=== PATIENT | male | born 1990 | race Caucasian/White ===

== ENCOUNTER 2016-09-08 13:22 | Inpatient (IN) | payer BC, OTHER ==
[2016-09-08] VITALS (16 sets, daily range): BP systolic 95–118; BP diastolic 62–85; PULSE 80–121; RESP 13–25; Ht 152.4 cm; Wt 40.1 kg
[~2016-09-08] VITALS: Ht 152.4 cm; Wt 40.1 kg
[2016-09-08] MEDS ORDERED: morphine 2 MG INJ IV PRN (15:30)
--- NOTE | 2016-09-08 16:21 | CONS ---
Date/Time of Note Date/Time of Note DATE: 09/08/16 TIME: 16:20 Assessment/Plan Assessment/Plan Additional Assessment/Plan 1. probable pna vs mucus plug 2. resp failure 3. g tube 4. fever 5. Musuclar dystrophy 6. stenotrophomonas colonization R: umaña cx procalc serial cxr possible bronch Vanco/zosyb/bactrim will follow closely with you. thank you for consulting Dr. Villa Consultation Date/Type/Reason Admit Date/Time Sep 08, 2016 at 15:10 Date of Consultation: Sep 08, 2016 Reason for Consultation abx; fever Referring Provider: SY VILLA Hx of Present Illness Mr Coreas is an unfortunate 26 yo male with hx of Muscular Dystrophy, resp failure , trach, gtube, recently admitted at [facility] for apparnet viral uri. He was treated for pna. Official records pending. He required trach/peg. He was recently at [facility], noted to be febrile and hypoxic with increased secretions. Plan for bronch. c/o fatigue/fever cough Constitutional: improved, no complaints Eyes: no complaints ENT: no complaints Respiratory: no complaints Past Medical History as per hpi Exam/Review of Systems Vital Signs Vitals Vital Signs Date Time Temp Pulse Resp B/P Pulse Ox O2 Delivery O2 Flow Rate FiO2 09/08/16 15:42 115 22 98 35 Exam Constitutional: alert, oriented, well developed Psych: nl mood/affect, no complaints Head: atraumatic, normocephalic Eyes: EOMI, PERRL, nl conjunctiva, nl lids, nl sclera ENMT: nl external ears & nose, nl lips & teeth, nl nasal mucosa & septum Neck: non-tender, supple Respiratory: normal air movement, other (rhonchi) Gastrointestinal: nl liver, spleen, non-tender, soft Musculoskeletal: nl extremities to inspection, nl gait and stance 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
[2016-09-08] MEDS ORDERED: VANCOMYCIN IV PER PHARMACY XX SCH (16:30)
[2016-09-08] MEDS: HYDROmorphONE 1 MG/ML SYG IV PRN ×2 (17:11→21:05)
[2016-09-08] MEDS: PIPER-TAZO 3.375 GM IV (PMX) 100 ML IVPB SCH (17:35)
[2016-09-08] MEDS ORDERED: DEXTROSE IVPB SCH (18:00)
[2016-09-08] MEDS ORDERED: VANCOMYCIN 750 MG in SOD CHLORIDE 0.9% 150 ML IVPB SCH (18:00)
[2016-09-08] MEDS ORDERED: SULFAMETHOXAZOLE IVPB SCH (18:00)
[2016-09-08] MEDS ORDERED: TRIMETHOPRIM IVPB SCH (18:00)
[2016-09-08 19:39] LABS: ADD UMIC NO; URINE BILIRUBIN (Dip) NEGATIVE (NEGATIVE); URINE BLOOD (Dip) NEGATIVE (NEGATIVE); URINE COLOR YELLOW (YELLOW); URINE GLUCOSE (Dip) NEGATIVE (NEGATIVE); URINE KETONES (Dip) NEGATIVE (NEGATIVE); URINE LEUKOCYTE ESTERASE (Dip) NEGATIVE (NEGATIVE); URINE NITRITE (Dip) NEGATIVE (NEGATIVE); URINE TOTAL PROTEIN (Dip) NEGATIVE (NEGATIVE); URINE UROBILINOGEN (Dip) 0.2 E.U./dL (0.1-1.0)
[2016-09-08] MEDS: DEXTROSE IVPB SCH (21:01)
[2016-09-08] MEDS: SULFAMETHOXAZOLE IVPB SCH (21:01)
[2016-09-08] MEDS: TRIMETHOPRIM IVPB SCH (21:01)
[2016-09-09] VITALS (36 sets, daily range): BP systolic 93–120; BP diastolic 59–76; PULSE 71–108; RESP 12–26
[2016-09-09] MEDS: HYDROmorphONE 1 MG/ML SYG IV PRN ×6 (00:24→22:16)
[2016-09-09] MEDS: PIPER-TAZO 3.375 GM IV (PMX) 100 ML IVPB SCH ×4 (00:55→18:31)
[2016-09-09] MEDS: VANCOMYCIN 500MG/NS (PMX) 100 ML IVPB SCH ×3 (03:08→19:43)
[2016-09-09] MEDS: TRIMETHOPRIM IVPB SCH ×3 (05:09→20:15)
[2016-09-09] MEDS: DEXTROSE IVPB SCH ×3 (05:09→20:15)
[2016-09-09] MEDS: SULFAMETHOXAZOLE IVPB SCH ×3 (05:09→20:15)
[2016-09-09 06:22] LABS: POTASSIUM 3.8 mmol/L (3.5-5.1)
[2016-09-09 06:25] LABS: BASOPHIL # 0.1 10^3/ul (0.0-0.1); CREATININE 0.17 mg/dl (0.61-1.24); EOSINOPHILS # 0.3 10^3/ul (0.0-0.5); HEMATOCRIT 28.7 % (42.0-52.0); HEMOGLOBIN 9.8 g/dl (14.0-18.0); LYMPHOCYTES % 29.7 % (15.0-51.0); MEAN CORPUSCULAR HEMOGLOBIN 30.1 pg (29.0-33.0); MEAN CORPUSCULAR HGB CONC 34.2 g/dl (32.0-37.0); MEAN PLATELET VOLUME 7.8 fl (7.4-10.4); MONOCYTE # 0.5 10^3/ul (0.3-0.9); MONOCYTES % 7.3 % (0.0-11.0); NEUTROPHIL # 3.8 10^3/ul (1.6-7.5); PLATELET COUNT 308 10^3/UL (140-440); RED BLOOD COUNT 3.26 10^6/ul (4.70-6.10); RED CELL DISTRIBUTION WIDTH 15.1 % (11.5-14.5); UNCORRECTED WBC 6.6 10^3/ul (4.8-10.8); WHITE BLOOD COUNT 6.6 10^3/ul (4.8-10.8)
[2016-09-09 06:26] LABS: CALCIUM 9.1 mg/dl (8.4-10.2); PHOSPHORUS 5.9 mg/dl (2.5-4.9)
[2016-09-09 06:29] LABS: CONDITION 1; LH ANALYZER COMMENTS 1
--- NOTE | 2016-09-09 07:45 | CONS ---
Date/Time of Note Date/Time of Note DATE: 09/09/16 TIME: 07:41 Assessment/Plan Assessment/Plan Additional Assessment/Plan Assessment and recommendations; next 1. Patient transferred from [facility] for bronchoscopy because of persistent left lower lobe atelectasis which has been refractory to Mucomyst and chest PT. 2. Improving leukocytosis as well as resolution of fever. 3. Possibly left lower lobe pneumonia. Patient currently on appropriate antibiotic regimen. 4. [place] muscular dystrophy causing chronic respiratory failure. 5. Prior history of mucus plugging requiring bronchoscopy at the previous hospital before transfer to [facility]. Continue current treatment. Patient is scheduled for a bronchoscopy which will be performed shortly. Consent has been obtained. Consultation Date/Type/Reason Admit Date/Time Sep 08, 2016 at 15:10 Initial Consult Date 09/08/16 Type of Consultation: Pulmonary/critical care Referring Provider: SY VENTURA 24 HR Interval Summary Free Text/Dictation Patient was transferred over from [facility] for bronchoscopy because of persistent left lower lobe atelectasis. Patient also developed low- grade fever with leukocytosis. Patient denies any shortness of breath however he has been switched over to CPAP mode from T piece. General examination; young male, on ventilator via tracheostomy currently in no distress awake and alert. Exam/Review of Systems Vital Signs Vitals Vital Signs Date Time Temp Pulse Resp B/P Pulse Ox O2 Delivery O2 Flow Rate FiO2 09/09/16 07:00 78 14 110/76 99 Mechanical Ventilator 09/09/16 05:12 35 09/09/16 04:00 97.9 Intake and Output 09/08/16 09/08/16 09/09/16 15:00 23:00 07:00 Intake Total 386 ml 651 ml Output Total 150 ml 100 ml Balance 236 ml 551 ml Exam H EENT examination; supple neck, no JVD. No lymphadenopathy. Tracheostomy in place with clean insertion site. Pupils are midsize reactive to light. Pharynx is clear. Good dentition. Chest examination; diminished breath sounds left lower lobe otherwise clear. S1 -S2 audible, no murmurs. Regular rhythm. Abdomen examination; soft, G-tube in place, no organomegaly. Bowel sounds audible. Extremity examination; no peripheral edema. Pulses 1+ bilaterally. 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 Results Result Diagram: 09/09/16 0515 09/09/16 0515 Results 24 hrs Laboratory Tests Test 09/08/16 17:20 09/08/16 18:45 09/09/16 05:15 Lactic Acid Level 0.6 Urine Bilirubin NEGATIVE Urine Clarity CLEAR Urine Color YELLOW Urine Glucose NEGATIVE Urine Hemoglobin NEGATIVE Urine Ketones NEGATIVE Urine Leukocyte Esterase NEGATIVE Urine Nitrite NEGATIVE Urine Specific [place] 1.015 Urine Total Protein NEGATIVE Urine Urobilinogen 0.2 E.U./dL Urine pH 7.5 Anion Gap 15 Basophils # 0.1 Basophils % 1.0 Blood Morphology Comment Blood Urea Nitrogen 18 Calcium Level 9.1 Carbon Dioxide Level 28 Chloride Level 98 Creatinine 0.17 L Eosinophils # 0.3 Eosinophils % 5.0 Glucose Level 96 Hematocrit 28.7 L Hemoglobin 9.8 L Lymphocytes # 2.0 Lymphocytes % 29.7 Magnesium Level 2.0 Mean Corpuscular Hemoglobin 30.1 Mean Corpuscular Hemoglobin Concent 34.2 Mean Corpuscular Volume 88.0 Mean Platelet Volume 7.8 Monocytes # 0.5 Monocytes % 7.3 Neutrophils # 3.8 Neutrophils % 57.0 Nucleated Red Blood Cells # 0.0 Nucleated Red Blood Cells % 0.0 Phosphorus Level 5.9 H Platelet Count 308 Potassium Level 3.8 Red Blood Count 3.26 L Red Cell Distribution Width 15.1 H Sodium Level 137 White Blood Count 6.6 # Medications Medications Current Medications Ondansetron HCl 4 mg 4 mg Q6H PRN IV NAUSEA AND/OR VOMITING; Start 09/08/16 at 15:30 Piperacillin Sod/ Tazobactam Sod (Zosyn 3.375gm/ 100 ml (Pmx)) 100 ml @ 200 mls /hr Q6 IVPB Last administered on 09/09/16 06:07; Admin Dose 200 MLS/HR; Start 09/08/16 at 18:00 Hydromorphone HCl 0.5 mg 0.5 mg Q1H PRN IV PAIN Last administered on 09/09/16 03:08; Admin Dose 0.5 MG; Start 09/08/16 at 17:00 Vancomycin HCl 100 ml @ 100 mls/hr Q8H IVPB Last administered on 09/09/16 03: 08; Admin Dose 100 MLS/HR; Start 09/09/16 at 03:00 Trimethoprim/ Sulfamethoxazole/ Dextrose (Bactrim/D5W) 250 ml @ 166 mls/hr Q8H IVPB Last administered on 09/09/16t 05:09; Admin Dose 166 MLS/HR; Start at 20:00 Miscellaneous Information (*Rx Drug Level Order Reminder*) GERSON BOWLING PRIOR TO 1... ONCE ONCE XX ; Start 09/09/16 at 18:00; Stop 09/09/16 at 18:01 SY VENTURA Sep 09, 2016 07:44
[2016-09-09] MEDS ORDERED: MIDAZOLAM 1 MG/ML 2 ML INJ IV ONE ×2 (08:00→09:20)
[2016-09-09] MEDS: ACETYLCYSTEINE 20% 4 ML VIAL NEB ONE (08:00)
[2016-09-09] MEDS ORDERED: FENTAnyl 50 MCG/ML VIAL IV ONE (08:00)
[2016-09-09] MEDS ORDERED: LIDOCAINE 1% (MDV) 20 ML INJ ONE (09:14)
--- NOTE | 2016-09-09 09:37 | EN ---
Date/Time of Note Date/Time of Note DATE: 09/09/16 TIME: 09:31 Event Note Surgery Surgery Event Note This is a bronchoscopy note. Start time was 9:05 AM finish time was 9:25 AM Indication; patient admitted with persistent left lower lobe atelectasis, bronchoscopies to rule out endobronchial mucous plugging involving the left lower lobe area. Sedation given; patient was given 50 g of fentanyl IV push preoperatively , 40 mg of Versed as well in 2 mg increments. Topical anesthesia was achieved by instilling 5 cc of 1% lidocaine through the tracheostomy tube. Informed consent was obtained from the patient's parents earlier. Patient already was on mechanical ventilation. He was switched over to SIMV with a rate of 10, tidal volume 400, PEEP of 4 and 100% FiO2. Scope was introduced by the colostomy tube. Distal trachea was normal, azam was sharp and well-defined. The scope was introduced into the right mainstem bronchus with evaluation of the right upper lobe, bronchus intermedius, superior segment of the lower lobe, middle lobe and lower lobes that were completely normal except for very minimal strands of mucus which were suctioned out, the scope was introduced into the left mainstem bronchus with evaluation of the left upper lobe, lingula which were normal, the scope was then introduced into left lower lobe with revelation of partial obstruction of left lower lobe lateral segment with mucus which was suctioned out readily after instilling normal saline. There was no endobronchial inflammation present. Superior segment of the lower lobe also was evaluated which was normal. The scope was then withdrawn .The procedure was well tolerated with stable cardiac rhythm, vital signs and O2 saturation. SY VENTURA Sep 09, 2016 09:37
[2016-09-09] MEDS ORDERED: LIDOCAINE 1% (MDV) 20 ML INJ MT ONE (10:00)
--- NOTE | 2016-09-09 10:58 | HP ---
DATE OF ADMISSION: 09/08/2016 TIME SEEN: 2300. CHIEF COMPLAINT: Hypoxia. HISTORY OF PRESENT ILLNESS: The patient is a 26-year-old male with a history of muscular dystrophy, respiratory failure status post tracheostomy, G tube placement and was transferred from [facility] after he was hypoxic. The patient also has been treated recently for pneumonia. There was a co ncern for a possible mucus plug, so he was transferred to the hospital and on the ICU for possible b ronchoscopy. REVIEW OF SYSTEMS: Negative except as mentioned in HPI. PAST MEDICAL HISTORY: As per HPI. PAST SURGICAL HISTORY: As per HPI. SOCIAL HISTORY: No history of tobacco, alcohol or illicit drug use. ALLERGIES AND HOME MEDICATIONS: See reconciled meds. PHYSICAL EXAMINATION: VITAL SIGNS: Blood pressure 145/85, heart rate 98, respiratory rate 20, temperature 98.8, oxygen sa turation 97% on 40% FIO2. GENERAL: The patient lying in bed, no acute distress. HEENT: No obvious head deformity. Pupils are reactive to light. NECK: Has a trach tube in place. CHEST: He had diminished breath sounds anteriorly. No wheezes or rhonchi were heard. ABDOMEN: Soft with G-tube in place with no grimaces noted on palpation. No rigidity. EXTREMITIES: No edema. IMPRESSION: 1. Hypoxia, possible mucus plug versus pneumonia. 2. History of muscular dystrophy. 3. Acute respiratory failure, status post tracheostomy, next G-tube in place. PLAN: Continue ICU monitoring. Continue his antibiotics. We will continue to trach support, oxyge n and as needed bronchodilators. The patient will be seen by pulmonary for possible bronchoscopy. He will continue his home medication with adjustment as needed. Continue DVT prophylaxis. Total time spent in this critical time spent is about 40 minutes. Further workup and management per clinical course. Dictated By: JANUSZ BONILLA/KAITLIN Conf#: [id number] DID#: [id number]
--- NOTE | 2016-09-09 11:21 | CONS ---
Date/Time of Note Date/Time of Note DATE: 09/09/16 TIME: 11:17 Assessment/Plan Assessment/Plan Chief Complaint/Hosp Course - SIRS vs early sepsis d/t probable PNA. Fever, tachycardia and mild leukocytosis at [facility] has resolved - mucus plug +/- probable PNA; s/p bronch 09/09/2016 - chronic respiratory failure s/p trach 07/2016 - Recent Hx severe PNA and bronch at [facility] in July 2016. - Dysphagia s/p g tube 07/2016 - [place] musuclar dystrophy - stenotrophomonas colonization Recommendations: - F/u umaña cx: Blood cx (pending); urine cx (negative to date); sputum cx ( normal resp polly); MRSA screen (pending); rapid influenza screen (negative). - F/u procalc 09/08 (pending) - serial CXR - Continue empiric Vanco/zosyn/bactrim (09/08/16-) - Above d/w Dr. Guevara - Critical care time spent: 35 minutes Problems: Consultation Date/Type/Reason Admit Date/Time Sep 08, 2016 at 15:10 Initial Consult Date 09/08/16 Type of Consultation: Infectious Disease Referring Provider: SY VENTURA 24 HR Interval Summary Free Text/Dictation S/p bronch today and remains on contact isolation because MRSA screen in progress per DREW Rodas. Nods no CP or SOB. Exam/Review of Systems Vital Signs Vitals Vital Signs Date Time Temp Pulse Resp B/P Pulse Ox O2 Delivery O2 Flow Rate FiO2 09/09/16 09:30 86 21 100 100 09/09/16 07:00 110/76 Mechanical Ventilator 09/09/16 04:00 97.9 Intake and Output 09/08/16 09/08/16 09/09/16 15:00 23:00 07:00 Intake Total 386 ml 651 ml Output Total 150 ml 100 ml Balance 236 ml 551 ml Exam Constitutional: alert, frail, oriented Head: atraumatic, normocephalic ENMT: other (trach midline and intact with ventilator support) Neck: supple Respiratory: other (coarse breath sounds) Cardiovascular: regular rate and rhythm Gastrointestinal: bowel sounds, non-tender, other (G tube clamped and intact), soft Extremities: normal pulses, other (atrophy noted), No clubbing, No cyanosis, No edema Neurological: nl mental status, other (quadriplegic) Skin: nl turgor, No rash or lesions Results Result Diagram: 09/09/1615 09/09/16 0515 Results 24 hrs Laboratory Tests Test 09/08/16 17:20 09/08/16 18:45 09/09/16 05:15 Lactic Acid Level 0.6 Urine Bilirubin NEGATIVE Urine Clarity CLEAR Urine Color YELLOW Urine Glucose NEGATIVE Urine Hemoglobin NEGATIVE Urine Ketones NEGATIVE Urine Leukocyte Esterase NEGATIVE Urine Nitrite NEGATIVE Urine Specific [place] 1.015 Urine Total Protein NEGATIVE Urine Urobilinogen 0.2 E.U./dL Urine pH 7.5 Anion Gap 15 Basophils # 0.1 Basophils % 1.0 Blood Morphology Comment Blood Urea Nitrogen 18 Calcium Level 9.1 Carbon Dioxide Level 28 Chloride Level 98 Creatinine 0.17 L Eosinophils # 0.3 Eosinophils % 5.0 Glucose Level 96 Hematocrit 28.7 L Hemoglobin 9.8 L Lymphocytes # 2.0 Lymphocytes % 29.7 Magnesium Level 2.0 Mean Corpuscular Hemoglobin 30.1 Mean Corpuscular Hemoglobin Concent 34.2 Mean Corpuscular Volume 88.0 Mean Platelet Volume 7.8 Monocytes # 0.5 Monocytes % 7.3 Neutrophils # 3.8 Neutrophils % 57.0 Nucleated Red Blood Cells # 0.0 Nucleated Red Blood Cells % 0.0 Phosphorus Level 5.9 H Platelet Count 308 Potassium Level 3.8 Red Blood Count 3.26 L Red Cell Distribution Width 15.1 H Sodium Level 137 White Blood Count 6.6 # Medications Medications Current Medications Ondansetron HCl 4 mg 4 mg Q6H PRN IV NAUSEA AND/OR VOMITING; Start 09/08/16 at 15:30 Piperacillin Sod/ Tazobactam Sod (Zosyn 3.375gm/ 100 ml (Pmx)) 100 ml @ 200 mls /hr Q6 IVPB Last administered on 09/09/16 06:07; Admin Dose 200 MLS/HR; Start 09/08/16 at 18:00 Hydromorphone HCl 0.5 mg 0.5 mg Q1H PRN IV PAIN Last administered on 09/09/16 03:08; Admin Dose 0.5 MG; Start 09/08/16 at 17:00 Vancomycin HCl 100 ml @ 100 mls/hr Q8H IVPB Last administered on 09/09/16 03: 08; Admin Dose 100 MLS/HR; Start 09/09/16 at 03:00 Trimethoprim/ Sulfamethoxazole/ Dextrose (Bactrim/D5W) 250 ml @ 166 mls/hr Q8H IVPB Last administered on 09/09/16 05:09; Admin Dose 166 MLS/HR; Start at 20:00 Miscellaneous Information (*Rx Drug Level Order Reminder*) HERNANDEZO NAMRATA AGARWALE PRIOR TO 1... ONCE ONCE XX ; Start 09/09/16 at 18:00; Stop 09/09/16 at 18:01 Procedures Procedures CXR 09/08/16: Stable diffuse mild interstitial prominence in both lungs. Retrocardiac opacity that may reflect left lower lobe atelectasis or infiltrate combined with small pleural effusion. CHERYL SOTOMAYOR NP Sep 09, 2016 11:21 CHERYL SOTOMAYOR NP Sep 09, 2016 11:21
--- NOTE | 2016-09-09 13:53 | PN ---
Date/Time of Note Date/Time of Note DATE: 09/09/16 TIME: 13:49 Assessment/Plan VTE Prophylaxis VTE Prophylaxis Intervention: SCD's Lines/Catheters IV C[facility]ter Type [facility]from [facility] Peripheral IV Urinary Cath still in place: No Assessment/Plan Chief Complaint/Hosp Course 1. Hypoxia 2/2 mucus plug s/p Bronch- Improved 2. History of muscular dystrophy -cont vent support, family would like to ultimately bring the pt back home 3. SIRS 2/2 PNA-Improved -ID on case, cont Abx PPx- SCD's Problems: Subjective 24 Hr Interval Summary Constitutional: no complaints Exam/Review of Systems Vital Signs Vitals Vital Signs Date Time Temp Pulse Resp B/P Pulse Ox O2 Delivery O2 Flow Rate FiO2 09/09/16 12:00 98.6 80 20 120/60 100 Mechanical Ventilator 09/09/16 11:40 30 Intake and Output 09/08/16 09/08/16 09/09/16 15:00 23:00 07:00 Intake Total 386 ml 651 ml Output Total 150 ml 100 ml Balance 236 ml 551 ml Exam Constitutional: alert Respiratory: clear to auscultation Cardiovascular: regular rate and rhythm Gastrointestinal: soft, No distended Musculoskeletal: nl extremities to inspection Results Result Diagram: 09/09/16 0515 09/09/16 0515 Results 24 hrs Laboratory Tests Test 09/08/16 17:20 09/08/16 18:45 09/09/16 05:15 Lactic Acid Level 0.6 Urine Bilirubin NEGATIVE Urine Clarity CLEAR Urine Color YELLOW Urine Glucose NEGATIVE Urine Hemoglobin NEGATIVE Urine Ketones NEGATIVE Urine Leukocyte Esterase NEGATIVE Urine Nitrite NEGATIVE Urine Specific [place] 1.015 Urine Total Protein NEGATIVE Urine Urobilinogen 0.2 E.U./dL Urine pH 7.5 Anion Gap 15 Basophils # 0.1 Basophils % 1.0 Blood Morphology Comment Blood Urea Nitrogen 18 Calcium Level 9.1 Carbon Dioxide Level 28 Chloride Level 98 Creatinine 0.17 L Eosinophils # 0.3 Eosinophils % 5.0 Glucose Level 96 Hematocrit 28.7 L Hemoglobin 9.8 L Lymphocytes # 2.0 Lymphocytes % 29.7 Magnesium Level 2.0 Mean Corpuscular Hemoglobin 30.1 Mean Corpuscular Hemoglobin Concent 34.2 Mean Corpuscular Volume 88.0 Mean Platelet Volume 7.8 Monocytes # 0.5 Monocytes % 7.3 Neutrophils # 3.8 Neutrophils % 57.0 Nucleated Red Blood Cells # 0.0 Nucleated Red Blood Cells % 0.0 Phosphorus Level 5.9 H Platelet Count 308 Potassium Level 3.8 Red Blood Count 3.26 L Red Cell Distribution Width 15.1 H Sodium Level 137 White Blood Count 6.6 # Medications Medications Current Medications Ondansetron HCl 4 mg 4 mg Q6H PRN IV NAUSEA AND/OR VOMITING; Start 09/08/16 at 15:30 Piperacillin Sod/ Tazobactam Sod (Zosyn 3.375gm/ 100 ml (Pmx)) 100 ml @ 200 mls /hr Q6 IVPB Last administered on 09/09/16 13:35; Admin Dose 200 MLS/HR; Start 09/08/16 at 18:00 Hydromorphone HCl 0.5 mg 0.5 mg Q1H PRN IV PAIN Last administered on 09/09/16 03:08; Admin Dose 0.5 MG; Start 09/08/16 at 17:00 Vancomycin HCl 100 ml @ 100 mls/hr Q8H IVPB Last administered on 09/09/16 12: 20; Admin Dose 100 MLS/HR; Start 09/09/16 at 03:00 Trimethoprim/ Sulfamethoxazole/ Dextrose (Bactrim/D5W) 250 ml @ 166 mls/hr Q8H IVPB Last administered on 09/09/16 05:09; Admin Dose 166 MLS/HR; Start at 20:00 Miscellaneous Information (*Rx Drug Level Order Reminder*) GERSON BOWLING PRIOR TO 1... ONCE ONCE XX ; Start 09/09/16 at 18:00; Stop 09/09/16 at 18:01 JAD GONZALEZ Sep 09, 2016 13:52
[2016-09-09] MEDS ORDERED: ALBUTEROL/IPRATROPIUM (NEB) 3 ML AMP HHN PRN (22:30)
[2016-09-10] VITALS (35 sets, daily range): BP systolic 89–156; BP diastolic 51–100; PULSE 66–99; RESP 12–26
[2016-09-10] MEDS: PIPER-TAZO 3.375 GM IV (PMX) 100 ML IVPB SCH ×4 (00:05→17:31)
[2016-09-10] MEDS: HYDROmorphONE 1 MG/ML SYG IV PRN ×9 (00:50→22:49)
[2016-09-10] MEDS: ALBUTEROL HFA 8 GM INHALER INH PRN ×2 (03:35→11:07)
[2016-09-10] MEDS: IPRATROPIUM (HFA) 12.9 GM INHALER INH PRN ×2 (03:35→11:07)
[2016-09-10] MEDS: VANCOMYCIN 750 MG in SOD CHLORIDE 0.9% 150 ML IVPB SCH ×3 (03:52→18:47)
[2016-09-10] MEDS: TRIMETHOPRIM IVPB SCH ×3 (04:54→20:30)
[2016-09-10] MEDS: DEXTROSE IVPB SCH ×3 (04:54→20:30)
[2016-09-10] MEDS: SULFAMETHOXAZOLE IVPB SCH ×3 (04:54→20:30)
[2016-09-10 06:37] LABS: BASOPHIL # 0.1 10^3/ul (0.0-0.1); BASOPHILS % 1.1 % (0.0-2.0); EOSINOPHILS # 0.2 10^3/ul (0.0-0.5); EOSINOPHILS % 3.9 % (0.0-7.0); HEMATOCRIT 27.4 % (42.0-52.0); HEMOGLOBIN 9.3 g/dl (14.0-18.0); LYMPHOCYTES # 1.5 10^3/ul (0.8-2.9); LYMPHOCYTES % 30.2 % (15.0-51.0); MEAN CORPUSCULAR HEMOGLOBIN 29.8 pg (29.0-33.0); MEAN CORPUSCULAR HGB CONC 33.9 g/dl (32.0-37.0); MEAN CORPUSCULAR VOLUME 87.8 fl (82.0-101.0); MEAN PLATELET VOLUME 7.9 fl (7.4-10.4); MONOCYTE # 0.3 10^3/ul (0.3-0.9); NEUTROPHILS % 58.8 % (39.0-77.0); PLATELET COUNT 266 10^3/UL (140-440); RED BLOOD COUNT 3.11 10^6/ul (4.70-6.10); RED CELL DISTRIBUTION WIDTH 14.9 % (11.5-14.5); UNCORRECTED WBC 5.1 10^3/ul (4.8-10.8); WHITE BLOOD COUNT 5.1 10^3/ul (4.8-10.8)
[2016-09-10 06:51] LABS: POTASSIUM 3.6 mmol/L (3.5-5.1)
[2016-09-10 06:53] LABS: CONDITION 1; LH ANALYZER COMMENTS 1
[2016-09-10 06:54] LABS: CREATININE 0.19 mg/dl (0.61-1.24)
--- NOTE | 2016-09-10 07:36 | RADRPT ---
PROCEDURE: XR Chest. CLINICAL INDICATION: pneumonia TECHNIQUE: Portable single view of the chest COMPARISON: 09/08 FINDINGS: Tracheostomy tube and left lower lobe atelectasis or infiltrate again seen. Spinal fixation hardwar e again seen. The right lung remains clear. IMPRESSION: No significant interval change. RPTAT: [facility]BE Terri Holloway, Physician Date Time Electronically viewed and signed by Terri Holloway, Physician on 09/10/2016 07:35 REYNALDO/
[2016-09-10] MEDS: ONDANSETRON 4 MG INJ IV PRN ×4 (08:52→22:55)
--- NOTE | 2016-09-10 13:57 | PN ---
Date/Time of Note Date/Time of Note DATE: 09/10/16 TIME: 13:56 Assessment/Plan VTE Prophylaxis VTE Prophylaxis Intervention: SCD's Lines/Catheters IV Catheter Type (from Nrs): Peripheral IV Urinary Cath still in place: No Assessment/Plan Chief Complaint/Hosp Course 1. Hypoxia 2/2 mucus plug s/p Bronch- Improved 2. History of muscular dystrophy -cont vent support, family would like to ultimately bring the pt back home 3. SIRS 2/2 PNA-Improved -ID on case, cont Abx 4. Nausea -Zofran/Reglan PRN PPx- SCD's Problems: Subjective 24 Hr Interval Summary Gastrointestinal: nausea Musculoskeletal: bone/joint pain Exam/Review of Systems Vital Signs Vitals Vital Signs Date Time Temp Pulse Resp B/P Pulse Ox O2 Delivery O2 Flow Rate FiO2 09/10/16 12:00 98.1 94 17 117/78 98 Mechanical Ventilator 09/10/16 05:36 30 Intake and Output 09/09/16 09/09/16 09/10/16 15:00 23:00 07:00 Intake Total 290 ml 1041 ml 940 ml Output Total 250 ml 250 ml 180 ml Balance 40 ml 791 ml 760 ml Exam Constitutional: alert, oriented Respiratory: clear to auscultation Cardiovascular: regular rate and rhythm Gastrointestinal: soft, No distended Musculoskeletal: nl extremities to inspection Results Result Diagram: 09/10/16 0530 09/10/16 0530 Results 24 hrs Laboratory Tests Test 09/09/16 18:24 09/10/16 05:30 Vancomycin Level Trough 9.7 L Anion Gap 17 H Basophils # 0.1 Basophils % 1.1 Blood Morphology Comment Blood Urea Nitrogen 10 Calcium Level 9.0 Carbon Dioxide Level 24 Chloride Level 100 Creatinine 0.19 L Eosinophils # 0.2 Eosinophils % 3.9 Glucose Level 134 Hematocrit 27.4 L Hemoglobin 9.3 L Lymphocytes # 1.5 Lymphocytes % 30.2 Mean Corpuscular Hemoglobin 29.8 Mean Corpuscular Hemoglobin Concent 33.9 Mean Corpuscular Volume 87.8 Mean Platelet Volume 7.9 Monocytes # 0.3 Monocytes % 6.0 Neutrophils # 3.0 Neutrophils % 58.8 Nucleated Red Blood Cells # 0.0 Nucleated Red Blood Cells % 0.0 Platelet Count 266 Potassium Level 3.6 Red Blood Count 3.11 L Red Cell Distribution Width 14.9 H Sodium Level 137 White Blood Count 5.1 # Medications Medications Current Medications Ondansetron HCl 4 mg 4 mg Q6H PRN IV NAUSEA AND/OR VOMITING Last administered on 09/10/16 13:06; Admin Dose 4 MG; Start 09/08/16 at 15:30 Piperacillin Sod/ Tazobactam Sod (Zosyn 3.375gm/ 100 ml (Pmx)) 100 ml @ 200 mls /hr Q6 IVPB Last administered on 09/10/16 11:49; Admin Dose 200 MLS/HR; Start 09/08/16 at 18:00 Hydromorphone HCl 0.5 mg 0.5 mg Q1H PRN IV PAIN Last administered on 09/10/16 11:27; Admin Dose 0.5 MG; Start 09/08/16 at 17:00 Trimethoprim/ Sulfamethoxazole 10 ml/Dextrose 250 ml @ 166 mls/hr Q8H IVPB Last administered on 09/10/16 12:26; Admin Dose 166 MLS/HR; Start 09/08/16 at 20:00 Vancomycin HCl/ Sodium Chloride (Vancocin/NS) 150 ml @ 75 mls/hr Q8H IVPB Last administered on 09/10/16 11:49; Admin Dose 75 MLS/HR; Start 09/10/16 at 03 :00 Multivitamins (Thera-Plus) 5 ml DAILY GTB ; Start 09/11/16 at 09:00 Metoclopramide HCl (Reglan) 5 mg Q6H PRN IV NAUSEA; Start 09/10/16 at 13:30 JAD GONZALEZ Sep 10, 2016 13:57
[2016-09-10] MEDS: METOCLOPRAMIDE 10 MG INJ IV PRN ×2 (14:33→20:34)
--- NOTE | 2016-09-10 14:39 | CONS ---
Date/Time of Note Date/Time of Note DATE: 09/10/16 TIME: 14:38 Assessment/Plan Assessment/Plan Chief Complaint/Hosp Course - SIRS vs early sepsis d/t probable PNA. Fever, tachycardia and mild leukocytosis at [facility] has resolved - mucus plug s/p bronch 09/09/2016 - Probable PNA; Respiratory cx growing GNR - chronic respiratory failure s/p trach 07/2016 - Recent Hx severe PNA and bronch at [facility] in July 2016. - Dysphagia s/p g tube 07/2016 - Duchenne musuclar dystrophy - stenotrophomonas colonization Recommendations: - F/u umaña cx: Blood cx (negative to date); urine cx (negative to date); sputum cx (GNR +normal resp polly); MRSA screen (negative); rapid influenza screen ( negative). - F/u procalc 09/08 (pending) - serial CXR - Continue empiric Vanco/zosyn/bactrim (09/08/16-). Plan to de-escalate soon. Consider dc Vanco and Bactrim if blood cx remain negative - Add probiotic - Management d/w Pt and pt's mother and Dr. Harrington - Above d/w Dr. Guevara - Critical care time spent: 37 minutes Problems: Consultation Date/Type/Reason Admit Date/Time Sep 08, 2016 at 15:10 Initial Consult Date 09/08/16 Type of Consultation: Infectious Disease Referring Provider: SY VENTURA 24 HR Interval Summary Free Text/Dictation Remains afebrile with stable VS and normal WBC per DREW Gutierrez. Nods no to pain or SOB. Recently medicated for pain and medicated earlier for nausea; no vomiting per pt's mother. Denies abd pain, constipation, diarrhea, dysuria. Mother requesting probiotic. Exam/Review of Systems Vital Signs Vitals Vital Signs Date Time Temp Pulse Resp B/P Pulse Ox O2 Delivery O2 Flow Rate FiO2 09/10/16 12:00 98.1 94 17 117/78 98 Mechanical Ventilator 09/10/16 05:36 30 Intake and Output 09/09/16 09/09/16 09/10/16 15:00 23:00 07:00 Intake Total 290 ml 1041 ml 940 ml Output Total 250 ml 250 ml 180 ml Balance 40 ml 791 ml 760 ml Exam Constitutional: alert, frail, oriented Head: atraumatic, normocephalic ENMT: other (trach midline and intact with ventilator support) Neck: supple Respiratory: essentially clear to auscultation; no wheezing or use of accessory muscles Cardiovascular: regular rate and rhythm, normal S1, S2 Gastrointestinal: bowel sounds, non-tender, other (G tube clamped and intact), soft Extremities: normal pulses, other (atrophy noted and trace swelling on Right foot), No clubbing, No cyanosis Neurological: nl mental status, other (quadriplegic) Skin: nl turgor, No rash or lesions Results MICROBIOLOGY: Respiratory Culture 09/08/16: GRAM STAIN Final POLYMORPH. LEUKOCYTE 2+ GRAM POS COCCI IN PAIRS 1+ GRAM POSITIVE RODS 1+ RESPIRATORY CULTURE Preliminary Organism 1 GRAM NEGATIVE JOHNSON QUANTITY 1+ Organism 2 NORMAL RESPIRATORY POLLY QUANTITY 1+ Result Diagram: 09/10/1630 09/10/16 0530 Results 24 hrs Laboratory Tests Test 09/09/16 18:24 09/10/16 05:30 Vancomycin Level Trough 9.7 L Anion Gap 17 H Basophils # 0.1 Basophils % 1.1 Blood Morphology Comment Blood Urea Nitrogen 10 Calcium Level 9.0 Carbon Dioxide Level 24 Chloride Level 100 Creatinine 0.19 L Eosinophils # 0.2 Eosinophils % 3.9 Glucose Level 134 Hematocrit 27.4 L Hemoglobin 9.3 L Lymphocytes # 1.5 Lymphocytes % 30.2 Mean Corpuscular Hemoglobin 29.8 Mean Corpuscular Hemoglobin Concent 33.9 Mean Corpuscular Volume 87.8 Mean Platelet Volume 7.9 Monocytes # 0.3 Monocytes % 6.0 Neutrophils # 3.0 Neutrophils % 58.8 Nucleated Red Blood Cells # 0.0 Nucleated Red Blood Cells % 0.0 Platelet Count 266 Potassium Level 3.6 Red Blood Count 3.11 L Red Cell Distribution Width 14.9 H Sodium Level 137 White Blood Count 5.1 # Medications Medications Current Medications Ondansetron HCl 4 mg 4 mg Q6H PRN IV NAUSEA AND/OR VOMITING Last administered on 09/10/16 13:06; Admin Dose 4 MG; Start 09/08/16 at 15:30 Piperacillin Sod/ Tazobactam Sod (Zosyn 3.375gm/ 100 ml (Pmx)) 100 ml @ 200 mls /hr Q6 IVPB Last administered on 2/17/17at 11:49; Admin Dose 200 MLS/HR; Start 09/08/16 at 18:00 Hydromorphone HCl 0.5 mg 0.5 mg Q1H PRN IV PAIN Last administered on 09/10/16 14:35; Admin Dose 0.5 MG; Start 09/08/16 at 17:00 Trimethoprim/ Sulfamethoxazole 10 ml/Dextrose 250 ml @ 166 mls/hr Q8H IVPB Last administered on 09/10/16 12:26; Admin Dose 166 MLS/HR; Start 09/08/16 at 20:00 Vancomycin HCl/ Sodium Chloride (Vancocin/NS) 150 ml @ 75 mls/hr Q8H IVPB Last administered on 09/10/16 11:49; Admin Dose 75 MLS/HR; Start 09/10/16 at 03 :00 Multivitamins (Thera-Plus) 5 ml DAILY GTB ; Start 09/11/16 at 09:00 Metoclopramide HCl (Reglan) 5 mg Q6H PRN IV NAUSEA Last administered on 14:33; Admin Dose 5 MG; Start 09/10/16 at 13:30 Procedures Procedures CXR 09/10/16: FINDINGS: Tracheostomy tube and left lower lobe atelectasis or infiltrate again seen. Spinal fixation hardware again seen. The right lung remains clear. IMPRESSION: No significant interval change. CHERYL SOTOMAYOR NP Sep 10, 2016 14:39
[2016-09-10] MEDS: LACTOBACILLUS RHAMNOSUS CAP GTB SCH (20:30)
[2016-09-11] VITALS (27 sets, daily range): BP systolic 97–118; BP diastolic 50–87; PULSE 70–89; RESP 13–22
[2016-09-11] MEDS: HYDROmorphONE 1 MG/ML SYG IV PRN ×7 (00:55→20:35)
[2016-09-11] MEDS: PIPER-TAZO 3.375 GM IV (PMX) 100 ML IVPB SCH ×2 (00:55→06:11)
[2016-09-11] MEDS: METOCLOPRAMIDE 10 MG INJ IV PRN ×2 (02:37→08:41)
[2016-09-11] MEDS: SULFAMETHOXAZOLE IVPB SCH ×3 (03:59→21:00)
[2016-09-11] MEDS: DEXTROSE IVPB SCH ×3 (03:59→21:00)
[2016-09-11] MEDS: TRIMETHOPRIM IVPB SCH ×3 (03:59→21:00)
[2016-09-11] MEDS: IPRATROPIUM (HFA) 12.9 GM INHALER INH PRN (04:58)
[2016-09-11] MEDS: ALBUTEROL HFA 8 GM INHALER INH PRN (04:59)
[2016-09-11 05:45] LABS: BASOPHIL # 0.1 10^3/ul (0.0-0.1); BASOPHILS % 1.3 % (0.0-2.0); EOSINOPHILS # 0.1 10^3/ul (0.0-0.5); EOSINOPHILS % 1.6 % (0.0-7.0); HEMOGLOBIN 9.5 g/dl (14.0-18.0); LYMPHOCYTES % 13.3 % (15.0-51.0); MEAN CORPUSCULAR HEMOGLOBIN 29.9 pg (29.0-33.0); MEAN CORPUSCULAR HGB CONC 33.9 g/dl (32.0-37.0); MEAN CORPUSCULAR VOLUME 88.2 fl (82.0-101.0); MEAN PLATELET VOLUME 8.4 fl (7.4-10.4); MONOCYTE # 0.6 10^3/ul (0.3-0.9); MONOCYTES % 7.8 % (0.0-11.0); NEUTROPHIL # 5.9 10^3/ul (1.6-7.5); PLATELET COUNT 154 10^3/UL (140-440); RED BLOOD COUNT 3.17 10^6/ul (4.70-6.10); RED CELL DISTRIBUTION WIDTH 14.6 % (11.5-14.5); UNCORRECTED WBC 7.7 10^3/ul (4.8-10.8); WHITE BLOOD COUNT 7.7 10^3/ul (4.8-10.8)
[2016-09-11 05:58] LABS: CONDITION 1; LH ANALYZER COMMENTS 1
[2016-09-11 06:00] LABS: POTASSIUM 3.7 mmol/L (3.5-5.1)
[2016-09-11 06:02] LABS: CREATININE 0.27 mg/dl (0.61-1.24)
[2016-09-11 06:03] LABS: CALCIUM 8.5 mg/dl (8.4-10.2)
[2016-09-11] MEDS: ONDANSETRON 4 MG INJ IV PRN ×2 (06:11→13:39)
[2016-09-11] MEDS: LACTOBACILLUS RHAMNOSUS CAP GTB SCH ×2 (08:41→21:13)
[2016-09-11] MEDS: MULTIVITAMINS 5 ML CUP GTB SCH (08:41)
--- NOTE | 2016-09-11 10:55 | CONS ---
Date/Time of Note Date/Time of Note DATE: 09/11/16 TIME: 10:52 Assessment/Plan Assessment/Plan Chief Complaint/Hosp Course assessment/impressiom - h/o SIRS vs early sepsis - mucus plug s/p bronch 09/09/2016 - stenotrophomonas in the airway, possible colonization - chronic respiratory failure s/p trach 07/2016 - h/o severe PNA and bronch at [facility] in July 2016. - G tube dependence 07/2016 - Duchenne muscular dystrophy recommendations: - d/c empiric vanc and pip/tazo (09/08/16-). - complete 7 day course of Bactrim (09/08/2016-). This may be converted to PO management d/w Pt, his parents and [employer] the critical care time I took to care for this Pt today was from 1015 to 1045 Problems: Consultation Date/Type/Reason Admit Date/Time Sep 08, 2016 at 15:10 Initial Consult Date 09/08/16 Type of Consultation: Infectious Disease Referring Provider: SY VENTURA 24 HR Interval Summary Constitutional: no complaints Detailed Summary Eyes: no complaints ENT: no complaints Respiratory: other (trach) Cardiovascular: no complaints Gastrointestinal: No nausea Musculoskeletal: other (muscular dystrophy) Exam/Review of Systems Vital Signs Vitals Vital Signs Date Time Temp Pulse Resp B/P Pulse Ox O2 Delivery O2 Flow Rate FiO2 09/11/16 09:50 86 22 97 30 09/11/16 07:00 104/74 09/11/16 04:00 Mechanical Ventilator Trach Collar 09/11/16 04:00 98.6 Intake and Output 09/10/16 09/10/16 09/11/16 15:00 23:00 07:00 Intake Total 410 ml 1030 ml 100 ml Output Total 350 ml 250 ml 550 ml Balance 60 ml 780 ml -450 ml Exam Constitutional: frail Psych: no complaints Head: atraumatic, normocephalic Eyes: nl conjunctiva, nl lids ENMT: mucosa pink and moist, nl external ears & nose, nl nasal mucosa & septum Neck: other (trach) Respiratory: crackles/rales Cardiovascular: nl pulses, regular rate and rhythm Gastrointestinal: non-tender, other (GT), soft Extremities: No edema Skin: nl turgor Results Result Diagram: 09/11/16 0505 09/11/16 0505 Results 24 hrs Laboratory Tests Test 09/11/16 02:10 09/11/16 05:05 Vancomycin Level Trough 37.6 *H Anion Gap 16 Basophils # 0.1 Basophils % 1.3 Blood Morphology Comment Blood Urea Nitrogen 16 Calcium Level 8.5 Carbon Dioxide Level 22 Chloride Level 103 Creatinine 0.27 L Eosinophils # 0.1 Eosinophils % 1.6 Glucose Level 122 Hematocrit 28.0 L Hemoglobin 9.5 L Lymphocytes # 1.0 Lymphocytes % 13.3 L Mean Corpuscular Hemoglobin 29.9 Mean Corpuscular Hemoglobin Concent 33.9 Mean Corpuscular Volume 88.2 Mean Platelet Volume 8.4 Monocytes # 0.6 Monocytes % 7.8 Neutrophils # 5.9 Neutrophils % 76.0 Nucleated Red Blood Cells # 0.0 Nucleated Red Blood Cells % 0.0 Platelet Count 154 # Potassium Level 3.7 Red Blood Count 3.17 L Red Cell Distribution Width 14.6 H Sodium Level 137 White Blood Count 7.7 # Medications Medications Current Medications Piperacillin Sod/ Tazobactam Sod (Zosyn 3.375gm/ 100 ml (Pmx)) 100 ml @ 200 mls /hr Q6 IVPB Last administered on 09/11/16 06:11; Admin Dose 200 MLS/HR; Start 09/08/16 at 18:00 Hydromorphone HCl 0.5 mg 0.5 mg Q1H PRN IV PAIN Last administered on 09/11/16 10:50; Admin Dose 0.5 MG; Start 09/08/16 at 17:00 Trimethoprim/ Sulfamethoxazole/ Dextrose (Bactrim/D5W) 250 ml @ 166 mls/hr Q8H IVPB Last administered on 09/11/16 03:59; Admin Dose 166 MLS/HR; Start at 20:00 Multivitamins (Thera-Plus) 5 ml DAILY GTB Last administered on 09/11/16 08:41 ; Admin Dose 5 ML; Start 09/11/16 at 09:00 Metoclopramide HCl (Reglan) 5 mg Q6H PRN IV NAUSEA Last administered on 08:41; Admin Dose 5 MG; Start 09/10/16 at 13:30 Lactobacillus Acidophilus/ Rhamnosus (Culturelle) 1 cap BID GTB Last administered on 09/11/16 08:41; Admin Dose 1 CAP; Start 09/10/16 at 21:00 Ondansetron HCl 4 mg 4 mg Q4 PRN IV NAUSEA AND/OR VOMITING Last administered on 09/11/16 06:11; Admin Dose 4 MG; Start 09/10/16 at 21:00 Vancomycin HCl/ Sodium Chloride (Vancocin/NS) 150 ml @ 75 mls/hr Q12H IVPB ; Start 09/12/16 at 05:00 ROGELIO HINES M.D. Sep 11, 2016 10:55
--- NOTE | 2016-09-11 16:10 | PN ---
Date/Time of Note Date/Time of Note DATE: 09/11/16 TIME: 16:09 Assessment/Plan VTE Prophylaxis VTE Prophylaxis Intervention: SCD's Lines/Catheters IV Catheter Type (from [facility]): Peripheral IV Urinary Cath still in place: No Assessment/Plan Chief Complaint/Hosp Course 1. Hypoxia 2/2 mucus plug s/p Bronch- Improved 2. History of muscular dystrophy -cont vent support, family would like to ultimately bring the pt back home 3. SIRS 2/2 PNA-Improved -ID on case, cont Abx 4. Nausea -Zofran/Reglan PRN PPx- SCD's Problems: Subjective 24 Hr Interval Summary Constitutional: no complaints Exam/Review of Systems Vital Signs Vitals Vital Signs Date Time Temp Pulse Resp B/P Pulse Ox O2 Delivery O2 Flow Rate FiO2 09/11/16 13:30 82 14 98 30 09/11/16 07:00 104/74 09/11/16 04:00 Mechanical Ventilator Trach Collar 09/11/16 04:00 98.6 Intake and Output 09/10/16 09/10/16 09/11/16 15:00 23:00 07:00 Intake Total 410 ml 1030 ml 100 ml Output Total 350 ml 250 ml 550 ml Balance 60 ml 780 ml -450 ml Exam Constitutional: alert, oriented Respiratory: clear to auscultation Cardiovascular: regular rate and rhythm Gastrointestinal: soft, No distended Musculoskeletal: nl extremities to inspection Results Result Diagram: 09/11/16 0505 09/11/16 0505 Results 24 hrs Laboratory Tests Test 09/11/16 02:10 09/11/16 05:05 Vancomycin Level Trough 37.6 *H Anion Gap 16 Basophils # 0.1 Basophils % 1.3 Blood Morphology Comment Blood Urea Nitrogen 16 Calcium Level 8.5 Carbon Dioxide Level 22 Chloride Level 103 Creatinine 0.27 L Eosinophils # 0.1 Eosinophils % 1.6 Glucose Level 122 Hematocrit 28.0 L Hemoglobin 9.5 L Lymphocytes # 1.0 Lymphocytes % 13.3 L Mean Corpuscular Hemoglobin 29.9 Mean Corpuscular Hemoglobin Concent 33.9 Mean Corpuscular Volume 88.2 Mean Platelet Volume 8.4 Monocytes # 0.6 Monocytes % 7.8 Neutrophils # 5.9 Neutrophils % 76.0 Nucleated Red Blood Cells # 0.0 Nucleated Red Blood Cells % 0.0 Platelet Count 154 # Potassium Level 3.7 Red Blood Count 3.17 L Red Cell Distribution Width 14.6 H Sodium Level 137 White Blood Count 7.7 # Medications Medications Current Medications Hydromorphone HCl 0.5 mg 0.5 mg Q1H PRN IV PAIN Last administered on 09/11/16 13:38; Admin Dose 0.5 MG; Start 09/08/16 at 17:00 Trimethoprim/ Sulfamethoxazole/ Dextrose (Bactrim/D5W) 250 ml @ 166 mls/hr Q8H IVPB Last administered on 09/11/16 12:27; Admin Dose 166 MLS/HR; Start at 20:00; Stop 09/14/16 at 23:59 Multivitamins (Thera-Plus) 5 ml DAILY GTB Last administered on 09/11/16 08:41 ; Admin Dose 5 ML; Start 09/11/16 at 09:00 Metoclopramide HCl (Reglan) 5 mg Q6H PRN IV NAUSEA Last administered on 08:41; Admin Dose 5 MG; Start 09/10/16 at 13:30 Lactobacillus Acidophilus/ Rhamnosus (Culturelle) 1 cap BID GTB Last administered on 09/11/16 08:41; Admin Dose 1 CAP; Start 09/10/16 at 21:00 Ondansetron HCl (Zofran Inj) 4 mg Q4 PRN IV NAUSEA AND/OR VOMITING Last administered on 09/11/16 13:39; Admin Dose 4 MG; Start 09/10/16 at 21:00 JAD GONZALEZ Sep 11, 2016 16:10
--- NOTE | 2016-09-11 18:24 | CONS ---
Date/Time of Note Date/Time of Note DATE: 09/11/16 TIME: 18:21 Consult Date/Type/Reason Admit Date/Time Sep 08, 2016 at 15:10 Initial Consult Date 09/08/16 Type of Consultation: Pulm Ordering Provider: SY VENTURA Subjective Doing well on CPAP 5 PS 10. Objective Vital Signs Date Time Temp Pulse Resp B/P Pulse Ox O2 Delivery O2 Flow Rate FiO2 09/11/16 17:35 82 17 99 30 09/11/16 07:00 104/74 09/11/16 04:00 Mechanical Ventilator Trach Collar 09/11/16 04:00 98.6 Intake and Output 09/10/16 09/10/16 09/11/16 15:00 23:00 07:00 Intake Total 410 ml 1030 ml 100 ml Output Total 350 ml 250 ml 550 ml Balance 60 ml 780 ml -450 ml HEENT: Neck supple; no JVD; no LAD CVS: RRR, S1 and S2 CHEST: Clear ABD: Soft, NT, + BS EXT: No c/c/e Results/Medications Result Diagram: 09/11/16 0505 09/11/16 0505 Results 24 hrs Laboratory Tests Test 09/11/16 02:10 09/11/16 05:05 Vancomycin Level Trough 37.6 *H Anion Gap 16 Basophils # 0.1 Basophils % 1.3 Blood Morphology Comment Blood Urea Nitrogen 16 Calcium Level 8.5 Carbon Dioxide Level 22 Chloride Level 103 Creatinine 0.27 L Eosinophils # 0.1 Eosinophils % 1.6 Glucose Level 122 Hematocrit 28.0 L Hemoglobin 9.5 L Lymphocytes # 1.0 Lymphocytes % 13.3 L Mean Corpuscular Hemoglobin 29.9 Mean Corpuscular Hemoglobin Concent 33.9 Mean Corpuscular Volume 88.2 Mean Platelet Volume 8.4 Monocytes # 0.6 Monocytes % 7.8 Neutrophils # 5.9 Neutrophils % 76.0 Nucleated Red Blood Cells # 0.0 Nucleated Red Blood Cells % 0.0 Platelet Count 154 # Potassium Level 3.7 Red Blood Count 3.17 L Red Cell Distribution Width 14.6 H Sodium Level 137 White Blood Count 7.7 # Medications Current Medications Hydromorphone HCl 0.5 mg 0.5 mg Q1H PRN IV PAIN Last administered on 09/11/16t 17:56; Admin Dose 0.5 MG; Start 09/08/16 at 17:00 Trimethoprim/ Sulfamethoxazole/ Dextrose (Bactrim/D5W) 250 ml @ 166 mls/hr Q8H IVPB Last administered on 09/11/16 12:27; Admin Dose 166 MLS/HR; Start at 20:00; Stop 09/14/16 at 23:59 Multivitamins (Thera-Plus) 5 ml DAILY GTB Last administered on 09/11/16 08:41 ; Admin Dose 5 ML; Start 09/11/16 at 09:00 Metoclopramide HCl (Reglan) 5 mg Q6H PRN IV NAUSEA Last administered on 08:41; Admin Dose 5 MG; Start 09/10/16 at 13:30 Lactobacillus Acidophilus/ Rhamnosus (Culturelle) 1 cap BID GTB Last administered on 09/11/16 08:41; Admin Dose 1 CAP; Start 09/10/16 at 21:00 Ondansetron HCl (Zofran Inj) 4 mg Q4 PRN IV NAUSEA AND/OR VOMITING Last administered on 09/11/16 13:39; Admin Dose 4 MG; Start 09/10/16 at 21:00 Assessment/Plan Additional Assessment/Plan IMP: 1. s/p mucus plugging event 2. chronic partial LLL atelectasis 3. chronic resp failure -- s/p trach 4. muscular dystrophy RECS: 1. Transition to TC tomorrow 2. Also will try PM valve to allow phonation 3. Will initiate nocturnal vent support 35 min cc time KAVIN DOMINGUEZ MD Sep 11, 2016 18:24
[2016-09-12] VITALS (31 sets, daily range): BP systolic 119–139; BP diastolic 80–99; PULSE 61–122; RESP 11–25
[2016-09-12] MEDS: HYDROmorphONE 1 MG/ML SYG IV PRN ×8 (00:03→23:14)
[2016-09-12] MEDS: METOCLOPRAMIDE 10 MG INJ IV PRN ×4 (02:12→23:13)
[2016-09-12] MEDS: TRIMETHOPRIM IVPB SCH ×3 (03:56→20:27)
[2016-09-12] MEDS: DEXTROSE IVPB SCH ×3 (03:56→20:27)
[2016-09-12] MEDS: SULFAMETHOXAZOLE IVPB SCH ×3 (03:56→20:27)
[2016-09-12] MEDS ORDERED: VANCOMYCIN 750 MG in SOD CHLORIDE 0.9% 150 ML IVPB SCH (05:00)
--- NOTE | 2016-09-12 06:29 | RADRPT ---
PROCEDURE: XR, Chest. CLINICAL INDICATION: Follow up for respiratory distress. TECHNIQUE: AP chest. COMPARISON: Chest, 09/10/2016. FINDINGS: There is question of infiltrate in the left lower lobe. There is no acute infiltrate in the lungs. No pleural lesion. The heart is not enlarged. The tracheostomy tube remains in good position. Ag ain noted are Lou rods along the thoracolumbar spine. IMPRESSION: 1. Question of infiltrate in the left lower lobe. RPTAT: GG .Ifeanyi Foster MD, MD Date Time Electronically viewed and signed by .Ifeanyi Foster MD, MD on 09/12/2016 06:29 .Y/
[2016-09-12 06:47] LABS: POTASSIUM 3.6 mmol/L (3.5-5.1)
[2016-09-12 06:49] LABS: CREATININE 0.25 mg/dl (0.61-1.24)
[2016-09-12] MEDS: ONDANSETRON 4 MG INJ IV PRN ×3 (06:58→16:38)
[2016-09-12 07:00] LABS: BASOPHILS % 0.2 % (0.0-2.0); EOSINOPHILS # 0.1 10^3/ul (0.0-0.5); EOSINOPHILS % 0.9 % (0.0-7.0); HEMATOCRIT 30.4 % (42.0-52.0); HEMOGLOBIN 10.3 g/dl (14.0-18.0); LYMPHOCYTES % 13.3 % (15.0-51.0); MEAN CORPUSCULAR HEMOGLOBIN 29.8 pg (29.0-33.0); MEAN CORPUSCULAR HGB CONC 34.1 g/dl (32.0-37.0); MEAN CORPUSCULAR VOLUME 87.6 fl (82.0-101.0); MEAN PLATELET VOLUME 8.2 fl (7.4-10.4); MONOCYTE # 0.4 10^3/ul (0.3-0.9); MONOCYTES % 4.6 % (0.0-11.0); NEUTROPHIL # 6.2 10^3/ul (1.6-7.5); PLATELET COUNT 265 10^3/UL (140-440); RED BLOOD COUNT 3.46 10^6/ul (4.70-6.10); UNCORRECTED WBC 7.7 10^3/ul (4.8-10.8); WHITE BLOOD COUNT 7.7 10^3/ul (4.8-10.8)
[2016-09-12 07:21] LABS: CONDITION 1; LH ANALYZER COMMENTS 1
[2016-09-12] MEDS: MULTIVITAMINS 5 ML CUP GTB SCH (08:51)
[2016-09-12] MEDS: LACTOBACILLUS RHAMNOSUS CAP GTB SCH ×2 (08:51→21:23)
[2016-09-12] MEDS: IPRATROPIUM (HFA) 12.9 GM INHALER INH PRN ×2 (10:28→22:11)
[2016-09-12] MEDS: ALBUTEROL HFA 8 GM INHALER INH PRN ×2 (10:28→22:11)
--- NOTE | 2016-09-12 12:59 | PN ---
Date/Time of Note Date/Time of Note DATE: 09/12/16 TIME: 12:55 Assessment/Plan VTE Prophylaxis VTE Prophylaxis Intervention: SCD's Lines/Catheters IV [facility]from [facility] Peripheral IV Urinary Cath still in place: No Assessment/Plan Chief Complaint/Hosp Course 1. Hypoxia 2/2 mucus plug s/p Bronch- Improved 2. History of muscular dystrophy -cont vent support, family would like to ultimately bring the pt back home and do not want to send him back to [place], Pulmonary should arrange with and insurance as to what equipment will be needed 3. SIRS 2/2 PNA-Improved -ID on case, cont Abx 4. Nausea -Zofran/Reglan PRN -Tube feed rate decreased PPx- SCD's Problems: Subjective 24 Hr Interval Summary Constitutional: no complaints Exam/Review of Systems Vital Signs Vitals Vital Signs Date Time Temp Pulse Resp B/P Pulse Ox O2 Delivery O2 Flow Rate FiO2 09/12/16 12:00 98.4 93 11 129/84 97 CPAP 09/12/16 11:25 30 09/12/16 08:25 8.0 Intake and Output 09/11/16 09/11/16 09/12/16 15:00 23:00 07:00 Intake Total 260 ml 990 ml Output Total 920 ml 500 ml Balance -660 ml 490 ml Exam Constitutional: alert Respiratory: clear to auscultation Cardiovascular: regular rate and rhythm Gastrointestinal: soft, No distended Musculoskeletal: nl extremities to inspection Results Result Diagram: 09/12/16 0601 09/12/16 0601 Results 24 hrs Laboratory Tests Test 09/12/16 06:01 Anion Gap 16 Basophils # 0.0 Basophils % 0.2 Blood Morphology Comment Blood Urea Nitrogen 12 Calcium Level 9.0 Carbon Dioxide Level 23 Chloride Level 101 Creatinine 0.25 L Eosinophils # 0.1 Eosinophils % 0.9 Glucose Level 143 Hematocrit 30.4 L Hemoglobin 10.3 L Lymphocytes # 1.0 Lymphocytes % 13.3 L Mean Corpuscular Hemoglobin 29.8 Mean Corpuscular Hemoglobin Concent 34.1 Mean Corpuscular Volume 87.6 Mean Platelet Volume 8.2 Monocytes # 0.4 Monocytes % 4.6 Neutrophils # 6.2 Neutrophils % 81.0 H Nucleated Red Blood Cells # 0.0 Nucleated Red Blood Cells % 0.0 Platelet Count 265 # Potassium Level 3.6 Red Blood Count 3.46 L Red Cell Distribution Width 15.0 H Sodium Level 136 White Blood Count 7.7 Medications Medications Current Medications Hydromorphone HCl 0.5 mg 0.5 mg Q1H PRN IV PAIN Last administered on 09/12/16 10:30; Admin Dose 0.5 MG; Start 09/08/16 at 17:00 Trimethoprim/ Sulfamethoxazole/ Dextrose (Bactrim/D5W) 250 ml @ 166 mls/hr Q8H IVPB Last administered on 09/12/16 11:56; Admin Dose 166 MLS/HR; Start at 20:00; Stop 09/14/16 at 23:59 Multivitamins (Thera-Plus) 5 ml DAILY GTB Last administered on 09/12/16 08:51 ; Admin Dose 5 ML; Start 09/11/16 at 09:00 Metoclopramide HCl (Reglan) 5 mg Q6H PRN IV NAUSEA Last administered on 08:51; Admin Dose 5 MG; Start 09/10/16 at 13:30 Lactobacillus Acidophilus/ Rhamnosus (Culturelle) 1 cap BID GTB Last administered on 09/12/16 08:51; Admin Dose 1 CAP; Start 09/10/16 at 21:00 Ondansetron HCl (Zofran Inj) 4 mg Q4 PRN IV NAUSEA AND/OR VOMITING Last administered on 09/12/16 12:04; Admin Dose 4 MG; Start 09/10/16 at 21:00 JAD GONZALEZ Sep 12, 2016 12:59
--- NOTE | 2016-09-12 13:23 | CONS ---
MATT CUELLAR 09/12/16 1323: Date/Time of Note Date/Time of Note DATE: 09/12/16 TIME: 13:22 Assessment/Plan Assessment/Plan Additional Assessment/Plan - h/o SIRS vs early sepsis - mucus plug s/p bronch 09/09/2016 - stenotrophomonas in the airway, possible colonization - chronic respiratory failure s/p trach 07/2016 - h/o severe PNA and bronch at [facility] in July 2016. - G tube dependence 07/2016 - Duchenne muscular dystrophy recommendations: - complete 7 day course of Bactrim (09/08/2016-). This may be converted to PO when Tolerating PO better management d/w Pt, his mother and [employer]. And Dr Petersen the critical care time I took to care for this Pt today was from 13:00-13:30 Consultation Date/Type/Reason Admit Date/Time Sep 08, 2016 at 15:10 Initial Consult Date 09/08/16 Type of Consultation: ID Referring Provider: SY VENTURA 24 HR Interval Summary Subjective hx not possible: pt non-verbal, other (Trached) Constitutional: improved, other (TF on hold d/t high residuals), poor po Exam/Review of Systems Vital Signs Vitals Vital Signs Date Time Temp Pulse Resp B/P Pulse Ox O2 Delivery O2 Flow Rate FiO2 09/12/16 12:00 98.4 93 11 129/84 97 CPAP 09/12/16 11:25 30 09/12/16 08:25 8.0 Intake and Output 09/11/16 09/11/16 09/12/16 15:00 23:00 07:00 Intake Total 260 ml 990 ml Output Total 920 ml 500 ml Balance -660 ml 490 ml Exam Constitutional: alert, frail, oriented Psych: no complaints Head: atraumatic, normocephalic Eyes: EOMI, nl conjunctiva, nl sclera Neck: non-tender, other (trach--CDI), supple Respiratory: clear to auscultation Cardiovascular: regular rate and rhythm Gastrointestinal: bowel sounds, non-tender, soft Musculoskeletal: other (B/L atrophy) Neurological: nl mental status Results Result Diagram: 09/12/16 0601 09/12/16 0601 Results 24 hrs Laboratory Tests Test 09/12/16 06:01 Anion Gap 16 Basophils # 0.0 Basophils % 0.2 Blood Morphology Comment Blood Urea Nitrogen 12 Calcium Level 9.0 Carbon Dioxide Level 23 Chloride Level 101 Creatinine 0.25 L Eosinophils # 0.1 Eosinophils % 0.9 Glucose Level 143 Hematocrit 30.4 L Hemoglobin 10.3 L Lymphocytes # 1.0 Lymphocytes % 13.3 L Mean Corpuscular Hemoglobin 29.8 Mean Corpuscular Hemoglobin Concent 34.1 Mean Corpuscular Volume 87.6 Mean Platelet Volume 8.2 Monocytes # 0.4 Monocytes % 4.6 Neutrophils # 6.2 Neutrophils % 81.0 H Nucleated Red Blood Cells # 0.0 Nucleated Red Blood Cells % 0.0 Platelet Count 265 # Potassium Level 3.6 Red Blood Count 3.46 L Red Cell Distribution Width 15.0 H Sodium Level 136 White Blood Count 7.7 Medications Medications Current Medications Hydromorphone HCl 0.5 mg 0.5 mg Q1H PRN IV PAIN Last administered on 09/12/16 10:30; Admin Dose 0.5 MG; Start 09/08/16 at 17:00 Trimethoprim/ Sulfamethoxazole/ Dextrose (Bactrim/D5W) 250 ml @ 166 mls/hr Q8H IVPB Last administered on 09/12/16 11:56; Admin Dose 166 MLS/HR; Start at 20:00; Stop 09/14/16 at 23:59 Multivitamins (Thera-Plus) 5 ml DAILY GTB Last administered on 09/12/16 08:51 ; Admin Dose 5 ML; Start 09/11/16 at 09:00 Metoclopramide HCl (Reglan) 5 mg Q6H PRN IV NAUSEA Last administered on 08:51; Admin Dose 5 MG; Start 09/10/16 at 13:30 Lactobacillus Acidophilus/ Rhamnosus (Culturelle) 1 cap BID GTB Last administered on 09/12/16 08:51; Admin Dose 1 CAP; Start 09/10/16 at 21:00 Ondansetron HCl (Zofran Inj) 4 mg Q4 PRN IV NAUSEA AND/OR VOMITING Last administered on 09/12/16 12:04; Admin Dose 4 MG; Start 09/10/16 at 21:00 ROGELIO PETERSEN M.D. 09/13/16 0222: Assessment/Plan Assessment/Plan Additional Assessment/Plan [facility] attestation: I discussed the management with ANANT Cuellar and agree with above. Exam/Review of Systems Results Result Diagram: 09/12/16 0601 09/12/16 0601 MATT CUELLAR Sep 12, 2016 13:23 ROGELIO PETERSEN M.D. Sep 13, 2016 02:22
--- NOTE | 2016-09-12 17:20 | CONS ---
Date/Time of Note Date/Time of Note DATE: 09/12/16 TIME: 17:18 Consult Date/Type/Reason Admit Date/Time Sep 08, 2016 at 15:10 Initial Consult Date 09/08/16 Type of Consultation: Pulm Ordering Provider: SY VENTURA Subjective Did not tolerate trach collar trial today. Increased residuals noted; tube feeds held. Objective Vital Signs Date Time Temp Pulse Resp B/P Pulse Ox O2 Delivery O2 Flow Rate FiO2 09/12/16 17:00 81 18 133/92 97 CPAP 09/12/16 16:00 98.5 09/12/16 11:25 30 09/12/16 08:25 8.0 Intake and Output 09/11/16 09/11/16 09/12/16 15:00 23:00 07:00 Intake Total 260 ml 990 ml Output Total 920 ml 500 ml Balance -660 ml 490 ml HEENT: Neck supple; no JVD; no LAD; trach site clean CVS: RRR, S1 and S2 CHEST: Clear ABD: Soft, NT, + BS EXT: No c/c/e Results/Medications Result Diagram: 09/12/16 0601 09/12/16 0601 Results 24 hrs Laboratory Tests Test 09/12/16 06:01 Anion Gap 16 Basophils # 0.0 Basophils % 0.2 Blood Morphology Comment Blood Urea Nitrogen 12 Calcium Level 9.0 Carbon Dioxide Level 23 Chloride Level 101 Creatinine 0.25 L Eosinophils # 0.1 Eosinophils % 0.9 Glucose Level 143 Hematocrit 30.4 L Hemoglobin 10.3 L Lymphocytes # 1.0 Lymphocytes % 13.3 L Mean Corpuscular Hemoglobin 29.8 Mean Corpuscular Hemoglobin Concent 34.1 Mean Corpuscular Volume 87.6 Mean Platelet Volume 8.2 Monocytes # 0.4 Monocytes % 4.6 Neutrophils # 6.2 Neutrophils % 81.0 H Nucleated Red Blood Cells # 0.0 Nucleated Red Blood Cells % 0.0 Platelet Count 265 # Potassium Level 3.6 Red Blood Count 3.46 L Red Cell Distribution Width 15.0 H Sodium Level 136 White Blood Count 7.7 Medications Current Medications Hydromorphone HCl 0.5 mg 0.5 mg Q1H PRN IV PAIN Last administered on 09/12/16t 15:57; Admin Dose 0.5 MG; Start 09/08/16 at 17:00 Trimethoprim/ Sulfamethoxazole/ Dextrose (Bactrim/D5W) 250 ml @ 166 mls/hr Q8H IVPB Last administered on 09/12/16 11:56; Admin Dose 166 MLS/HR; Start at 20:00; Stop 09/14/16 at 23:59 Multivitamins (Thera-Plus) 5 ml DAILY GTB Last administered on 09/12/16 08:51 ; Admin Dose 5 ML; Start 09/11/16 at 09:00 Metoclopramide HCl (Reglan) 5 mg Q6H PRN IV NAUSEA Last administered on 16:51; Admin Dose 5 MG; Start 09/10/16 at 13:30 Lactobacillus Acidophilus/ Rhamnosus (Culturelle) 1 cap BID GTB Last administered on 09/12/16 08:51; Admin Dose 1 CAP; Start 09/10/16 at 21:00 Ondansetron HCl (Zofran Inj) 4 mg Q4 PRN IV NAUSEA AND/OR VOMITING Last administered on 09/12/16 16:38; Admin Dose 4 MG; Start 09/10/16 at 21:00 Assessment/Plan Additional Assessment/Plan IMP: 1. s/p mucus plugging event 2. chronic partial LLL atelectasis 3. chronic resp failure -- s/p trach 4. muscular dystrophy RECS: 1. Will retry trach collar in am 2. Also will try PM valve to allow phonation 3. Would benefit from mobilization to cardiac chair and sitting up at > 40 angle KAVIN DOMINGUEZ MD Sep 12, 2016 17:20
[2016-09-13] VITALS (32 sets, daily range): BP systolic 115–147; BP diastolic 75–112; PULSE 71–134; RESP 11–22
[2016-09-13] MEDS: ONDANSETRON 4 MG INJ IV PRN (00:31)
[2016-09-13] MEDS: HYDROmorphONE 1 MG/ML SYG IV PRN ×8 (01:49→23:54)
[2016-09-13] MEDS: SULFAMETHOXAZOLE IVPB SCH ×3 (03:54→20:47)
[2016-09-13] MEDS: TRIMETHOPRIM IVPB SCH ×3 (03:54→20:47)
[2016-09-13] MEDS: DEXTROSE IVPB SCH ×3 (03:54→20:47)
[2016-09-13] MEDS: IPRATROPIUM (HFA) 12.9 GM INHALER INH PRN ×2 (06:05→17:13)
[2016-09-13] MEDS: ALBUTEROL HFA 8 GM INHALER INH PRN ×2 (06:05→17:14)
[2016-09-13 07:05] LABS: BASOPHILS % 0.7 % (0.0-2.0); EOSINOPHILS # 0.1 10^3/ul (0.0-0.5); LYMPHOCYTES # 1.5 10^3/ul (0.8-2.9); LYMPHOCYTES % 25.6 % (15.0-51.0); MEAN CORPUSCULAR HEMOGLOBIN 30.2 pg (29.0-33.0); MEAN CORPUSCULAR HGB CONC 34.4 g/dl (32.0-37.0); MEAN CORPUSCULAR VOLUME 87.7 fl (82.0-101.0); MEAN PLATELET VOLUME 7.9 fl (7.4-10.4); MONOCYTE # 0.4 10^3/ul (0.3-0.9); MONOCYTES % 6.5 % (0.0-11.0); NEUTROPHIL # 3.9 10^3/ul (1.6-7.5); NEUTROPHILS % 65.2 % (39.0-77.0); PLATELET COUNT 270 10^3/UL (140-440); RED BLOOD COUNT 3.31 10^6/ul (4.70-6.10); UNCORRECTED WBC 5.9 10^3/ul (4.8-10.8); WHITE BLOOD COUNT 5.9 10^3/ul (4.8-10.8)
[2016-09-13 07:08] LABS: CONDITION 1; LH ANALYZER COMMENTS 1
[2016-09-13 07:11] LABS: POTASSIUM 3.8 mmol/L (3.5-5.1)
[2016-09-13 07:14] LABS: CREATININE 0.23 mg/dl (0.61-1.24)
[2016-09-13 07:15] LABS: CALCIUM 9.1 mg/dl (8.4-10.2)
[2016-09-13] MEDS: LACTOBACILLUS RHAMNOSUS CAP GTB SCH ×2 (08:46→20:37)
[2016-09-13] MEDS: MULTIVITAMINS 5 ML CUP GTB SCH (08:46)
--- NOTE | 2016-09-13 09:22 | CONS ---
Date/Time of Note Date/Time of Note DATE: 09/13/16 TIME: 09:18 Assessment/Plan Assessment/Plan Additional Assessment/Plan Ventilator settings; CPAP with pressure support of 1030% FiO2. Next Assessment and recommendations; 1. Patient with muscular dystrophy resulting in chronic respiratory failure. 2. Left lower lobe pneumonia/atelectasis. Status post bronchoscopy with persistent bronchial breath sounds as well as chest x-ray findings compatible with persistent atelectasis in the left lower lobe. Continue current treatment. Add chest PT to left lower lobe 4 times daily at least for 48 hours. Obtain follow-up chest x-ray in 48 hours. I did have a detailed discussion the patient's mother at bedside and answered all her questions Consultation Date/Type/Reason Admit Date/Time Sep 08, 2016 at 15:10 Initial Consult Date 09/08/16 Type of Consultation: Pulm Referring Provider: SY VENTURA 24 HR Interval Summary Free Text/Dictation Patient's condition remains stable. However patient did not handle T piece trial. Became short of breath had to be put back on CPAP mode. Has remained hemodynamically stable. Patient denies any shortness of breath but does complain of mild chest congestion. Also complains of occasional nausea without any overt vomiting. General examination; young male, on ventilator via tracheostomy. Currently in no distress. Awake and alert. Exam/Review of Systems Vital Signs Vitals Vital Signs Date Time Temp Pulse Resp B/P Pulse Ox O2 Delivery O2 Flow Rate FiO2 09/13/16 09:05 84 15 98 30 09/13/16 04:00 134/86 CPAP 09/13/16 00:00 99.0 09/12/16 08:25 8.0 Intake and Output 09/12/16 09/12/16 09/13/16 14:59 22:59 06:59 Intake Total 355 ml 392 ml 508 ml Output Total 425 ml 475 ml 575 ml Balance -70 ml -83 ml -67 ml Exam HEENT examination; supple neck, no JVD. No lymphadenopathy. Tracheostomy in place with clean insertion site. Chest examination; bronchial breath sounds left lower lobe otherwise clear. S1- S2 audible, no murmurs. Regular rhythm. Abdomen examination; soft, scaphoid. Nontender. G-tube in place. Bowel sounds audible. Extremity examination; no peripheral edema. 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 Results Result Diagram: 09/13/16 0546 09/13/16 0546 Results 24 hrs Laboratory Tests Test 09/13/16 05:46 Anion Gap 15 Basophils # 0.0 Basophils % 0.7 Blood Morphology Comment Blood Urea Nitrogen 11 Calcium Level 9.1 Carbon Dioxide Level 26 Chloride Level 98 Creatinine 0.23 L Eosinophils # 0.1 Eosinophils % 2.0 Glucose Level 101 # Hematocrit 29.0 L Hemoglobin 10.0 L Lymphocytes # 1.5 Lymphocytes % 25.6 Mean Corpuscular Hemoglobin 30.2 Mean Corpuscular Hemoglobin Concent 34.4 Mean Corpuscular Volume 87.7 Mean Platelet Volume 7.9 Monocytes # 0.4 Monocytes % 6.5 Neutrophils # 3.9 Neutrophils % 65.2 Nucleated Red Blood Cells # 0.0 Nucleated Red Blood Cells % 0.0 Platelet Count 270 Potassium Level 3.8 Red Blood Count 3.31 L Red Cell Distribution Width 15.0 H Sodium Level 135 White Blood Count 5.9 # Medications Medications Current Medications Hydromorphone HCl 0.5 mg 0.5 mg Q1H PRN IV PAIN Last administered on 09/13/16 06:09; Admin Dose 0.5 MG; Start 09/08/16 at 17:00 Trimethoprim/ Sulfamethoxazole/ Dextrose (Bactrim/D5W) 250 ml @ 166 mls/hr Q8H IVPB Last administered on 09/13/16 03:54; Admin Dose 166 MLS/HR; Start at 20:00; Stop 09/14/16 at 23:59 Multivitamins (Thera-Plus) 5 ml DAILY GTB Last administered on 09/13/16 08:46 ; Admin Dose 5 ML; Start 09/11/16 at 09:00 Metoclopramide HCl (Reglan) 5 mg Q6H PRN IV NAUSEA Last administered on 23:13; Admin Dose 5 MG; Start 09/10/16 at 13:30 Lactobacillus Acidophilus/ Rhamnosus (Culturelle) 1 cap BID GTB Last administered on 09/13/16 08:46; Admin Dose 1 CAP; Start 09/10/16 at 21:00 Ondansetron HCl (Zofran Inj) 4 mg Q4 PRN IV NAUSEA AND/OR VOMITING Last administered on 09/13/16t 00:31; Admin Dose 4 MG; Start 09/10/16 at 21:00 SY VENTURA Sep 13, 2016 09:22
--- NOTE | 2016-09-13 11:18 | PN ---
DATE: 09/13/2016 TIME OF EVALUATION: 9:00 a.m. SUBJECTIVE DATA: The patient is still having high residual with tube feedings. Hence the patient's tube feedings has been on hold. OBJECTIVE DATA: VITAL SIGNS: Temperature 99.0, pulse rate 84, respiratory rate 15, blood pressure 134/86, oxygen saturation 98% on 35% FIO2 via mechanical ventilator. GENERAL: This is thin, frail-looking male lying in bed in no apparent distress. HEENT: Head normocephalic and atraumatic. Eyes: Anicteric sclerae. Conjunctivae clear. ENT: Nasal septum is midline. Oral mucosa is dry. NECK: Tracheostomy in midline. RESPIRATORY: Bilaterally diminished breath sounds. A tracheostomy connected to mechanical ventilator. On CPAP mode. CARDIAC: Regular rate and rhythm. No obvious murmurs heard. ABDOMEN: Scaphoid. Left upper quadrant G-tube in place. GENITOURINARY: Deferred. EXTREMITIES: Flaccid and with minimal movement in bilateral upper extremities. Severe muscle wasting of bilateral upper and lower extremities. No edema. Peripheral pulses palpable. NEUROLOGIC: The patient is awake and alert. LABORATORY AND DIAGNOSTIC DATA: WBC 5.9, hemoglobin 10.0, hematocrit 29.0, platelet count 270. Sodium 137, potassium 3.8, chloride 90, carbon dioxide 26, anion gap 15, BUN 11, creatinine 0.2. Glucose 101, calcium 9.1. ASSESSMENT AND PLAN: 1. Left lower lobe pneumonia/atelectasis. Status post bronchoscopy with chest x-ray findings compatible with persistent left lower lobe atelectasis. Continue inhaled bronchodilators. Chest physical therapy as per pulmonary recommendations. Antibiotics as per infectious diseases. 2. Chronic respiratory failure. Status post tracheostomy. Continue inhaled bronchodilators. Continue on mechanical ventilation. 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 Continue mechanical ventilator management as per pulmonary recommendations. 4. Normocytic, normochromic anemia. We will monitor the H and H closely. Will obtain an iron panel to evaluate for any underlying iron deficiency. 5. Fluid, electrolytes and nutrition. Continue G-tube feedings as tolerated. 6. Deep venous thrombosis prophylaxis. Bilateral sequential compression devices. 7. Gastrointestinal prophylaxis. Histamine 2-receptor blockers. PLAN: 1. Add routine prokinetics because of high tube feeding residual. 2. Continue monitoring with telemetry status. 3. Obtain dietary consult. 4. Chest physiotherapy as per pulmonary recommendations. Case discussed with Dr. Joseph. Critical care time: 35 minutes. DAYLIN JOSEPH MD, AM/KAITLIN Conf#: [id number] DID#: [id number] MTDD
--- NOTE | 2016-09-13 11:30 | CONS ---
CHERYL SOTOMAYOR TROUBLE LOCATOR TEST DESK 09/13/16 1120: Date/Time of Note Date/Time of Note DATE: 09/13/16 TIME: 11:09 Assessment/Plan Assessment/Plan Chief Complaint/Hosp Course - SIRS vs early sepsis d/t probable PNA. Fever, tachycardia and mild leukocytosis at [facility] has resolved - Left lower lobe pneumonia/atelectasis/mucus plug. S/p bronchoscopy 09/09/16 - Stenotrophomonas in the airway, possible colonization - Chronic respiratory failure s/p trach 07/2016 - Recent Hx severe PNA and bronch at [facility] in July 2016. - Dysphagia s/p g tube 07/2016 - Duchenne musuclar dystrophy Recommendations: - Complete 7 day course of Bactrim (09/08/2016-). Plan through 09/15/2016 and this may be converted to PO when tolerating GT feeds better. 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 Petersen - Critical care time spent: 32 minutes Problems: Consultation Date/Type/Reason Admit Date/Time Sep 08, 2016 at 15:10 Initial Consult Date 09/08/16 Type of Consultation: Infectious Disease Referring Provider: SY VENTURA 24 HR Interval Summary Free Text/Dictation Placed back on T piece trial this AM. Currently denies SOB, CP, abd pain, n/v/d , dysuria but remains off tube feeds per pt's mother. Peptamen 1.5 being changed to Isosource per Dietary recommendations per DREW Harvey. Mother asking if current infection is the same as previous infection at outside hospital last month. Exam/Review of Systems Vital Signs Vitals Vital Signs Date Time Temp Pulse Resp B/P Pulse Ox O2 Delivery O2 Flow Rate FiO2 09/13/16 09:43 98 8.0 35 09/13/16 09:05 84 15 09/13/16 04:00 134/86 CPAP 09/13/16 00:00 99.0 Intake and Output 09/12/16 09/12/16 09/13/16 15:00 23:00 07:00 Intake Total 325 ml 392 ml 508 ml Output Total 650 ml 475 ml 350 ml Balance -325 ml -83 ml 158 ml Exam Constitutional: alert, frail, oriented Head: atraumatic, normocephalic ENMT: other (trach midline and intact with T piece) Neck: supple Respiratory: Diminished and few coarse BS LLL; no wheezing or use of accessory muscles Cardiovascular: regular rate and rhythm, normal S1, S2 Gastrointestinal: bowel sounds, non-tender, other (G tube clamped and intact), soft Extremities: normal pulses, other (atrophy noted and trace swelling on Right foot), No clubbing, No cyanosis Neurological: nl mental status, other (quadriplegic) Skin: nl turgor, No rash or lesions Results Respiratory Culture 09/08/16: RESPIRATORY CULTURE Final Organism 1 STENOTROPHOMONAS MALTOPHILIA QUANTITY 1+ Organism 2 NORMAL RESPIRATORY ADONIS QUANTITY 1+ Stenotrophomonas maltophilia susceptibilities are not performed. The drug of choice is Trimethoprim sulfamethoxazole. Aminoglycosides, Imipenem or Quinolones are not effective. [facility].I.[facility]. RX --------- --- LEVOFLOXACIN 4 I TRIMETHOPRIM/SULFAMETHOXAZOLE <=20 S Result Diagram: 09/13/1646 09/13/1646 Results 24 hrs Laboratory Tests Test 09/13/16 05:46 Anion Gap 15 Basophils # 0.0 Basophils % 0.7 Blood Morphology Comment Blood Urea Nitrogen 11 Calcium Level 9.1 Carbon Dioxide Level 26 Chloride Level 98 Creatinine 0.23 L Eosinophils # 0.1 Eosinophils % 2.0 Glucose Level 101 # Hematocrit 29.0 L Hemoglobin 10.0 L Lymphocytes # 1.5 Lymphocytes % 25.6 Mean Corpuscular Hemoglobin 30.2 Mean Corpuscular Hemoglobin Concent 34.4 Mean Corpuscular Volume 87.7 Mean Platelet Volume 7.9 Monocytes # 0.4 Monocytes % 6.5 Neutrophils # 3.9 Neutrophils % 65.2 Nucleated Red Blood Cells # 0.0 Nucleated Red Blood Cells % 0.0 Platelet Count 270 Potassium Level 3.8 Red Blood Count 3.31 L Red Cell Distribution Width 15.0 H Sodium Level 135 White Blood Count 5.9 # Medications Medications Current Medications Hydromorphone HCl 0.5 mg 0.5 mg Q1H PRN IV PAIN Last administered on 09/13/16 06:09; Admin Dose 0.5 MG; Start 09/08/16 at 17:00 Trimethoprim/ Sulfamethoxazole/ Dextrose (Bactrim/D5W) 250 ml @ 166 mls/hr Q8H IVPB Last administered on 09/13/16 03:54; Admin Dose 166 MLS/HR; Start at 20:00; Stop 09/14/16 at 23:59 Multivitamins (Thera-Plus) 5 ml DAILY GTB Last administered on 09/13/16 08:46 ; Admin Dose 5 ML; Start 09/11/16 at 09:00 Lactobacillus Acidophilus/ Rhamnosus (Culturelle) 1 cap BID GTB Last administered on 09/13/16 08:46; Admin Dose 1 CAP; Start 09/10/16 at 21:00 Ondansetron HCl (Zofran Inj) 4 mg Q4 PRN IV NAUSEA AND/OR VOMITING Last administered on 09/13/16 00:31; Admin Dose 4 MG; Start 09/10/16 at 21:00 Metoclopramide HCl (Reglan) 5 mg Q6 IV ; Start 09/13/16 at 12:00 Famotidine (Pepcid Iv) 20 mg BID IV ; Start 09/13/16 at 21:00 Procedures Procedures CXR 09/12/16: Question of infiltrate in the left lower lobe. ROGELIO PETERSEN M.D. 09/20/16 0852: Assessment/Plan Assessment/Plan Additional Assessment/Plan Trinity attestation: I discussed the management with ALETHA Sotomayor and agree with above. Exam/Review of Systems Results Result Diagram: 09/13/16 0546 09/13/16 0546 CHERYL SOTOMAYOR NP Sep 13, 2016 11:20 ROGELIO PETERSEN M.D. Sep 20, 2016 08:52
[2016-09-13] MEDS: METOCLOPRAMIDE 10 MG INJ IV SCH ×3 (11:59→23:44)
[2016-09-13 12:01] LABS: ALBUMIN 3.5 g/dl (3.3-4.9)
[2016-09-13 12:04] LABS: IRON 42 ug/dl (35-150)
[2016-09-13 12:11] LABS: PREALBUMIN 19.3 mg/dl (17.6-36.0)
[2016-09-13 12:14] LABS: TOTAL IRON BINDING CAPACITY 220 ug/dl (241-421)
[2016-09-13] MEDS: LORAZEPAM 2 MG INJ IV PRN (13:35)
[2016-09-13] MEDS: FAMOTIDINE 20 MG INJ IV SCH (20:37)
[2016-09-14] VITALS (35 sets, daily range): BP systolic 112–150; BP diastolic 73–99; PULSE 82–111; RESP 11–23
[2016-09-14] MEDS: HYDROmorphONE 1 MG/ML SYG IV PRN ×6 (02:05→22:30)
[2016-09-14] MEDS: TRIMETHOPRIM IVPB SCH ×3 (03:33→19:53)
[2016-09-14] MEDS: SULFAMETHOXAZOLE IVPB SCH ×3 (03:33→19:53)
[2016-09-14] MEDS: DEXTROSE IVPB SCH ×3 (03:33→19:53)
[2016-09-14 06:07] LABS: BASOPHILS % 0.5 % (0.0-2.0); EOSINOPHILS # 0.2 10^3/ul (0.0-0.5); EOSINOPHILS % 2.5 % (0.0-7.0); HEMATOCRIT 28.7 % (42.0-52.0); HEMOGLOBIN 9.9 g/dl (14.0-18.0); LYMPHOCYTES # 1.7 10^3/ul (0.8-2.9); LYMPHOCYTES % 22.2 % (15.0-51.0); MEAN CORPUSCULAR HEMOGLOBIN 29.8 pg (29.0-33.0); MEAN CORPUSCULAR HGB CONC 34.6 g/dl (32.0-37.0); MEAN CORPUSCULAR VOLUME 86.2 fl (82.0-101.0); MONOCYTE # 0.5 10^3/ul (0.3-0.9); MONOCYTES % 7.2 % (0.0-11.0); NEUTROPHILS % 67.6 % (39.0-77.0); PLATELET COUNT 278 10^3/UL (140-440); RED BLOOD COUNT 3.33 10^6/ul (4.70-6.10); RED CELL DISTRIBUTION WIDTH 15.1 % (11.5-14.5); UNCORRECTED WBC 7.5 10^3/ul (4.8-10.8); WHITE BLOOD COUNT 7.5 10^3/ul (4.8-10.8)
[2016-09-14] MEDS: METOCLOPRAMIDE 10 MG INJ IV SCH ×4 (06:07→23:41)
[2016-09-14 06:18] LABS: CREATININE 0.22 mg/dl (0.61-1.24)
[2016-09-14 06:19] LABS: CALCIUM 9.1 mg/dl (8.4-10.2); CONDITION 1; LH ANALYZER COMMENTS 1; MAGNESIUM 1.9 mg/dl (1.7-2.5); PHOSPHORUS 4.4 mg/dl (2.5-4.9)
[2016-09-14] MEDS: ONDANSETRON 4 MG INJ IV PRN (08:03)
--- NOTE | 2016-09-14 08:44 | PN ---
Date/Time of Note Date/Time of Note DATE: 09/14/16 TIME: 08:43 Assessment/Plan VTE Prophylaxis VTE Prophylaxis Intervention: SCD's Lines/Catheters IV Catheter Type (from [facility]): Peripheral IV Urinary Cath still in place: No Assessment/Plan Chief Complaint/Hosp Course 1. Left lower lobe pneumonia/atelectasis. Status post bronchoscopy with chest x-ray findings compatible with persistent left lower lobe atelectasis. Continue inhaled bronchodilators. Chest physical therapy as per pulmonary recommendations. Antibiotics as per infectious diseases. 2. Chronic respiratory failure. Status post tracheostomy. Continue inhaled bronchodilators. Continue mechanical ventilation. Weaning from mechanical ventilator as per pulmonary. 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 Continue mechanical ventilator management as per pulmonary recommendations. 4. Normocytic normochromic anemia. Will monitor the H and H closely. Iron panel showing iron deficiency. 5. Fluid, electrolytes and nutrition. Continue G-tube feedings as tolerated. 6. Deep venous thrombosis prophylaxis. Bilateral sequential compression devices. 7. Gastrointestinal prophylaxis. Histamine 2-receptor blockers. 8. PLAN: Continue routine prokinetics. Start iron supplements. Ventilator weaning as per pulmonary. The patient's family wants to take the patient home upon discharge. Continue chest physiotherapy. Increase tube feedings to achieve the goal rate. Case discussed with Dr. Rivera. Critical care time 35 minutes. Problems: Subjective 24 Hr Interval Summary Free Text/Dictation Tolerating tube feedings well. Exam/Review of Systems Vital Signs Vitals Vital Signs Date Time Temp Pulse Resp B/P Pulse Ox O2 Delivery O2 Flow Rate FiO2 09/14/16 06:00 87 13 118/85 99 CPAP Mechanical Ventilator 09/14/16 05:45 30 09/14/16 04:00 98.6 09/13/16 09:43 8.0 Intake and Output 09/13/16 09/13/16 09/14/16 15:00 23:00 07:00 Intake Total 310 ml 463 ml 415 ml Output Total 400 ml 625 ml 375 ml Balance -90 ml -162 ml 40 ml Exam GENERAL: This is thin, frail-looking male lying in bed in no apparent distress. HEENT: Head normocephalic and atraumatic. Eyes: Anicteric sclerae. Conjunctivae clear. ENT: Nasal septum is midline. Oral mucosa is dry. NECK: Tracheostomy in midline. RESPIRATORY: Bilaterally diminished breath sounds. A tracheostomy connected to mechanical ventilator. On CPAP mode. CARDIAC: Regular rate and rhythm. No obvious murmurs heard. ABDOMEN: Scaphoid. Left upper quadrant G-tube in place. GENITOURINARY: Deferred. EXTREMITIES: Flaccid and with minimal movement in bilateral upper extremities. Severe muscle wasting of bilateral upper and lower extremities. No edema. Peripheral pulses palpable. NEUROLOGIC: The patient is awake and alert. Results Result Diagram: 09/14/16 0537 09/14/16 0537 Results 24 hrs Laboratory Tests Test 09/14/16 05:37 Anion Gap 15 Basophils # 0.0 Basophils % 0.5 Blood Morphology Comment Blood Urea Nitrogen 10 Calcium Level 9.1 Carbon Dioxide Level 28 Chloride Level 96 L Creatinine 0.22 L Eosinophils # 0.2 Eosinophils % 2.5 Glucose Level 93 Hematocrit 28.7 L Hemoglobin 9.9 L Lymphocytes # 1.7 Lymphocytes % 22.2 Magnesium Level 1.9 Mean Corpuscular Hemoglobin 29.8 Mean Corpuscular Hemoglobin Concent 34.6 Mean Corpuscular Volume 86.2 Mean Platelet Volume 8.0 Monocytes # 0.5 Monocytes % 7.2 Neutrophils # 5.0 Neutrophils % 67.6 Nucleated Red Blood Cells # 0.0 Nucleated Red Blood Cells % 0.0 Phosphorus Level 4.4 Platelet Count 278 Potassium Level 4.0 Red Blood Count 3.33 L Red Cell Distribution Width 15.1 H Sodium Level 135 White Blood Count 7.5 # Medications Medications Current Medications Hydromorphone HCl 0.5 mg 0.5 mg Q1H PRN IV PAIN Last administered on 09/14/16 07:53; Admin Dose 0.5 MG; Start 09/08/16 at 17:00 Trimethoprim/ Sulfamethoxazole/ Dextrose (Bactrim/D5W) 250 ml @ 166 mls/hr Q8H IVPB Last administered on 09/14/16 03:33; Admin Dose 166 MLS/HR; Start at 20:00; Stop 09/14/16 at 23:59 Multivitamins (Thera-Plus) 5 ml DAILY GTB Last administered on 09/13/16 08:46 ; Admin Dose 5 ML; Start 09/11/16 at 09:00 Lactobacillus Acidophilus/ Rhamnosus (Culturelle) 1 cap BID GTB Last administered on 09/13/16 20:37; Admin Dose 1 CAP; Start 09/10/16 at 21:00 Ondansetron HCl (Zofran Inj) 4 mg Q4 PRN IV NAUSEA AND/OR VOMITING Last administered on 09/14/16 08:03; Admin Dose 4 MG; Start 09/10/16 at 21:00 Metoclopramide HCl (Reglan) 5 mg Q6 IV Last administered on 09/14/16 06:07; Admin Dose 5 MG; Start 09/13/16 at 12:00 Famotidine (Pepcid Iv) 20 mg BID IV Last administered on 09/13/16 20:37; Admin Dose 20 MG; Start 09/13/16 at 21:00 Lorazepam (Ativan) 0.5 mg Q8H PRN IV Anxiety Last administered on 09/13/16 13: 35; Admin Dose 0.5 MG; Start 09/13/16 at 13:30 DAYLIN SHAVER NP Sep 14, 2016 08:44
--- NOTE | 2016-09-14 09:27 | CONS ---
Date/Time of Note Date/Time of Note DATE: 09/14/16 TIME: 09:25 Assessment/Plan Assessment/Plan Additional Assessment/Plan Ventilator settings; CPAP with pressure support of 10, 30% FiO2. Assessment and recommendations; 1. Patient admitted with left lower lobe pneumonia/atelectasis, status post bronchoscopy with clearing of mucous plugging involving the lateral segment of the left lower lobe. Examination has improved markedly. 2. Muscular dystrophy. 3. Chronic respiratory failure, patient unable to handle T piece trials. Continue current ventilator settings. Patient can be transferred to telemetry unit. Requiring long-term ventilator support. I did have a detailed discussion the patient's mother at bedside and answered all her questions. Consultation Date/Type/Reason Admit Date/Time Sep 08, 2016 at 15:10 Initial Consult Date 09/08/16 Type of Consultation: Pulmonary/critical care Referring Provider: SY VENTURA 24 HR Interval Summary Free Text/Dictation Patient condition remains stable. Is completely awake and alert. Denies any shortness of breath. Patient was again given T piece trial yesterday which she could not handle well for more than 1 hour and had to be switched back to CPAP mode. General examination; young, awake alert currently in no distress. On ventilator via tracheostomy. Exam/Review of Systems Vital Signs Vitals Vital Signs Date Time Temp Pulse Resp B/P Pulse Ox O2 Delivery O2 Flow Rate FiO2 09/14/16 06:00 87 13 118/85 99 CPAP Mechanical Ventilator 09/14/16 05:45 30 09/14/16 04:00 98.6 09/13/16 09:43 8.0 Intake and Output 09/13/16 09/13/16 09/14/16 15:00 23:00 07:00 Intake Total 310 ml 463 ml 415 ml Output Total 400 ml 625 ml 375 ml Balance -90 ml -162 ml 40 ml Exam HEENT examination; supple neck, no JVD. No lymphadenopathy. Tracheostomy in place. Insertion site is clean. Pharynx is clear. Chest examination; clear to auscultation bilaterally. S1-S2 audible, no murmurs. Regular rhythm. Abdomen examination; soft, nontender. G-tube in place. Bowel sounds audible. Extremity examination; no peripheral edema. SUPPORT MANAGER examination; is stable, patient able to move fingers of both hands with some extent bilaterally. Results Result Diagram: 09/14/16 0537 09/14/16 0537 Results 24 hrs Laboratory Tests Test 09/14/16 05:37 Anion Gap 15 Basophils # 0.0 Basophils % 0.5 Blood Morphology Comment Blood Urea Nitrogen 10 Calcium Level 9.1 Carbon Dioxide Level 28 Chloride Level 96 L Creatinine 0.22 L Eosinophils # 0.2 Eosinophils % 2.5 Glucose Level 93 Hematocrit 28.7 L Hemoglobin 9.9 L Lymphocytes # 1.7 Lymphocytes % 22.2 Magnesium Level 1.9 Mean Corpuscular Hemoglobin 29.8 Mean Corpuscular Hemoglobin Concent 34.6 Mean Corpuscular Volume 86.2 Mean Platelet Volume 8.0 Monocytes # 0.5 Monocytes % 7.2 Neutrophils # 5.0 Neutrophils % 67.6 Nucleated Red Blood Cells # 0.0 Nucleated Red Blood Cells % 0.0 Phosphorus Level 4.4 Platelet Count 278 Potassium Level 4.0 Red Blood Count 3.33 L Red Cell Distribution Width 15.1 H Sodium Level 135 White Blood Count 7.5 # Medications Medications Current Medications Trimethoprim/ Sulfamethoxazole/ Dextrose (Bactrim/D5W) 250 ml @ 166 mls/hr Q8H IVPB Last administered on 09/14/16 03:33; Admin Dose 166 MLS/HR; Start at 20:00; Stop 09/14/16 at 23:59 Multivitamins (Thera-Plus) 5 ml DAILY GTB Last administered on 09/13/16 08:46 ; Admin Dose 5 ML; Start 09/11/16 at 09:00 Lactobacillus Acidophilus/ Rhamnosus (Culturelle) 1 cap BID GTB Last administered on 09/13/16 20:37; Admin Dose 1 CAP; Start 09/10/16 at 21:00 Ondansetron HCl (Zofran Inj) 4 mg Q4 PRN IV NAUSEA AND/OR VOMITING Last administered on 09/14/16 08:03; Admin Dose 4 MG; Start 09/10/16 at 21:00 Metoclopramide HCl (Reglan) 5 mg Q6 IV Last administered on 09/14/16 06:07; Admin Dose 5 MG; Start 09/13/16 at 12:00 Famotidine (Pepcid Iv) 20 mg BID IV Last administered on 09/13/16 20:37; Admin Dose 20 MG; Start 09/13/16 at 21:00 Lorazepam (Ativan) 0.5 mg Q8H PRN IV Anxiety Last administered on 09/13/16t 13: 35; Admin Dose 0.5 MG; Start 09/13/16 at 13:30 Hydromorphone HCl (Dilaudid) 1 mg Q4H PRN IV PAIN; Start 09/14/16 at 09:00 Ferrous Sulfate (Feosol Liquid Cup) 300 mg DAILY NGT ; Start 09/14/16 at 09:00 SY VENTURA Sep 14, 2016 09:27
[2016-09-14] MEDS: FERROUS SULFATE 60 MG/ML 5ML CUP NGT SCH (09:32)
[2016-09-14] MEDS: LACTOBACILLUS RHAMNOSUS CAP GTB SCH ×2 (09:32→20:14)
[2016-09-14] MEDS: FAMOTIDINE 20 MG INJ IV SCH ×2 (09:32→20:14)
[2016-09-14] MEDS: MULTIVITAMINS 5 ML CUP GTB SCH (09:32)
[2016-09-14] MEDS: ALBUTEROL HFA 8 GM INHALER INH PRN ×2 (10:28→21:39)
[2016-09-14] MEDS: IPRATROPIUM (HFA) 12.9 GM INHALER INH PRN ×2 (10:28→21:39)
--- NOTE | 2016-09-14 10:52 | CONS ---
Date/Time of Note Date/Time of Note DATE: 09/14/16 TIME: 10:50 Assessment/Plan Assessment/Plan Chief Complaint/Hosp Course - SIRS vs early sepsis d/t probable PNA. Fever, tachycardia and mild leukocytosis at [facility] has resolved - Left lower lobe pneumonia/atelectasis/mucus plug. S/p bronchoscopy 09/09/16 - Stenotrophomonas in the airway, possible colonization - Chronic respiratory failure s/p trach 07/2016 - Recent Hx severe PNA and bronch at [facility] in July 2016. - Dysphagia s/p g tube 07/2016 - Duchenne musuclar dystrophy Recommendations: - Complete 7 day course of Bactrim (09/08/2016-). Plan through 09/15/2016 and this may be converted to PO when tolerating GT feeds better. - Continue probiotic - Management d/w Pt and pt's mother and LIDAR ANALYST - Above d/w Dr. Guevara - Critical care time spent: 30 minutes Problems: Consultation Date/Type/Reason Admit Date/Time Sep 08, 2016 at 15:10 Initial Consult Date 09/08/16 Type of Consultation: Infectious Disease Referring Provider: SY VENTURA 24 HR Interval Summary Free Text/Dictation TF changed to Isosource yesterday and pt tolerating TF at 30cc/hr with goal rate of 50cc/hr; had some nausea with suctioning but no vomiting per DREW Harvey. Pt also on reglan. Tolerated T-peice trial for a little over an hour and had to be switched back to CPAP mode. Currently denies any pain, SOB, n/v/d, dysuria. Exam/Review of Systems Vital Signs Vitals Vital Signs Date Time Temp Pulse Resp B/P Pulse Ox O2 Delivery O2 Flow Rate FiO2 09/14/16 08:00 30 09/14/16 06:00 87 13 118/85 99 CPAP Mechanical Ventilator 09/14/16 04:00 98.6 09/13/16 09:43 8.0 Intake and Output 09/13/16 09/13/16 09/14/16 15:00 23:00 07:00 Intake Total 310 ml 463 ml 415 ml Output Total 400 ml 625 ml 375 ml Balance -90 ml -162 ml 40 ml Exam Constitutional: alert, frail, oriented Head: atraumatic, normocephalic ENMT: other (trach midline and intact on ventilator support; CPAP mode) Neck: supple Respiratory: Essentially clear to auscultation; no wheezing or use of accessory muscles. Cardiovascular: regular rate and rhythm, normal S1, S2 Gastrointestinal: bowel sounds, non-tender, other (G tube clamped and intact), soft Extremities: normal pulses, other (atrophy noted and trace swelling on Right foot), No clubbing, No cyanosis Neurological: nl mental status, other (quadriplegic) Skin: nl turgor, No rash or lesions Results Result Diagram: 09/14/1653609/14/16536 Results 24 hrs Laboratory Tests Test 09/14/16 05:37 Anion Gap 15 Basophils # 0.0 Basophils % 0.5 Blood Morphology Comment Blood Urea Nitrogen 10 Calcium Level 9.1 Carbon Dioxide Level 28 Chloride Level 96 L Creatinine 0.22 L Eosinophils # 0.2 Eosinophils % 2.5 Glucose Level 93 Hematocrit 28.7 L Hemoglobin 9.9 L Lymphocytes # 1.7 Lymphocytes % 22.2 Magnesium Level 1.9 Mean Corpuscular Hemoglobin 29.8 Mean Corpuscular Hemoglobin Concent 34.6 Mean Corpuscular Volume 86.2 Mean Platelet Volume 8.0 Monocytes # 0.5 Monocytes % 7.2 Neutrophils # 5.0 Neutrophils % 67.6 Nucleated Red Blood Cells # 0.0 Nucleated Red Blood Cells % 0.0 Phosphorus Level 4.4 Platelet Count 278 Potassium Level 4.0 Red Blood Count 3.33 L Red Cell Distribution Width 15.1 H Sodium Level 135 White Blood Count 7.5 # Medications Medications Current Medications Trimethoprim/ Sulfamethoxazole/ Dextrose (Bactrim/D5W) 250 ml @ 166 mls/hr Q8H IVPB Last administered on 09/14/16 03:33; Admin Dose 166 MLS/HR; Start at 20:00; Stop 09/14/16 at 23:59 Multivitamins (Thera-Plus) 5 ml DAILY GTB Last administered on 09/14/16 09:32 ; Admin Dose 5 ML; Start 09/11/16 at 09:00 Lactobacillus Acidophilus/ Rhamnosus (Culturelle) 1 cap BID GTB Last administered on 09/14/16 09:32; Admin Dose 1 CAP; Start 09/10/16 at 21:00 Ondansetron HCl (Zofran Inj) 4 mg Q4 PRN IV NAUSEA AND/OR VOMITING Last administered on 09/14/16 08:03; Admin Dose 4 MG; Start 09/10/16 at 21:00 Metoclopramide HCl (Reglan) 5 mg Q6 IV Last administered on 09/14/16 06:07; Admin Dose 5 MG; Start 09/13/16 at 12:00 Famotidine (Pepcid Iv) 20 mg BID IV Last administered on 09/14/16 09:32; Admin Dose 20 MG; Start 09/13/16 at 21:00 Lorazepam (Ativan) 0.5 mg Q8H PRN IV Anxiety Last administered on 09/13/16 13: 35; Admin Dose 0.5 MG; Start 09/13/16 at 13:30 Hydromorphone HCl (Dilaudid) 1 mg Q4H PRN IV PAIN; Start 09/14/16 at 09:00 Ferrous Sulfate (Feosol Liquid Cup) 300 mg DAILY NGT Last administered on 09:32; Admin Dose 300 MG; Start 09/14/16 at 09:00 Procedures Procedures CXR 09/12/16: 1. Question of infiltrate in the left lower lobe. CHERYL SOTOMAYOR NP Sep 14, 2016 10:52
[2016-09-15] VITALS (36 sets, daily range): BP systolic 109–136; BP diastolic 70–102; PULSE 82–117; RESP 14–21
[2016-09-15] MEDS: LORAZEPAM 2 MG INJ IV PRN ×2 (01:00→23:10)
[2016-09-15] MEDS: HYDROmorphONE 1 MG/ML SYG IV PRN ×5 (02:03→20:39)
[2016-09-15] MEDS: SULFAMETHOXAZOLE IVPB SCH ×2 (04:18→14:20)
[2016-09-15] MEDS: TRIMETHOPRIM IVPB SCH ×2 (04:18→14:20)
[2016-09-15] MEDS: DEXTROSE IVPB SCH ×2 (04:18→14:20)
[2016-09-15 06:16] LABS: POTASSIUM 4.6 mmol/L (3.5-5.1)
[2016-09-15 06:18] LABS: CREATININE 0.22 mg/dl (0.61-1.24); MAGNESIUM 1.9 mg/dl (1.7-2.5); PHOSPHORUS 4.1 mg/dl (2.5-4.9)
[2016-09-15 06:19] LABS: CALCIUM 9.2 mg/dl (8.4-10.2)
[2016-09-15] MEDS: METOCLOPRAMIDE 10 MG INJ IV SCH ×3 (06:31→17:51)
[2016-09-15] MEDS: FERROUS SULFATE 60 MG/ML 5ML CUP NGT SCH (08:25)
[2016-09-15] MEDS: MULTIVITAMINS 5 ML CUP GTB SCH (08:25)
[2016-09-15] MEDS: LACTOBACILLUS RHAMNOSUS CAP GTB SCH ×2 (08:26→20:39)
[2016-09-15] MEDS: FAMOTIDINE 20 MG INJ IV SCH ×2 (08:26→20:39)
--- NOTE | 2016-09-15 08:42 | PN ---
Date/Time of Note Date/Time of Note DATE: 09/15/16 TIME: 08:40 Assessment/Plan VTE Prophylaxis VTE Prophylaxis Intervention: SCD's Lines/Catheters IV Catheter Type (from [facility]): Peripheral IV Urinary Cath still in place: No Assessment/Plan Chief Complaint/Hosp Course 1. Left lower lobe pneumonia/atelectasis. Status post bronchoscopy with chest x-ray findings compatible with persistent left lower lobe atelectasis. Continue inhaled bronchodilators. Chest physical therapy as per pulmonary recommendations. Antibiotics as per infectious diseases. 2. Chronic respiratory failure. Status post tracheostomy. Continue inhaled bronchodilators. Continue mechanical ventilation. Weaning from mechanical ventilator as per pulmonary. 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 Continue mechanical ventilator management as per pulmonary recommendations. 4. Normocytic normochromic anemia. Will monitor the H and H closely. Iron panel showing iron deficiency. 5. Fluid, electrolytes and nutrition. Continue G-tube feedings as tolerated. 6. Deep venous thrombosis prophylaxis. Bilateral sequential compression devices. 7. Gastrointestinal prophylaxis. Histamine 2-receptor blockers. 8. PLAN: Continue routine prokinetics. The patient's family wanted to take the patient to the hospital closer to the patient's residence. Patient's family trying to find an accepting physician. Case management is working with the patient's family. The patient is medically stable to be transferred to another hospital. Case discussed with Dr. Rivera. Critical care time 35 minutes. Problems: Subjective 24 Hr Interval Summary Free Text/Dictation No changes in status. Tolerating tube feedings. Exam/Review of Systems Vital Signs Vitals Vital Signs Date Time Temp Pulse Resp B/P Pulse Ox O2 Delivery O2 Flow Rate FiO2 09/15/16 06:00 92 17 132/85 99 CPAP 09/15/16 05:35 30 09/15/16 04:00 98.3 09/13/16 09:43 8.0 Intake and Output 09/14/16 09/14/16 09/15/16 15:00 23:00 07:00 Intake Total 560 ml 580 ml 430 ml Output Total 475 ml 225 ml 575 ml Balance 85 ml 355 ml -145 ml Exam GENERAL: This is thin, frail-looking male lying in bed in no apparent distress. HEENT: Head normocephalic and atraumatic. Eyes: Anicteric sclerae. Conjunctivae clear. ENT: Nasal septum is midline. Oral mucosa is dry. NECK: Tracheostomy in midline. RESPIRATORY: Bilaterally diminished breath sounds. A tracheostomy connected to mechanical ventilator. On CPAP mode. CARDIAC: Regular rate and rhythm. No obvious murmurs heard. ABDOMEN: Scaphoid. Left upper quadrant G-tube in place. GENITOURINARY: Deferred. EXTREMITIES: Flaccid and with minimal movement in bilateral upper extremities. Severe muscle wasting of bilateral upper and lower extremities. No edema. Peripheral pulses palpable. NEUROLOGIC: The patient is awake and alert. Results Result Diagram: 09/14/16 0537 09/15/16 0525 Results 24 hrs Laboratory Tests Test 09/15/16 05:25 Anion Gap 17 H Blood Urea Nitrogen 13 Calcium Level 9.2 Carbon Dioxide Level 27 Chloride Level 95 L Creatinine 0.22 L Glucose Level 126 Magnesium Level 1.9 Phosphorus Level 4.1 Potassium Level 4.6 Sodium Level 134 L Medications Medications Current Medications Trimethoprim/ Sulfamethoxazole/ Dextrose (Bactrim/D5W) 250 ml @ 166 mls/hr Q8H IVPB Last administered on 09/15/16 04:18; Admin Dose 166 MLS/HR; Start at 20:00; Stop 09/15/16 at 14:00 Multivitamins (Thera-Plus) 5 ml DAILY GTB Last administered on 09/15/16 08:25 ; Admin Dose 5 ML; Start 09/11/16 at 09:00 Lactobacillus Acidophilus/ Rhamnosus (Culturelle) 1 cap BID GTB Last administered on 09/15/16 08:26; Admin Dose 1 CAP; Start 09/10/16 at 21:00 Ondansetron HCl (Zofran Inj) 4 mg Q4 PRN IV NAUSEA AND/OR VOMITING Last administered on 09/14/16 08:03; Admin Dose 4 MG; Start 09/10/16 at 21:00 Metoclopramide HCl (Reglan) 5 mg Q6 IV Last administered on 09/15/16 06:31; Admin Dose 5 MG; Start 09/13/16 at 12:00 Famotidine (Pepcid Iv) 20 mg BID IV Last administered on 09/15/16 08:26; Admin Dose 20 MG; Start 09/13/16 at 21:00 Lorazepam (Ativan) 0.5 mg Q8H PRN IV Anxiety Last administered on 09/15/16 01: 00; Admin Dose 0.5 MG; Start 09/13/16 at 13:30 Hydromorphone HCl (Dilaudid) 1 mg Q4H PRN IV PAIN Last administered on 06:32; Admin Dose 1 MG; Start 09/14/16 at 09:00 Ferrous Sulfate (Feosol Liquid Cup) 300 mg DAILY NGT Last administered on 08:25; Admin Dose 300 MG; Start 09/14/16 at 09:00 DAYLIN SHAVER NP Sep 15, 2016 08:42
--- NOTE | 2016-09-15 08:48 | CONS ---
Date/Time of Note Date/Time of Note DATE: 09/15/16 TIME: 08:40 Assessment/Plan Assessment/Plan Additional Assessment/Plan Ventilator settings; patient on CPAP with pressure support of 6, 20% FiO2. Next Assessment and recommendations; next 1. Patient with chronic respiratory failure due to muscular dystrophy. Next 2. Left lower lobe pneumonia/atelectasis with marked clinical improvement. Status post bronchoscopy. Next We will continue current treatment. Patient awaiting discharge home, however the family will need to be trained on mechanical ventilator prior to discharge. Consultation Date/Type/Reason Admit Date/Time Sep 08, 2016 at 15:10 Initial Consult Date 09/08/16 Type of Consultation: Pulmonary/critical care Referring Provider: SY VENTURA 24 HR Interval Summary Free Text/Dictation Patient condition stable. Remains awake alert. Still requiring ventilator support and on CPAP mode with pressure support of 6. Has any chest pain, chest congestion. General examination; young male currently in no distress. On ventilator via tracheostomy. Exam/Review of Systems Vital Signs Vitals Vital Signs Date Time Temp Pulse Resp B/P Pulse Ox O2 Delivery O2 Flow Rate FiO2 09/15/16 06:00 92 17 132/85 99 CPAP 09/15/16 05:35 30 09/15/16 04:00 98.3 09/13/16 09:43 8.0 Intake and Output 09/14/16 09/14/16 09/15/16 15:00 23:00 07:00 Intake Total 560 ml 580 ml 430 ml Output Total 475 ml 225 ml 575 ml Balance 85 ml 355 ml -145 ml Exam H EENT examination; supple neck, no JVD. No lymphadenopathy. Tracheostomy in place with clean insertion site. Chest examination; clear to auscultation bilaterally. S1-S2 audible no murmurs regular rhythm. Abdomen examination; soft, G-tube in place. Bowel sounds audible. Extremity examination; no peripheral edema. FACILITY ATTENDANT examination; patient able to move fingers in both hands to some extent. Results Result Diagram: 09/14/16 0537 09/15/16 0525 Results 24 hrs Laboratory Tests Test 09/15/16 05:25 Anion Gap 17 H Blood Urea Nitrogen 13 Calcium Level 9.2 Carbon Dioxide Level 27 Chloride Level 95 L Creatinine 0.22 L Glucose Level 126 Magnesium Level 1.9 Phosphorus Level 4.1 Potassium Level 4.6 Sodium Level 134 L Medications Medications Current Medications Trimethoprim/ Sulfamethoxazole/ Dextrose (Bactrim/D5W) 250 ml @ 166 mls/hr Q8H IVPB Last administered on 09/15/16 04:18; Admin Dose 166 MLS/HR; Start at 20:00; Stop 09/15/16 at 14:00 Multivitamins (Thera-Plus) 5 ml DAILY GTB Last administered on 09/15/16 08:25 ; Admin Dose 5 ML; Start 09/11/16 at 09:00 Lactobacillus Acidophilus/ Rhamnosus (Culturelle) 1 cap BID GTB Last administered on 09/15/16 08:26; Admin Dose 1 CAP; Start 09/10/16 at 21:00 Ondansetron HCl (Zofran Inj) 4 mg Q4 PRN IV NAUSEA AND/OR VOMITING Last administered on 09/14/16 08:03; Admin Dose 4 MG; Start 09/10/16 at 21:00 Metoclopramide HCl (Reglan) 5 mg Q6 IV Last administered on 09/15/16 06:31; Admin Dose 5 MG; Start 09/13/16 at 12:00 Famotidine (Pepcid Iv) 20 mg BID IV Last administered on 09/15/16 08:26; Admin Dose 20 MG; Start 09/13/16 at 21:00 Lorazepam (Ativan) 0.5 mg Q8H PRN IV Anxiety Last administered on 09/15/16 01: 00; Admin Dose 0.5 MG; Start 09/13/16 at 13:30 Hydromorphone HCl (Dilaudid) 1 mg Q4H PRN IV PAIN Last administered on 06:32; Admin Dose 1 MG; Start 09/14/16 at 09:00 Ferrous Sulfate (Feosol Liquid Cup) 300 mg DAILY NGT Last administered on 08:25; Admin Dose 300 MG; Start 09/14/16 at 09:00 SY VENTURA Sep 15, 2016 08:48
[2016-09-15 09:51] LABS: BASOPHILS % 0.5 % (0.0-2.0); EOSINOPHILS # 0.3 10^3/ul (0.0-0.5); EOSINOPHILS % 4.2 % (0.0-7.0); HEMATOCRIT 28.1 % (42.0-52.0); HEMOGLOBIN 9.6 g/dl (14.0-18.0); LYMPHOCYTES # 2.1 10^3/ul (0.8-2.9); LYMPHOCYTES % 25.7 % (15.0-51.0); MEAN CORPUSCULAR HEMOGLOBIN 29.9 pg (29.0-33.0); MEAN CORPUSCULAR HGB CONC 34.2 g/dl (32.0-37.0); MEAN CORPUSCULAR VOLUME 87.2 fl (82.0-101.0); MEAN PLATELET VOLUME 8.9 fl (7.4-10.4); MONOCYTE # 0.5 10^3/ul (0.3-0.9); MONOCYTES % 6.7 % (0.0-11.0); NEUTROPHIL # 5.1 10^3/ul (1.6-7.5); NEUTROPHILS % 62.9 % (39.0-77.0); PLATELET COUNT 255 10^3/UL (140-440); RED BLOOD COUNT 3.22 10^6/ul (4.70-6.10); RED CELL DISTRIBUTION WIDTH 15.1 % (11.5-14.5); UNCORRECTED WBC 8.1 10^3/ul (4.8-10.8); WHITE BLOOD COUNT 8.1 10^3/ul (4.8-10.8)
[2016-09-15 09:54] LABS: CONDITION 1; SUSPECT 1
[2016-09-15 09:55] LABS: LH ANALYZER COMMENTS 1
--- NOTE | 2016-09-15 12:29 | CONS ---
Date/Time of Note Date/Time of Note DATE: 09/15/16 TIME: 12:28 Assessment/Plan Assessment/Plan Chief Complaint/Hosp Course - SIRS vs early sepsis d/t probable PNA. Fever, tachycardia and mild leukocytosis at [facility] has resolved - Left lower lobe pneumonia/atelectasis/mucus plug. S/p bronchoscopy 09/09/16 - Stenotrophomonas in the airway, possible colonization - Chronic respiratory failure s/p trach 07/2016 - Recent Hx severe PNA and bronch at [facility] in July 2016. - Dysphagia s/p g tube 07/2016 - Duchenne musuclar dystrophy Recommendations: - Complete 7 day course of Bactrim (09/08/2016-). Plan through 09/15/2016 and this may be converted to PO when tolerating GT feeds better. - Continue probiotic Problems: Consultation Date/Type/Reason Admit Date/Time Sep 08, 2016 at 15:10 Initial Consult Date 09/08/16 Type of Consultation: id Referring Provider: SY VENTURA 24 HR Interval Summary Free Text/Dictation d/w nursing; Stacie. d/w family at bedside. answered all questions Exam/Review of Systems Vital Signs Vitals Vital Signs Date Time Temp Pulse Resp B/P Pulse Ox O2 Delivery O2 Flow Rate FiO2 09/15/16 11:05 98 17 98 30 09/15/16 11:00 129/78 CPAP 09/15/16 08:00 98.1 09/13/16 09:43 8.0 Intake and Output 09/14/16 09/14/16 09/15/16 15:00 23:00 07:00 Intake Total 560 ml 580 ml 430 ml Output Total 475 ml 225 ml 575 ml Balance 85 ml 355 ml -145 ml Exam Constitutional: alert, oriented Psych: nl mood/affect, no complaints Head: atraumatic, normocephalic Respiratory: clear to auscultation Cardiovascular: regular rate and rhythm Results Result Diagram: 09/15/16 0525 09/15/16 0525 Results 24 hrs Laboratory Tests Test 09/15/16 05:25 Anion Gap 17 H Basophils # 0.0 Basophils % 0.5 Blood Morphology Comment Blood Urea Nitrogen 13 Calcium Level 9.2 Carbon Dioxide Level 27 Chloride Level 95 L Creatinine 0.22 L Eosinophils # 0.3 Eosinophils % 4.2 Glucose Level 126 Hematocrit 28.1 L Hemoglobin 9.6 L Lymphocytes # 2.1 Lymphocytes % 25.7 Magnesium Level 1.9 Mean Corpuscular Hemoglobin 29.9 Mean Corpuscular Hemoglobin Concent 34.2 Mean Corpuscular Volume 87.2 Mean Platelet Volume 8.9 Monocytes # 0.5 Monocytes % 6.7 Neutrophils # 5.1 Neutrophils % 62.9 Nucleated Red Blood Cells # 0.0 Nucleated Red Blood Cells % 0.0 Phosphorus Level 4.1 Platelet Count 255 Potassium Level 4.6 Red Blood Count 3.22 L Red Cell Distribution Width 15.1 H Sodium Level 134 L White Blood Count 8.1 Medications Medications Current Medications Trimethoprim/ Sulfamethoxazole/ Dextrose (Bactrim/D5W) 250 ml @ 166 mls/hr Q8H IVPB Last administered on 09/15/16 04:18; Admin Dose 166 MLS/HR; Start at 20:00; Stop 09/15/16 at 14:00 Multivitamins (Thera-Plus) 5 ml DAILY GTB Last administered on 09/15/16 08:25 ; Admin Dose 5 ML; Start 09/11/16 at 09:00 Lactobacillus Acidophilus/ Rhamnosus (Culturelle) 1 cap BID GTB Last administered on 09/15/16 08:26; Admin Dose 1 CAP; Start 09/10/16 at 21:00 Ondansetron HCl (Zofran Inj) 4 mg Q4 PRN IV NAUSEA AND/OR VOMITING Last administered on 09/14/16 08:03; Admin Dose 4 MG; Start 09/10/16 at 21:00 Metoclopramide HCl (Reglan) 5 mg Q6 IV Last administered on 09/15/16 11:31; Admin Dose 5 MG; Start 09/13/16 at 12:00 Famotidine (Pepcid Iv) 20 mg BID IV Last administered on 09/15/16 08:26; Admin Dose 20 MG; Start 09/13/16 at 21:00 Lorazepam (Ativan) 0.5 mg Q8H PRN IV Anxiety Last administered on 09/15/16 01: 00; Admin Dose 0.5 MG; Start 09/13/16 at 13:30 Hydromorphone HCl (Dilaudid) 1 mg Q4H PRN IV PAIN Last administered on 11:32; Admin Dose 1 MG; Start 09/14/16 at 09:00 Ferrous Sulfate (Feosol Liquid Cup) 300 mg DAILY NGT Last administered on 08:25; Admin Dose 300 MG; Start 09/14/16 at 09:00 RAYNA QUIROZ MD Sep 15, 2016 12:28
[2016-09-16] VITALS (36 sets, daily range): BP systolic 107–135; BP diastolic 54–92; PULSE 76–105; RESP 12–26
[2016-09-16] MEDS: HYDROmorphONE 1 MG/ML SYG IV PRN ×5 (01:52→19:43)
[2016-09-16] MEDS: METOCLOPRAMIDE 10 MG INJ IV SCH ×4 (05:55→18:56)
[2016-09-16 06:26] LABS: POTASSIUM 4.7 mmol/L (3.5-5.1)
[2016-09-16 06:29] LABS: CREATININE 0.24 mg/dl (0.61-1.24)
[2016-09-16 06:30] LABS: CALCIUM 9.5 mg/dl (8.4-10.2); MAGNESIUM 1.8 mg/dl (1.7-2.5); PHOSPHORUS 4.2 mg/dl (2.5-4.9)
[2016-09-16 08:03] LABS: BASOPHIL # 0.1 10^3/ul (0.0-0.1); BASOPHILS % 0.8 % (0.0-2.0); EOSINOPHILS # 0.4 10^3/ul (0.0-0.5); EOSINOPHILS % 5.7 % (0.0-7.0); HEMATOCRIT 28.7 % (42.0-52.0); HEMOGLOBIN 9.4 g/dl (14.0-18.0); LYMPHOCYTES # 1.6 10^3/ul (0.8-2.9); LYMPHOCYTES % 25.3 % (15.0-51.0); MEAN CORPUSCULAR HGB CONC 32.8 g/dl (32.0-37.0); MEAN CORPUSCULAR VOLUME 88.6 fl (82.0-101.0); MONOCYTE # 0.5 10^3/ul (0.3-0.9); MONOCYTES % 7.6 % (0.0-11.0); NEUTROPHIL # 3.9 10^3/ul (1.6-7.5); NEUTROPHILS % 60.4 % (39.0-77.0); PLATELET COUNT 289 10^3/UL (140-415); RED BLOOD COUNT 3.24 10^6/ul (4.70-6.10); RED CELL DISTRIBUTION WIDTH 14.1 % (11.5-14.5); WHITE BLOOD COUNT 6.5 10^3/ul (4.8-10.8)
[2016-09-16] MEDS: ALBUTEROL HFA 8 GM INHALER INH PRN ×3 (08:25→22:58)
[2016-09-16] MEDS: IPRATROPIUM (HFA) 12.9 GM INHALER INH PRN ×3 (08:25→22:58)
[2016-09-16] MEDS: MULTIVITAMINS 5 ML CUP GTB SCH (08:49)
[2016-09-16] MEDS: LACTOBACILLUS RHAMNOSUS CAP GTB SCH ×2 (08:49→20:18)
[2016-09-16] MEDS: FERROUS SULFATE 60 MG/ML 5ML CUP NGT SCH (08:49)
--- NOTE | 2016-09-16 08:54 | PN ---
Date/Time of Note Date/Time of Note DATE: 09/16/16 TIME: 08:53 Assessment/Plan VTE Prophylaxis VTE Prophylaxis Intervention: SCD's Lines/Catheters IV [facility] Type [facility] Peripheral IV Urinary Cath still in place: No Assessment/Plan Chief Complaint/Hosp Course 1. Left lower lobe pneumonia/atelectasis. Status post bronchoscopy with chest x-ray findings compatible with persistent left lower lobe atelectasis. Continue inhaled bronchodilators. Chest physical therapy as per pulmonary recommendations. Antibiotics as per infectious diseases. 2. Chronic respiratory failure. Status post tracheostomy. Continue inhaled bronchodilators. Continue mechanical ventilation. Weaning from mechanical ventilator as per pulmonary. 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 Continue mechanical ventilator management as per pulmonary recommendations. 4. Normocytic normochromic anemia. Will monitor the H and H closely. Iron panel showing iron deficiency. 5. Fluid, electrolytes and nutrition. Continue G-tube feedings as tolerated. 6. Deep venous thrombosis prophylaxis. Bilateral sequential compression devices. 7. Gastrointestinal prophylaxis. Histamine 2-receptor blockers. 8. PLAN: Continue routine prokinetics. The patient's family wanted to take the patient to the hospital closer to the patient's residence. Patient's family trying to find an accepting physician. Case management is working with the patient's family. The patient is medically stable to be transferred to another hospital. Case discussed with Dr. Rivera. Critical care time 35 minutes. Problems: Subjective 24 Hr Interval Summary Free Text/Dictation No changes in status. Tolerating tube feedings. Exam/Review of Systems Vital Signs Vitals Vital Signs Date Time Temp Pulse Resp B/P Pulse Ox O2 Delivery O2 Flow Rate FiO2 09/16/16 06:00 93 17 120/88 100 CPAP 09/16/16 05:20 30 09/16/16 00:00 98.6 09/13/16 09:43 8.0 Intake and Output 09/15/16 09/15/16 09/16/16 15:00 23:00 07:00 Intake Total 500 ml 500 ml 450 ml Output Total 200 ml 700 ml 250 ml Balance 300 ml -200 ml 200 ml Exam GENERAL: This is thin, frail-looking male lying in bed in no apparent distress. HEENT: Head normocephalic and atraumatic. Eyes: Anicteric sclerae. Conjunctivae clear. ENT: Nasal septum is midline. Oral mucosa is dry. NECK: Tracheostomy in midline. RESPIRATORY: Bilaterally diminished breath sounds. A tracheostomy connected to mechanical ventilator. On CPAP mode. CARDIAC: Regular rate and rhythm. No obvious murmurs heard. ABDOMEN: Scaphoid. Left upper quadrant G-tube in place. GENITOURINARY: Deferred. EXTREMITIES: Flaccid and with minimal movement in bilateral upper extremities. Severe muscle wasting of bilateral upper and lower extremities. No edema. Peripheral pulses palpable. NEUROLOGIC: The patient is awake and alert. Results Result Diagram: 09/16/16 0540 09/16/16 0540 Results 24 hrs Laboratory Tests Test 09/16/16 05:40 Anion Gap 16 Basophils # 0.1 Basophils % 0.8 Blood Urea Nitrogen 17 Calcium Level 9.5 Carbon Dioxide Level 30 Chloride Level 95 L Creatinine 0.24 L Eosinophils # 0.4 Eosinophils % 5.7 Glucose Level 113 Hematocrit 28.7 L Hemoglobin 9.4 L Lymphocytes # 1.6 Lymphocytes % 25.3 Magnesium Level 1.8 Mean Corpuscular Hemoglobin 29.0 Mean Corpuscular Hemoglobin Concent 32.8 Mean Corpuscular Volume 88.6 Mean Platelet Volume 10.0 Monocytes # 0.5 Monocytes % 7.6 Neutrophils # 3.9 Neutrophils % 60.4 Nucleated Red Blood Cells # 0.0 Nucleated Red Blood Cells % 0.0 Phosphorus Level 4.2 Platelet Count 289 Potassium Level 4.7 Red Blood Count 3.24 L Red Cell Distribution Width 14.1 Sodium Level 136 White Blood Count 6.5 Medications Medications Current Medications Multivitamins (Thera-Plus) 5 ml DAILY GTB Last administered on 09/15/16 08:25 ; Admin Dose 5 ML; Start 09/11/16 at 09:00 Lactobacillus Acidophilus/ Rhamnosus (Culturelle) 1 cap BID GTB Last administered on 09/15/16 20:39; Admin Dose 1 CAP; Start 09/10/16 at 21:00 Ondansetron HCl (Zofran Inj) 4 mg Q4 PRN IV NAUSEA AND/OR VOMITING Last administered on 09/14/16 08:03; Admin Dose 4 MG; Start 09/10/16 at 21:00 Metoclopramide HCl (Reglan) 5 mg Q6 IV Last administered on 09/16/16 05:55; Admin Dose 5 MG; Start 09/13/16 at 12:00 Famotidine (Pepcid Iv) 20 mg BID IV Last administered on 09/15/16 20:39; Admin Dose 20 MG; Start 09/13/16 at 21:00 Lorazepam (Ativan) 0.5 mg Q8H PRN IV Anxiety Last administered on 09/15/16 23: 10; Admin Dose 0.5 MG; Start 09/13/16 at 13:30 Hydromorphone HCl (Dilaudid) 1 mg Q4H PRN IV PAIN Last administered on 05:55; Admin Dose 1 MG; Start 09/14/16 at 09:00 Ferrous Sulfate (Feosol Liquid Cup) 300 mg DAILY NGT Last administered on 08:25; Admin Dose 300 MG; Start 09/14/16 at 09:00 DAYLIN SHAVER NP Sep 16, 2016 08:54
[2016-09-16] MEDS: FAMOTIDINE 20 MG INJ IV SCH ×2 (08:57→20:18)
[2016-09-16] MEDS: NACL 0.9% 3 ML SYG IV SCH (08:58)
--- NOTE | 2016-09-16 10:04 | CONS ---
Date/Time of Note Date/Time of Note DATE: 09/16/16 TIME: 09:59 Assessment/Plan Assessment/Plan Additional Assessment/Plan Ventilator settings; CPAP, pressure support of 10, 28% FiO2. Assessment recommendations; 1. Patient admitted for left lower lobe pneumonia/atelectasis from mucous plugging status post bronchoscopy with marked clinical improvement. 2. Muscular dystrophy. Patient now ventilator dependent. Continue current supportive care. Patient will require home ventilator. Consultation Date/Type/Reason Admit Date/Time Sep 08, 2016 at 15:10 Initial Consult Date 09/08/16 Type of Consultation: Pulmonary Referring Provider: SY VENTURA 24 HR Interval Summary Free Text/Dictation Patient condition is stable. Denies any shortness of breath, chest congestion, nausea, any fever chills. General examination; young male, on ventilator via tracheostomy currently in no distress. Awake and alert. Exam/Review of Systems Vital Signs Vitals Vital Signs Date Time Temp Pulse Resp B/P Pulse Ox O2 Delivery O2 Flow Rate FiO2 09/16/16 09:49 88 14 100 30 09/16/16 06:00 120/88 CPAP 09/16/16 00:00 98.6 09/13/16 09:43 8.0 Intake and Output 09/15/16 09/15/16 09/16/16 15:00 23:00 07:00 Intake Total 500 ml 500 ml 450 ml Output Total 200 ml 700 ml 250 ml Balance 300 ml -200 ml 200 ml Exam HEENT examination; supple neck, no JVD. No lymphadenopathy. Tracheostomy in place with clean insertion site. Pharynx is clear. With a midsize and reactive to light. Chest examination; clear to auscultation bilaterally. S1-S2 audible, no murmurs. Regular rhythm. Abdomen examination; soft, nontender. G-tube in place. Bowel sounds audible. Extremity examination; no peripheral edema. PACKER INSPECTOR examination; patient has stable finger movements in both hands. Results Result Diagram: 09/16/16 0540 09/16/16 0540 Results 24 hrs Laboratory Tests Test 09/16/16 05:40 Anion Gap 16 Basophils # 0.1 Basophils % 0.8 Blood Urea Nitrogen 17 Calcium Level 9.5 Carbon Dioxide Level 30 Chloride Level 95 L Creatinine 0.24 L Eosinophils # 0.4 Eosinophils % 5.7 Glucose Level 113 Hematocrit 28.7 L Hemoglobin 9.4 L Lymphocytes # 1.6 Lymphocytes % 25.3 Magnesium Level 1.8 Mean Corpuscular Hemoglobin 29.0 Mean Corpuscular Hemoglobin Concent 32.8 Mean Corpuscular Volume 88.6 Mean Platelet Volume 10.0 Monocytes # 0.5 Monocytes % 7.6 Neutrophils # 3.9 Neutrophils % 60.4 Nucleated Red Blood Cells # 0.0 Nucleated Red Blood Cells % 0.0 Phosphorus Level 4.2 Platelet Count 289 Potassium Level 4.7 Red Blood Count 3.24 L Red Cell Distribution Width 14.1 Sodium Level 136 White Blood Count 6.5 Medications Medications Current Medications Multivitamins (Thera-Plus) 5 ml DAILY GTB Last administered on 09/16/16 08:49 ; Admin Dose 5 ML; Start 09/11/16 at 09:00 Lactobacillus Acidophilus/ Rhamnosus (Culturelle) 1 cap BID GTB Last administered on 09/16/16 08:49; Admin Dose 1 CAP; Start 09/10/16 at 21:00 Ondansetron HCl (Zofran Inj) 4 mg Q4 PRN IV NAUSEA AND/OR VOMITING Last administered on 09/14/16 08:03; Admin Dose 4 MG; Start 09/10/16 at 21:00 Metoclopramide HCl (Reglan) 5 mg Q6 IV Last administered on 09/16/16 05:55; Admin Dose 5 MG; Start 09/13/16 at 12:00 Famotidine (Pepcid Iv) 20 mg BID IV Last administered on 09/16/16 08:57; Admin Dose 20 MG; Start 09/13/16 at 21:00 Lorazepam (Ativan) 0.5 mg Q8H PRN IV Anxiety Last administered on 09/15/16 23: 10; Admin Dose 0.5 MG; Start 09/13/16 at 13:30 Hydromorphone HCl (Dilaudid) 1 mg Q4H PRN IV PAIN Last administered on 05:55; Admin Dose 1 MG; Start 09/14/16 at 09:00 Ferrous Sulfate (Feosol Liquid Cup) 300 mg DAILY NGT Last administered on 08:49; Admin Dose 300 MG; Start 09/14/16 at 09:00 SY VENTURA Sep 16, 2016 10:04
--- NOTE | 2016-09-16 11:26 | CONS ---
Date/Time of Note Date/Time of Note DATE: 09/16/16 TIME: 11:22 Assessment/Plan Assessment/Plan Chief Complaint/Hosp Course - SIRS vs early sepsis d/t probable PNA. Fever, tachycardia and mild leukocytosis at [facility] has resolved - Left lower lobe pneumonia/atelectasis/mucus plug. S/p bronchoscopy 09/09/16 - Stenotrophomonas in the airway, possible colonization - completed 7 day course of Bactrim (09/08/16-09/15/16) - Chronic respiratory failure s/p trach 07/2016 - Recent Hx severe PNA and bronch at [facility] in July 2016. - Dysphagia s/p g tube 07/2016 - Duchenne muscular dystrophy Recommendations: - Monitor off abx - Continue probiotic - Management d/w Pt and pt's mother and BAND LEADER; Also d/w case management - Above d/w Dr. Guevara - Critical care time spent: 30 minutes Problems: Consultation Date/Type/Reason Admit Date/Time Sep 08, 2016 at 15:10 Initial Consult Date 09/08/16 Type of Consultation: Infectious Disease Referring Provider: SY VENTURA 24 HR Interval Summary Free Text/Dictation Pt afebrile and clinically stable; tolerating TF at goal rate per RN [place]. Pt denies pain, SOB, n/v/d. Mother states they are hoping pt can transfer to subacute facility close to home ([place]). Exam/Review of Systems Vital Signs Vitals Vital Signs Date Time Temp Pulse Resp B/P Pulse Ox O2 Delivery O2 Flow Rate FiO2 09/16/16 09:49 88 14 100 30 09/16/16 06:00 120/88 CPAP 09/16/16 00:00 98.6 09/13/16 09:43 8.0 Intake and Output 09/15/16 09/15/16 09/16/16 15:00 23:00 07:00 Intake Total 500 ml 500 ml 450 ml Output Total 200 ml 700 ml 250 ml Balance 300 ml -200 ml 200 ml Exam Constitutional: alert, frail, oriented Head: atraumatic, normocephalic ENMT: other (trach midline and intact on ventilator support; CPAP mode) Neck: supple Respiratory: Essentially clear to auscultation; no wheezing or use of accessory muscles. Cardiovascular: regular rate and rhythm, normal S1, S2 Gastrointestinal: bowel sounds, non-tender, other (G tube clamped and intact), soft Extremities: normal pulses, other (atrophy noted and trace swelling on Right foot), No clubbing, No cyanosis Neurological: nl mental status, other (quadriplegic) Skin: nl turgor, No rash or lesions Results Result Diagram: 09/16/16 0540 09/16/16 0540 Results 24 hrs Laboratory Tests Test 09/16/16 05:40 Anion Gap 16 Basophils # 0.1 Basophils % 0.8 Blood Urea Nitrogen 17 Calcium Level 9.5 Carbon Dioxide Level 30 Chloride Level 95 L Creatinine 0.24 L Eosinophils # 0.4 Eosinophils % 5.7 Glucose Level 113 Hematocrit 28.7 L Hemoglobin 9.4 L Lymphocytes # 1.6 Lymphocytes % 25.3 Magnesium Level 1.8 Mean Corpuscular Hemoglobin 29.0 Mean Corpuscular Hemoglobin Concent 32.8 Mean Corpuscular Volume 88.6 Mean Platelet Volume 10.0 Monocytes # 0.5 Monocytes % 7.6 Neutrophils # 3.9 Neutrophils % 60.4 Nucleated Red Blood Cells # 0.0 Nucleated Red Blood Cells % 0.0 Phosphorus Level 4.2 Platelet Count 289 Potassium Level 4.7 Red Blood Count 3.24 L Red Cell Distribution Width 14.1 Sodium Level 136 White Blood Count 6.5 Medications Medications Current Medications Multivitamins (Thera-Plus) 5 ml DAILY GTB Last administered on 09/16/16 08:49 ; Admin Dose 5 ML; Start 09/11/16 at 09:00 Lactobacillus Acidophilus/ Rhamnosus (Culturelle) 1 cap BID GTB Last administered on 09/16/16 08:49; Admin Dose 1 CAP; Start 09/10/16 at 21:00 Ondansetron HCl (Zofran Inj) 4 mg Q4 PRN IV NAUSEA AND/OR VOMITING Last administered on 09/14/16 08:03; Admin Dose 4 MG; Start 09/10/16 at 21:00 Metoclopramide HCl (Reglan) 5 mg Q6 IV Last administered on 09/16/16 05:55; Admin Dose 5 MG; Start 09/13/16 at 12:00 Famotidine (Pepcid Iv) 20 mg BID IV Last administered on 09/16/16 08:57; Admin Dose 20 MG; Start 09/13/16 at 21:00 Lorazepam (Ativan) 0.5 mg Q8H PRN IV Anxiety Last administered on 09/15/16 23: 10; Admin Dose 0.5 MG; Start 09/13/16 at 13:30 Hydromorphone HCl (Dilaudid) 1 mg Q4H PRN IV PAIN Last administered on 10:20; Admin Dose 1 MG; Start 09/14/16 at 09:00 Ferrous Sulfate (Feosol Liquid Cup) 300 mg DAILY NGT Last administered on 08:49; Admin Dose 300 MG; Start 09/14/16 at 09:00 CHERYL SOTOMAYOR NP Sep 16, 2016 11:26
--- NOTE | 2016-09-16 15:38 | PDOCDIS ---
Discharge Instructions DIAGNOSIS Discharge Diagnosis: Acute on chronic respiratory failure. Healthcare associated pneumonia. CONDITION Patient Condition: Stable HOME CARE INSTRUCTIONS: Special Diet: TUBE FEEDING OTHER ORDERS: Other Orders: 1. Medications as per medication reconciliation. 2. Continue the current the tube feedings at the current rate. 3. Ventilator management as per pulmonary. DAYLIN SHAVER NP Sep 16, 2016 15:38
--- NOTE | 2016-09-16 17:04 | DS ---
DATE OF ADMISSION: 09/08/2016 DATE OF DISCHARGE: 09/16/2016 (The patient to be discharged to [facility].) FINAL DIAGNOSES: 1. Left lower lobe pneumonia/atelectasis. 2. Chronic respiratory failure. 3. Duchenne's muscular dystrophy. 4. Normocytic normochromic anemia. 5. Iron deficiency. 6. Chronic bedridden status. CONSULTATIONS: 1. Dr. Rome Villa, pulmonology. 2. Dr. John Guevara, infectious disease. 3. Dr. Ruth Petersen, infectious disease. 4. Dr. Fabrizio Ye, pulmonology. HOSPITAL COURSE: This is a 26-year-old male with a past medical history of Duchenne's muscular dystrophy and respiratory failure, status post tracheostomy , who was in [facility] undergoing respiratory rehabilitation. He was transferred from [facility] to the intensive care unit because of hypoxia. There was also concern for a mucous plug, so the patient was transferred to the intensive care unit at [facility]. The patient was maintained on antibiotics as per infectious disease. The patient was seen and evaluated by pulmonology. The patient underwent a bronchoscopy on 09/09/2016 that showed partial obstruction of the left lower lobe, lateral segment, with mucus, which was suctioned out. The patient was maintained on the ventilator as per pulmonology. The patient's sputum culture showed Stenotrophomonas maltophilia. The patient was maintained on antimicrobials as per infectious disease. The rest of the patient's cultures remained negative. The patient continued to have left lower lobe atelectasis on radiographic imaging. Hence, the patient was started on chest percussion therapy. The patient had some underlying Duchenne's muscular dystrophy and the patient is chronically bedridden. The patient was also noticed to have normocytic normochromic anemia. The patient was noticed to have underlying iron deficiency. Consequently, the patient was started on iron supplements. The patient also had difficulty with tolerating tube feedings. Hence, a dietary consult was obtained. The patient's tube feeding diet was changed as per dietary recommendations. The patient was also maintained on prokinetics with improvement in the patient's tolerance to tube feedings. The patient was progressing well. The patient's family initially wanted to take to the patient back to the patient's home. However, the patient needed a mechanical ventilator that is something new. The family worked with the patient' s insurance. However, there was difficulty in getting approval for a mechanical ventilator at home. The patient's family also tried transferring the patient to a hospital closer to the patient's residence, which is in [place]. However, the patient's family was unsuccessful. Hence, the family decided to take the patient back to [facility] for further pulmonary rehabilitation. The patient is stable to be discharged back to [facility] for further pulmonary rehabilitation. DISCHARGE DISPOSITION/PLAN: The patient will be discharged to [facility]. The patient will continue the current tube feedings at the current rate. Ventilator management is as per pulmonary. Medications will be as per medication list, which are listed below. CONDITION AT DISCHARGE: Stable. DISCHARGE MEDICATIONS: 1. Hydromorphone 1 mg IV q.4h. p.r.n. pain. 2. Ferrous sulfate 300 mg via G-tube daily. 3. Pepcid 20 mg IV b.i.d. 4. Ativan 0.5 mg IV q.8h. p.r.n. anxiety. 5. Reglan 5 mg IV q.6h. around the clock. 6. Multivitamin 5 mL via G-tube daily. 7. Lactobacillus acidophilus, 1 capsule via G-tube b.i.d. 8. Albuterol HFA 4 puffs inhalation p.r.n. shortness of breath. 9. Atrovent HFA 4 puffs q.4h. p.r.n. shortness of breath. PERTINENT LABORATORIES, DIAGNOSTIC DATA AND PROCEDURES: 1. Bronchoscopy on 09/09/2016 that showed left lower lobe partial obstruction with mucus, which was suctioned out. 2. Sputum culture positive for Stenotrophomonas maltophilia. 3. Urine culture. Negative. 4. Blood cultures. Negative. 5. Influenza A and B. Negative. 6. Latest CBC: WBC 6.5, hemoglobin 9.4, hematocrit 28.7, platelet count 289. 7. Latest BMP: Sodium 136, potassium 4.7, chloride 95, carbon dioxide 30, anion gap 16, BUN 20, creatinine 0.24, glucose 113, calcium 9.4, phosphorus 4.2 , magnesium 1.8. 8. Iron panel: Iron 42, TIBC 220, iron saturation 19, ferritin 272. At this time I would like to thank all the consultants for seeing the patient, doing the necessary procedures, and providing clinical recommendations. The case and management of this patient was fully discussed with Dr. Joseph. Approximately 40 minutes was spent on coordinating the discharge on this patient. DAYLIN JOSEPH MD, AM/KAITLIN Conf#: [id number] DID#: [id number] MTDD
[2016-09-17] VITALS (34 sets, daily range): BP systolic 106–140; BP diastolic 63–96; PULSE 71–112; RESP 12–26
[2016-09-17] MEDS: METOCLOPRAMIDE 10 MG INJ IV SCH ×4 (00:08→18:14)
[2016-09-17] MEDS: HYDROmorphONE 1 MG/ML SYG IV PRN ×6 (00:09→19:58)
[2016-09-17] MEDS: LACTOBACILLUS RHAMNOSUS CAP GTB SCH ×2 (09:03→20:00)
[2016-09-17] MEDS: MULTIVITAMINS 5 ML CUP GTB SCH (09:03)
[2016-09-17] MEDS: FERROUS SULFATE 60 MG/ML 5ML CUP NGT SCH (09:03)
[2016-09-17] MEDS: FAMOTIDINE 20 MG INJ IV SCH ×2 (09:03→20:00)
[2016-09-17] MEDS: ONDANSETRON 4 MG INJ IV PRN ×2 (09:20→18:13)
--- NOTE | 2016-09-17 09:25 | CONS ---
Date/Time of Note Date/Time of Note DATE: 09/17/16 TIME: 09:22 Assessment/Plan Assessment/Plan Additional Assessment/Plan Ventilator settings; CPAP, pressure support 10, 28% FiO2. Assessment and recommendations; next 1. Patient admitted for left lower lobe pneumonia/atelectasis, status post bronchoscopy with clearing of mucous plug. 2. Marked improvement in examination with clear lungs now. 3. Muscular dystrophy patient remains ventilator dependent on CPAP mode. Continue current treatment. Patient awaiting discharge home. Consultation Date/Type/Reason Admit Date/Time Sep 08, 2016 at 15:10 Initial Consult Date 09/08/16 Type of Consultation: Pulmonary/critical care Referring Provider: SY VENTURA 24 HR Interval Summary Free Text/Dictation Patient condition stable. Denies any shortness of breath. Complains of occasional chest congestion. Occasional nausea. No vomiting observed. Has remained hemodynamically stable. General examination; young male, on ventilator via tracheostomy currently in no distress awake and alert. Exam/Review of Systems Vital Signs Vitals Vital Signs Date Time Temp Pulse Resp B/P Pulse Ox O2 Delivery O2 Flow Rate FiO2 09/17/16 08:00 98.3 97 16 138/96 97 CPAP Mechanical Ventilator 09/17/16 05:41 30 09/13/16 09:43 8.0 Intake and Output 09/16/16 09/16/16 09/17/16 15:00 23:00 07:00 Intake Total 400 ml 550 ml 450 ml Output Total 425 ml 150 ml 500 ml Balance -25 ml 400 ml -50 ml Exam HEENT examination; supple neck, no JVD. No lymphadenopathy. Tracheostomy in place. Chest examination; clear to auscultation bilaterally. S1-S2 audible, no murmurs. Regular rhythm. Abdomen exam is; soft, nondistended. G-tube in place. Bowel sounds audible. Nondistended. Extremity examination; no peripheral edema. TANNING SALON ATTENDANT examination; patient is stable quadriplegia but still able to move fingers in both hands to some extent. Results Result Diagram: 09/16/16 0540 09/16/16 0540 Medications Medications Current Medications Multivitamins (Thera-Plus) 5 ml DAILY GTB Last administered on 09/17/16t 09:03 ; Admin Dose 5 ML; Start 09/11/16 at 09:00 Lactobacillus Acidophilus/ Rhamnosus (Culturelle) 1 cap BID GTB Last administered on 09/17/16 09:03; Admin Dose 1 CAP; Start 09/10/16 at 21:00 Ondansetron HCl (Zofran Inj) 4 mg Q4 PRN IV NAUSEA AND/OR VOMITING Last administered on 09/17/16 09:20; Admin Dose 4 MG; Start 09/10/16 at 21:00 Metoclopramide HCl (Reglan) 5 mg Q6 IV Last administered on 09/17/16 00:08; Admin Dose 5 MG; Start 09/13/16 at 12:00 Famotidine (Pepcid Iv) 20 mg BID IV Last administered on 09/17/16 09:03; Admin Dose 20 MG; Start 09/13/16 at 21:00 Lorazepam (Ativan) 0.5 mg Q8H PRN IV Anxiety Last administered on 09/15/16 23: 10; Admin Dose 0.5 MG; Start 09/13/16 at 13:30 Hydromorphone HCl (Dilaudid) 1 mg Q4H PRN IV PAIN Last administered on 08:24; Admin Dose 1 MG; Start 09/14/16 at 09:00 Ferrous Sulfate (Feosol Liquid Cup) 300 mg DAILY NGT Last administered on 09:03; Admin Dose 300 MG; Start 09/14/16 at 09:00 SY VENTURA Sep 17, 2016 09:25
[2016-09-17] MEDS: IPRATROPIUM (HFA) 12.9 GM INHALER INH PRN (09:28)
[2016-09-17] MEDS: ALBUTEROL HFA 8 GM INHALER INH PRN (09:29)
--- NOTE | 2016-09-17 09:31 | PN ---
Date/Time of Note Date/Time of Note DATE: 09/17/16 TIME: 09:29 Assessment/Plan VTE Prophylaxis VTE Prophylaxis Intervention: SCD's Lines/Catheters IV [facility]ter Type (from [facility]): Peripheral IV Urinary Cath still in place: No Assessment/Plan Chief Complaint/Hosp Course 1. Left lower lobe pneumonia/atelectasis. Status post bronchoscopy with chest x-ray findings compatible with persistent left lower lobe atelectasis. Continue inhaled bronchodilators. Chest physical therapy as per pulmonary recommendations. Antibiotics as per infectious diseases. 2. Chronic respiratory failure. Status post tracheostomy. Continue inhaled bronchodilators. Continue mechanical ventilation. Weaning from mechanical ventilator as per pulmonary. 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 Continue mechanical ventilator management as per pulmonary recommendations. 4. Normocytic normochromic anemia. Will monitor the H and H closely. Iron panel showing iron deficiency. 5. Fluid, electrolytes and nutrition. Continue G-tube feedings as tolerated. 6. Deep venous thrombosis prophylaxis. Bilateral sequential compression devices. 7. Gastrointestinal prophylaxis. Histamine 2-receptor blockers. 8. PLAN: Continue routine prokinetics. The patient's family wanted to take the patient to the hospital closer to the patient's residence. Patient's family trying to find an accepting physician. Case management is working with the patient's family. The patient is medically stable to be transferred to another hospital. Case discussed with Dr. Rivera. Critical care time 35 minutes. Problems: Subjective 24 Hr Interval Summary Free Text/Dictation The patient had discharge orders to [place] yesterday. However, the patient's family refused to transfer to [place]. The patient had some tube feeding residual today. Exam/Review of Systems Vital Signs Vitals Vital Signs Date Time Temp Pulse Resp B/P Pulse Ox O2 Delivery O2 Flow Rate FiO2 09/17/16 08:00 100 09/17/16 08:00 98.3 16 138/96 97 CPAP Mechanical Ventilator 09/17/16 05:41 30 09/13/16 09:43 8.0 Intake and Output 09/16/16 09/16/16 09/17/16 15:00 23:00 07:00 Intake Total 400 ml 550 ml 450 ml Output Total 425 ml 150 ml 500 ml Balance -25 ml 400 ml -50 ml Exam GENERAL: This is thin, frail-looking male lying in bed in no apparent distress. HEENT: Head normocephalic and atraumatic. Eyes: Anicteric sclerae. Conjunctivae clear. ENT: Nasal septum is midline. Oral mucosa is dry. NECK: Tracheostomy in midline. RESPIRATORY: Bilaterally diminished breath sounds. A tracheostomy connected to mechanical ventilator. On CPAP mode. CARDIAC: Regular rate and rhythm. No obvious murmurs heard. ABDOMEN: Scaphoid. Left upper quadrant G-tube in place. GENITOURINARY: Deferred. EXTREMITIES: Flaccid and with minimal movement in bilateral upper extremities. Severe muscle wasting of bilateral upper and lower extremities. No edema. Peripheral pulses palpable. NEUROLOGIC: The patient is awake and alert. Results Result Diagram: 09/16/1653909/16/16539 Medications Medications Current Medications Multivitamins (Thera-Plus) 5 ml DAILY GTB Last administered on 09/17/16 09:03 ; Admin Dose 5 ML; Start 09/11/16 at 09:00 Lactobacillus Acidophilus/ Rhamnosus (Culturelle) 1 cap BID GTB Last administered on 09/17/16 09:03; Admin Dose 1 CAP; Start 09/10/16 at 21:00 Ondansetron HCl (Zofran Inj) 4 mg Q4 PRN IV NAUSEA AND/OR VOMITING Last administered on 09/17/16 09:20; Admin Dose 4 MG; Start 09/10/16 at 21:00 Metoclopramide HCl (Reglan) 5 mg Q6 IV Last administered on 09/17/16 00:08; Admin Dose 5 MG; Start 09/13/16 at 12:00 Famotidine (Pepcid Iv) 20 mg BID IV Last administered on 09/17/16 09:03; Admin Dose 20 MG; Start 09/13/16 at 21:00 Lorazepam (Ativan) 0.5 mg Q8H PRN IV Anxiety Last administered on 09/15/16 23: 10; Admin Dose 0.5 MG; Start 09/13/16 at 13:30 Hydromorphone HCl (Dilaudid) 1 mg Q4H PRN IV PAIN Last administered on 08:24; Admin Dose 1 MG; Start 09/14/16 at 09:00 Ferrous Sulfate (Feosol Liquid Cup) 300 mg DAILY NGT Last administered on 09:03; Admin Dose 300 MG; Start 09/14/16 at 09:00 DAYLIN SHAVER NP Sep 17, 2016 09:31
--- NOTE | 2016-09-17 13:35 | CONS ---
Date/Time of Note Date/Time of Note DATE: 09/17/16 TIME: 13:34 Assessment/Plan Assessment/Plan Chief Complaint/Hosp Course - SIRS vs early sepsis d/t probable PNA. Fever, tachycardia and mild leukocytosis at [facility] has resolved - Left lower lobe pneumonia/atelectasis/mucus plug. S/p bronchoscopy 09/09/16 - Stenotrophomonas in the airway, possible colonization - completed 7 day course of Bactrim (09/08/16-09/15/16) - Chronic respiratory failure s/p trach 07/2016 - Recent Hx severe PNA and bronch at [facility] in July 2016. 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 Guevara - Critical care time spent: 30 minutes Problems: Consultation Date/Type/Reason Admit Date/Time Sep 08, 2016 at 15:10 Initial Consult Date 09/08/16 Type of Consultation: Infectious Disease Referring Provider: SY VENTURA 24 HR Interval Summary Free Text/Dictation Clinically unchanged and awaiting placement per RN Adrianna. Had some nausea earlier but no vomiting per pt's mother. Denies SOB, abd pain, n/v/d, dysuria. Had an episode of loose stool yesterday per pt's mother. Exam/Review of Systems Vital Signs Vitals Vital Signs Date Time Temp Pulse Resp B/P Pulse Ox O2 Delivery O2 Flow Rate FiO2 09/17/16 12:00 103 09/17/16 11:58 18 98 30 09/17/16 11:00 121/73 Mechanical Ventilator 09/17/16 08:00 98.3 09/13/16 09:43 8.0 Intake and Output 09/16/16 09/16/16 09/17/16 15:00 23:00 07:00 Intake Total 400 ml 550 ml 500 ml Output Total 425 ml 150 ml 500 ml Balance -25 ml 400 ml 0 ml Exam Constitutional: alert, frail, oriented Head: atraumatic, normocephalic ENMT: other (trach midline and intact on ventilator support; CPAP mode) Neck: supple Respiratory: Essentially clear to auscultation; no wheezing or use of accessory muscles. Cardiovascular: regular rate and rhythm, normal S1, S2 Gastrointestinal: bowel sounds, non-tender, other (G tube with TF currently on hold), soft Extremities: normal pulses, other (atrophy noted and trace swelling on Right foot), No clubbing, No cyanosis Neurological: nl mental status, other (quadriplegic) Skin: nl turgor, No rash or lesions Results Result Diagram: 09/16/16 0540 09/16/16 0540 Medications Medications Current Medications Multivitamins (Thera-Plus) 5 ml DAILY GTB Last administered on 09/17/16 09:03 ; Admin Dose 5 ML; Start 09/11/16 at 09:00 Lactobacillus Acidophilus/ Rhamnosus (Culturelle) 1 cap BID GTB Last administered on 09/17/16 09:03; Admin Dose 1 CAP; Start 09/10/16 at 21:00 Ondansetron HCl (Zofran Inj) 4 mg Q4 PRN IV NAUSEA AND/OR VOMITING Last administered on 09/17/16 09:20; Admin Dose 4 MG; Start 09/10/16 at 21:00 Metoclopramide HCl (Reglan) 5 mg Q6 IV Last administered on 09/17/16 12:00; Admin Dose 5 MG; Start 09/13/16 at 12:00 Famotidine (Pepcid Iv) 20 mg BID IV Last administered on 09/17/16 09:03; Admin Dose 20 MG; Start 09/13/16 at 21:00 Lorazepam (Ativan) 0.5 mg Q8H PRN IV Anxiety Last administered on 09/15/16 23: 10; Admin Dose 0.5 MG; Start 09/13/16 at 13:30 Hydromorphone HCl (Dilaudid) 1 mg Q4H PRN IV PAIN Last administered on 12:17; Admin Dose 1 MG; Start 09/14/16 at 09:00 Ferrous Sulfate (Feosol Liquid Cup) 300 mg DAILY NGT Last administered on 09:03; Admin Dose 300 MG; Start 09/14/16 at 09:00 CHERYL SOTOMAYOR NP Sep 17, 2016 13:35
[2016-09-18] VITALS (33 sets, daily range): BP systolic 116–146; BP diastolic 72–108; PULSE 75–104; RESP 10–26
[2016-09-18 05:07] LABS: ADD SCAN DIFF NO
[2016-09-18 05:11] LABS: BASOPHILS % 0.6 % (0.0-2.0); EOSINOPHILS # 0.5 10^3/ul (0.0-0.5); HEMATOCRIT 29.7 % (42.0-52.0); HEMOGLOBIN 9.2 g/dl (14.0-18.0); LYMPHOCYTES # 1.8 10^3/ul (0.8-2.9); LYMPHOCYTES % 27.6 % (15.0-51.0); MEAN CORPUSCULAR VOLUME 90.5 fl (82.0-101.0); MEAN PLATELET VOLUME 10.1 fl (7.4-10.4); MONOCYTE # 0.4 10^3/ul (0.3-0.9); MONOCYTES % 6.7 % (0.0-11.0); NEUTROPHIL # 3.7 10^3/ul (1.6-7.5); NEUTROPHILS % 57.8 % (39.0-77.0); PLATELET COUNT 310 10^3/UL (140-415); RED BLOOD COUNT 3.28 10^6/ul (4.70-6.10); RED CELL DISTRIBUTION WIDTH 13.8 % (11.5-14.5); WHITE BLOOD COUNT 6.5 10^3/ul (4.8-10.8)
[2016-09-18] MEDS: METOCLOPRAMIDE 10 MG INJ IV SCH ×5 (05:24→23:11)
[2016-09-18] MEDS: HYDROmorphONE 1 MG/ML SYG IV PRN ×6 (05:24→22:35)
[2016-09-18 05:25] LABS: POTASSIUM 4.8 mmol/L (3.5-5.1)
[2016-09-18 05:26] LABS: MAGNESIUM 1.8 mg/dl (1.7-2.5); PHOSPHORUS 4.1 mg/dl (2.5-4.9)
[2016-09-18 05:28] LABS: CREATININE 0.25 mg/dl (0.61-1.24)
[2016-09-18 05:29] LABS: CALCIUM 9.8 mg/dl (8.4-10.2)
[2016-09-18] MEDS: ALBUTEROL HFA 8 GM INHALER INH PRN ×4 (05:52→17:44)
[2016-09-18] MEDS: IPRATROPIUM (HFA) 12.9 GM INHALER INH PRN ×4 (05:52→17:44)
--- NOTE | 2016-09-18 08:53 | PN ---
Date/Time of Note Date/Time of Note DATE: 09/18/16 TIME: 08:52 Assessment/Plan VTE Prophylaxis VTE Prophylaxis Intervention: SCD's Lines/Catheters IV C[facility]ter Type (from [facility] Saline Lock Urinary Cath still in place: No Assessment/Plan Chief Complaint/Hosp Course 1. Left lower lobe pneumonia/atelectasis. Status post bronchoscopy with chest x-ray findings compatible with persistent left lower lobe atelectasis. Continue inhaled bronchodilators. Chest physical therapy as per pulmonary recommendations. Antibiotics as per infectious diseases. 2. Chronic respiratory failure. Status post tracheostomy. Continue inhaled bronchodilators. Continue mechanical ventilation. Weaning from mechanical ventilator as per pulmonary. 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 Continue mechanical ventilator management as per pulmonary recommendations. 4. Normocytic normochromic anemia. Will monitor the H and H closely. Iron panel showing iron deficiency. 5. Fluid, electrolytes and nutrition. Continue G-tube feedings as tolerated. 6. Deep venous thrombosis prophylaxis. Bilateral sequential compression devices. 7. Gastrointestinal prophylaxis. Histamine 2-receptor blockers. 8. PLAN: Continue routine prokinetics. The patient's family wanted to take the patient to the hospital closer to the patient's residence. Patient's family trying to find an accepting physician. Case management is working with the patient's family. The patient is medically stable to be transferred to another hospital. Case discussed with Dr. Rivera. Critical care time 35 minutes. Problems: Subjective 24 Hr Interval Summary Free Text/Dictation No changes in status. Vital signs stable. Exam/Review of Systems Vital Signs Vitals Vital Signs Date Time Temp Pulse Resp B/P Pulse Ox O2 Delivery O2 Flow Rate FiO2 09/18/16 06:00 95 15 126/87 98 CPAP 09/18/16 05:54 30 09/18/16 04:00 98.4 Intake and Output 09/17/16 09/17/16 09/18/16 14:59 22:59 06:59 Intake Total 210 ml 450 ml 500 ml Output Total 500 ml 700 ml 250 ml Balance -290 ml -250 ml 250 ml Exam GENERAL: This is thin, frail-looking male lying in bed in no apparent distress. HEENT: Head normocephalic and atraumatic. Eyes: Anicteric sclerae. Conjunctivae clear. ENT: Nasal septum is midline. Oral mucosa is dry. NECK: Tracheostomy in midline. RESPIRATORY: Bilaterally diminished breath sounds. A tracheostomy connected to mechanical ventilator. On CPAP mode. CARDIAC: Regular rate and rhythm. No obvious murmurs heard. ABDOMEN: Scaphoid. Left upper quadrant G-tube in place. GENITOURINARY: Deferred. EXTREMITIES: Flaccid and with minimal movement in bilateral upper extremities. Severe muscle wasting of bilateral upper and lower extremities. No edema. Peripheral pulses palpable. NEUROLOGIC: The patient is awake and alert. Results Result Diagram: 09/18/1643609/18/16436 Results 24 hrs Laboratory Tests Test 09/18/16 04:37 Anion Gap 13 Basophils # 0.0 Basophils % 0.6 Blood Urea Nitrogen 25 H Calcium Level 9.8 Carbon Dioxide Level 33 H Chloride Level 100 Creatinine 0.25 L Eosinophils # 0.5 Eosinophils % 7.0 Glucose Level 99 Hematocrit 29.7 L Hemoglobin 9.2 L Lymphocytes # 1.8 Lymphocytes % 27.6 Magnesium Level 1.8 Mean Corpuscular Hemoglobin 28.0 L Mean Corpuscular Hemoglobin Concent 31.0 L Mean Corpuscular Volume 90.5 Mean Platelet Volume 10.1 Monocytes # 0.4 Monocytes % 6.7 Neutrophils # 3.7 Neutrophils % 57.8 Nucleated Red Blood Cells # 0.0 Nucleated Red Blood Cells % 0.0 Phosphorus Level 4.1 Platelet Count 310 Potassium Level 4.8 Red Blood Count 3.28 L Red Cell Distribution Width 13.8 Sodium Level 141 White Blood Count 6.5 Medications Medications Current Medications Multivitamins (Thera-Plus) 5 ml DAILY GTB Last administered on 09/17/16 09:03 ; Admin Dose 5 ML; Start 09/11/16 at 09:00 Lactobacillus Acidophilus/ Rhamnosus (Culturelle) 1 cap BID GTB Last administered on 09/17/16 20:00; Admin Dose 1 CAP; Start 09/10/16 at 21:00 Ondansetron HCl (Zofran Inj) 4 mg Q4 PRN IV NAUSEA AND/OR VOMITING Last administered on 09/17/16 09:20; Admin Dose 4 MG; Start 09/10/16 at 21:00 Metoclopramide HCl (Reglan) 5 mg Q6 IV Last administered on 09/18/16 05:24; Admin Dose 5 MG; Start 09/13/16 at 12:00 Famotidine (Pepcid Iv) 20 mg BID IV Last administered on 09/17/16 20:00; Admin Dose 20 MG; Start 09/13/16 at 21:00 Lorazepam (Ativan) 0.5 mg Q8H PRN IV Anxiety Last administered on 09/15/16 23: 10; Admin Dose 0.5 MG; Start 09/13/16 at 13:30 Hydromorphone HCl (Dilaudid) 1 mg Q4H PRN IV PAIN Last administered on 05:24; Admin Dose 1 MG; Start 09/14/16 at 09:00 Ferrous Sulfate (Feosol Liquid Cup) 300 mg DAILY NGT Last administered on 09:03; Admin Dose 300 MG; Start 09/14/16 at 09:00 DAYLIN SHAVER NP Sep 18, 2016 08:53
[2016-09-18] MEDS: FAMOTIDINE 20 MG INJ IV SCH ×2 (09:19→21:38)
[2016-09-18] MEDS: FERROUS SULFATE 60 MG/ML 5ML CUP NGT SCH (09:19)
[2016-09-18] MEDS: LACTOBACILLUS RHAMNOSUS CAP GTB SCH ×2 (09:19→21:38)
[2016-09-18] MEDS: MULTIVITAMINS 5 ML CUP GTB SCH (09:19)
--- NOTE | 2016-09-18 10:02 | CONS ---
Date/Time of Note Date/Time of Note DATE: 09/18/16 TIME: 09:59 Assessment/Plan Assessment/Plan Additional Assessment/Plan Ventilator settings; patient currently on CPAP with pressure support of 10, 20% FiO2. Assessment and recommendations; 1. Patient admitted with left lower lobe pneumonia/atelectasis status post bronchoscopy with removal of mucous plug from the left lower lobe with marked clinical improvement. Patient off antibiotics now. 2. Muscular dystrophy. Current treatment for now, give the patient trial of 20% cool aerosol via tracheostomy as tolerated for a couple of hours daily. Patient however needs to be on a home ventilator at least nocturnally on CPAP mode. Currently awaiting transfer to a rehab facility. I did have a detailed discussion the patient's mother at bedside and answered all her questions. Consultation Date/Type/Reason Admit Date/Time Sep 08, 2016 at 15:10 Initial Consult Date 09/08/16 Type of Consultation: Pulmonary/critical care Referring Provider: SY VENTURA 24 HR Interval Summary Free Text/Dictation Patient condition is stable. Denies any shortness of breath, chest congestion. Any nausea. General examination; young male, on ventilator via tracheostomy. Awake and alert. Currently in no distress. Exam/Review of Systems Vital Signs Vitals Vital Signs Date Time Temp Pulse Resp B/P Pulse Ox O2 Delivery O2 Flow Rate FiO2 09/18/16 08:51 98 100 30 09/18/16 06:00 15 126/87 CPAP 09/18/16 04:00 98.4 Intake and Output 09/17/16 09/17/16 09/18/16 15:00 23:00 07:00 Intake Total 160 ml 500 ml 450 ml Output Total 500 ml 700 ml 250 ml Balance -340 ml -200 ml 200 ml Exam HEENT examination; supple neck, no JVD. Tracheostomy in place with clean insertion site. No thyromegaly. Chest examination; clear to auscultation bilaterally. S1-S2 audible, no murmurs. Regular rhythm. Abdomen examination; soft, nondistended. Nontender. G-tube in place. Bowel sounds audible. Extremity examination; no peripheral edema. WHITE SUGAR BOILER examination; patient is stable quadriplegia able to move fingers of both hands to some extent. Results Result Diagram: 09/18/16 0437 09/18/16 0437 Results 24 hrs Laboratory Tests Test 09/18/16 04:37 Anion Gap 13 Basophils # 0.0 Basophils % 0.6 Blood Urea Nitrogen 25 H Calcium Level 9.8 Carbon Dioxide Level 33 H Chloride Level 100 Creatinine 0.25 L Eosinophils # 0.5 Eosinophils % 7.0 Glucose Level 99 Hematocrit 29.7 L Hemoglobin 9.2 L Lymphocytes # 1.8 Lymphocytes % 27.6 Magnesium Level 1.8 Mean Corpuscular Hemoglobin 28.0 L Mean Corpuscular Hemoglobin Concent 31.0 L Mean Corpuscular Volume 90.5 Mean Platelet Volume 10.1 Monocytes # 0.4 Monocytes % 6.7 Neutrophils # 3.7 Neutrophils % 57.8 Nucleated Red Blood Cells # 0.0 Nucleated Red Blood Cells % 0.0 Phosphorus Level 4.1 Platelet Count 310 Potassium Level 4.8 Red Blood Count 3.28 L Red Cell Distribution Width 13.8 Sodium Level 141 White Blood Count 6.5 Medications Medications Current Medications Multivitamins (Thera-Plus) 5 ml DAILY GTB Last administered on 09/18/16 09:19 ; Admin Dose 5 ML; Start 09/11/16 at 09:00 Lactobacillus Acidophilus/ Rhamnosus (Culturelle) 1 cap BID GTB Last administered on 09/18/16 09:19; Admin Dose 1 CAP; Start 09/10/16 at 21:00 Ondansetron HCl (Zofran Inj) 4 mg Q4 PRN IV NAUSEA AND/OR VOMITING Last administered on 09/17/16 09:20; Admin Dose 4 MG; Start 09/10/16 at 21:00 Metoclopramide HCl (Reglan) 5 mg Q6 IV Last administered on 09/18/16 05:24; Admin Dose 5 MG; Start 09/13/16 at 12:00 Famotidine (Pepcid Iv) 20 mg BID IV Last administered on 09/18/16 09:19; Admin Dose 20 MG; Start 09/13/16 at 21:00 Lorazepam (Ativan) 0.5 mg Q8H PRN IV Anxiety Last administered on 09/15/16 23: 10; Admin Dose 0.5 MG; Start 09/13/16 at 13:30 Hydromorphone HCl (Dilaudid) 1 mg Q4H PRN IV PAIN Last administered on 09:20; Admin Dose 1 MG; Start 09/14/16 at 09:00 Ferrous Sulfate (Feosol Liquid Cup) 300 mg DAILY NGT Last administered on t 09:19; Admin Dose 300 MG; Start 09/14/16 at 09:00 SY VENTURA Sep 18, 2016 10:02
[2016-09-18] MEDS: ONDANSETRON 4 MG INJ IV PRN (11:37)
--- NOTE | 2016-09-18 14:32 | CONS ---
Date/Time of Note Date/Time of Note DATE: 09/18/16 TIME: 14:28 Assessment/Plan Assessment/Plan Additional Assessment/Plan - SIRS vs early sepsis d/t probable PNA. Fever, tachycardia and mild leukocytosis at [facility] has resolved - Left lower lobe pneumonia/atelectasis/mucus plug. S/p bronchoscopy 09/09/16 - Stenotrophomonas in the airway, possible colonization - completed 7 day course of Bactrim (09/08/16-09/15/16) - Chronic respiratory failure s/p trach 07/2016 - Recent Hx severe PNA and bronch at in July 2016. - Dysphagia s/p g tube 07/2016 - Duchenne muscular dystrophy Recommendations: - Monitor off abx - Continue probiotic - Will sign-off now. Consultation Date/Type/Reason Admit Date/Time Sep 08, 2016 at 15:10 Initial Consult Date 09/08/16 Type of Consultation: Infectious Diseases Referring Provider: SY VENTURA 24 HR Interval Summary Free Text/Dictation No new positive cultures. D/W RN. No new issues. Awaiting transfer to a subacute closer to the family's home in [facility]. Exam/Review of Systems Vital Signs Vitals Vital Signs Date Time Temp Pulse Resp B/P Pulse Ox O2 Delivery O2 Flow Rate FiO2 09/18/16 13:40 88 21 100 30 09/18/16 06:00 126/87 CPAP 09/18/16 04:00 98.4 Intake and Output 09/17/16 09/17/16 09/18/16 14:59 22:59 06:59 Intake Total 210 ml 450 ml 500 ml Output Total 500 ml 700 ml 250 ml Balance -290 ml -250 ml 250 ml Exam Constitutional: alert, frail, oriented Head: atraumatic, normocephalic ENMT: other (trach midline and intact on ventilator support; CPAP mode) Neck: supple Respiratory: Essentially clear to auscultation; no wheezing or use of accessory muscles. Cardiovascular: regular rate and rhythm, normal S1, S2 Gastrointestinal: bowel sounds, non-tender, other (G tube with TF currently on hold), soft Extremities: normal pulses, other (atrophy noted and trace swelling on Right foot), No clubbing, No cyanosis Neurological: nl mental status, other (quadriplegic) Skin: nl turgor, No rash or lesions Results Result Diagram: 09/18/16 0437 09/18/16 0437 Results 24 hrs Laboratory Tests Test 09/18/16 04:37 Anion Gap 13 Basophils # 0.0 Basophils % 0.6 Blood Urea Nitrogen 25 H Calcium Level 9.8 Carbon Dioxide Level 33 H Chloride Level 100 Creatinine 0.25 L Eosinophils # 0.5 Eosinophils % 7.0 Glucose Level 99 Hematocrit 29.7 L Hemoglobin 9.2 L Lymphocytes # 1.8 Lymphocytes % 27.6 Magnesium Level 1.8 Mean Corpuscular Hemoglobin 28.0 L Mean Corpuscular Hemoglobin Concent 31.0 L Mean Corpuscular Volume 90.5 Mean Platelet Volume 10.1 Monocytes # 0.4 Monocytes % 6.7 Neutrophils # 3.7 Neutrophils % 57.8 Nucleated Red Blood Cells # 0.0 Nucleated Red Blood Cells % 0.0 Phosphorus Level 4.1 Platelet Count 310 Potassium Level 4.8 Red Blood Count 3.28 L Red Cell Distribution Width 13.8 Sodium Level 141 White Blood Count 6.5 Medications Medications Current Medications Multivitamins (Thera-Plus) 5 ml DAILY GTB Last administered on 09/18/16 09:19 ; Admin Dose 5 ML; Start 09/11/16 at 09:00 Lactobacillus Acidophilus/ Rhamnosus (Culturelle) 1 cap BID GTB Last administered on 09/18/16 09:19; Admin Dose 1 CAP; Start 09/10/16 at 21:00 Ondansetron HCl (Zofran Inj) 4 mg Q4 PRN IV NAUSEA AND/OR VOMITING Last administered on 09/18/16 11:37; Admin Dose 4 MG; Start 09/10/16 at 21:00 Metoclopramide HCl (Reglan) 5 mg Q6 IV Last administered on 09/18/16 11:37; Admin Dose 5 MG; Start 09/13/16 at 12:00 Famotidine (Pepcid Iv) 20 mg BID IV Last administered on 09/18/16 09:19; Admin Dose 20 MG; Start 09/13/16 at 21:00 Lorazepam (Ativan) 0.5 mg Q8H PRN IV Anxiety Last administered on 09/15/16 23: 10; Admin Dose 0.5 MG; Start 09/13/16 at 13:30 Hydromorphone HCl (Dilaudid) 1 mg Q4H PRN IV PAIN Last administered on 14:11; Admin Dose 1 MG; Start 09/14/16 at 09:00 Ferrous Sulfate (Feosol Liquid Cup) 300 mg DAILY NGT Last administered on 09:19; Admin Dose 300 MG; Start 09/14/16 at 09:00 MARI CARBALLO Sep 18, 2016 14:32
[2016-09-18] MEDS: LORAZEPAM 2 MG INJ IV PRN (23:11)
[2016-09-19] VITALS (30 sets, daily range): BP systolic 116–141; BP diastolic 64–111; PULSE 73–113; RESP 12–28
[2016-09-19] MEDS: HYDROmorphONE 1 MG/ML SYG IV PRN ×5 (04:48→22:00)
[2016-09-19] MEDS: METOCLOPRAMIDE 10 MG INJ IV SCH ×4 (05:20→23:32)
--- NOTE | 2016-09-19 08:29 | PN ---
Date/Time of Note Date/Time of Note DATE: 09/19/16 TIME: 08:25 Assessment/Plan VTE Prophylaxis VTE Prophylaxis Intervention: SCD's Lines/Catheters IV C[facility]ter Type (from [facility] Saline Lock Urinary Cath still in place: No Assessment/Plan Chief Complaint/Hosp Course 1. Left lower lobe pneumonia/atelectasis. Status post bronchoscopy with chest x-ray findings compatible with persistent left lower lobe atelectasis. Continue inhaled bronchodilators. Chest physical therapy as per pulmonary recommendations. S/P antibiotics as per infectious diseases. 2. Chronic respiratory failure. Status post tracheostomy. Continue inhaled bronchodilators. Currently on CPAP. 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 Continue mechanical ventilator management as per pulmonary recommendations. 4. Normocytic, normochromic anemia. Will monitor the H and H closely. Iron panel showing iron deficiency. 5. Fluid, electrolytes and nutrition. Continue G-tube feedings as tolerated. 6. Deep venous thrombosis prophylaxis. Bilateral sequential compression devices. 7. Gastrointestinal prophylaxis. Histamine 2-receptor blockers. 8. PLAN: Continue routine prokinetics. The patient remains on CPAP. Family requesting transfer to a rehab facility close to the patient's residence Vs discharge home once stable. Case management aware. Case discussed with Dr. Rivera. Critical care time 35 minutes. Problems: Subjective 24 Hr Interval Summary Free Text/Dictation The patient currently on CPAP. Tolerating well. Exam/Review of Systems Vital Signs Vitals Vital Signs Date Time Temp Pulse Resp B/P Pulse Ox O2 Delivery O2 Flow Rate FiO2 09/19/16 08:00 80 14 118/81 96 09/19/16 05:10 30 09/19/16 05:00 CPAP Mechanical Ventilator 09/19/16 04:00 98.8 Intake and Output 09/18/16 09/18/16 09/19/16 15:00 23:00 07:00 Intake Total 560 ml 300 ml 450 ml Output Total 150 ml 400 ml 250 ml Balance 410 ml -100 ml 200 ml Exam GENERAL: This is thin, frail-looking male lying in bed in no apparent distress. HEENT: Head normocephalic and atraumatic. Eyes: Anicteric sclerae. Conjunctivae clear. ENT: Nasal septum is midline. Oral mucosa is dry. NECK: Tracheostomy in midline. RESPIRATORY: Bilaterally diminished breath sounds. On CPAP. CARDIAC: Regular rate and rhythm. No obvious murmurs heard. ABDOMEN: Scaphoid. Left upper quadrant G-tube in place. GENITOURINARY: Deferred. EXTREMITIES: Flaccid and with minimal movement in bilateral upper extremities. Severe muscle wasting of bilateral upper and lower extremities. No edema. Peripheral pulses palpable. NEUROLOGIC: The patient is awake and alert. Results Result Diagram: 09/18/167 09/18/167 Medications Medications Current Medications Multivitamins (Thera-Plus) 5 ml DAILY GTB Last administered on 09/18/16 09:19 ; Admin Dose 5 ML; Start 09/11/16 at 09:00 Lactobacillus Acidophilus/ Rhamnosus (Culturelle) 1 cap BID GTB Last administered on 09/18/16 21:38; Admin Dose 1 CAP; Start 09/10/16 at 21:00 Ondansetron HCl (Zofran Inj) 4 mg Q4 PRN IV NAUSEA AND/OR VOMITING Last administered on 09/18/16 11:37; Admin Dose 4 MG; Start 09/10/16 at 21:00 Metoclopramide HCl (Reglan) 5 mg Q6 IV Last administered on 09/19/16 05:20; Admin Dose 5 MG; Start 09/13/16 at 12:00 Famotidine (Pepcid Iv) 20 mg BID IV Last administered on 09/18/16 21:38; Admin Dose 20 MG; Start 09/13/16 at 21:00 Lorazepam (Ativan) 0.5 mg Q8H PRN IV Anxiety Last administered on 09/18/16 23: 11; Admin Dose 0.5 MG; Start 09/13/16 at 13:30 Hydromorphone HCl (Dilaudid) 1 mg Q4H PRN IV PAIN Last administered on 04:48; Admin Dose 1 MG; Start 09/14/16 at 09:00 Ferrous Sulfate (Feosol Liquid Cup) 300 mg DAILY NGT Last administered on 09:19; Admin Dose 300 MG; Start 09/14/16 at 09:00 DAYLIN SHAVER NP Sep 19, 2016 08:29
[2016-09-19] MEDS: MULTIVITAMINS 5 ML CUP GTB SCH (09:13)
[2016-09-19] MEDS: LACTOBACILLUS RHAMNOSUS CAP GTB SCH ×2 (09:13→20:56)
[2016-09-19] MEDS: FERROUS SULFATE 60 MG/ML 5ML CUP NGT SCH (09:13)
[2016-09-19] MEDS: FAMOTIDINE 20 MG INJ IV SCH ×2 (09:26→20:56)
--- NOTE | 2016-09-19 10:42 | CONS ---
Date/Time of Note Date/Time of Note DATE: 09/19/16 TIME: 10:40 Assessment/Plan Assessment/Plan Additional Assessment/Plan Data settings; CPAP with pressure support of 6, 28% FiO2. Assessment and recommendations; 1. Patient admitted with left lower lobe pneumonia/atelectasis due to mucous plug status post bronchoscopy with marked overall improvement no. 2. Muscular dystrophy. Patient remains ventilator dependent. Continue current supportive care. Patient to undergo Passy-Florina valve trials today. He is awaiting transfer to rehab center. Consultation Date/Type/Reason Admit Date/Time Sep 08, 2016 at 15:10 Initial Consult Date 09/08/16 Type of Consultation: Pulmonary/critical care Referring Provider: SY VENTURA 24 HR Interval Summary Free Text/Dictation Patient condition stable. Slept well. Denies any shortness of breath. Any chest congestion. General examination; young male, currently in no distress awake and alert. On ventilator via tracheostomy. Exam/Review of Systems Vital Signs Vitals Vital Signs Date Time Temp Pulse Resp B/P Pulse Ox O2 Delivery O2 Flow Rate FiO2 09/19/16 09:25 87 09/19/16 08:00 14 118/81 96 09/19/16 08:00 98.3 09/19/16 05:10 30 09/19/16 05:00 CPAP Mechanical Ventilator Intake and Output 09/18/16 09/18/16 09/19/16 14:59 22:59 06:59 Intake Total 560 ml 300 ml 500 ml Output Total 150 ml 250 ml 400 ml Balance 410 ml 50 ml 100 ml Exam HEENT examination; supple neck, no JVD. No lymphadenopathy. Tracheostomy in place with clean insertion site. Chest examination; clear to auscultation bilaterally. S1-S2 audible, no murmurs. Regular rhythm. Abdomen examination; soft, nondistended. No organomegaly. G-tube in place. Bowel sounds audible. Extremity examination; no peripheral edema. CEO NA examination; patient able to move fingers in both hands. Results Result Diagram: 09/18/16 0437 09/18/16 0437 Medications Medications Current Medications Multivitamins (Thera-Plus) 5 ml DAILY GTB Last administered on 09/19/16t 09:13 ; Admin Dose 5 ML; Start 09/11/16 at 09:00 Lactobacillus Acidophilus/ Rhamnosus (Culturelle) 1 cap BID GTB Last administered on 09/19/16 09:13; Admin Dose 1 CAP; Start 09/10/16 at 21:00 Ondansetron HCl (Zofran Inj) 4 mg Q4 PRN IV NAUSEA AND/OR VOMITING Last administered on 09/18/16 11:37; Admin Dose 4 MG; Start 09/10/16 at 21:00 Metoclopramide HCl (Reglan) 5 mg Q6 IV Last administered on 09/19/16 05:20; Admin Dose 5 MG; Start 09/13/16 at 12:00 Famotidine (Pepcid Iv) 20 mg BID IV Last administered on 09/19/16 09:26; Admin Dose 20 MG; Start 09/13/16 at 21:00 Lorazepam (Ativan) 0.5 mg Q8H PRN IV Anxiety Last administered on 09/18/16 23: 11; Admin Dose 0.5 MG; Start 09/13/16 at 13:30 Hydromorphone HCl (Dilaudid) 1 mg Q4H PRN IV PAIN Last administered on 09:10; Admin Dose 1 MG; Start 09/14/16 at 09:00 Ferrous Sulfate (Feosol Liquid Cup) 300 mg DAILY NGT Last administered on 09:13; Admin Dose 300 MG; Start 09/14/16 at 09:00 SY VENTURA Sep 19, 2016 10:42
[2016-09-19] MEDS: IPRATROPIUM (HFA) 12.9 GM INHALER INH PRN ×2 (14:08→19:31)
[2016-09-19] MEDS: ALBUTEROL HFA 8 GM INHALER INH PRN ×2 (14:08→19:31)
[2016-09-19] MEDS: LORAZEPAM 2 MG INJ IV PRN (23:26)
[2016-09-20] VITALS (32 sets, daily range): BP systolic 112–170; BP diastolic 73–112; PULSE 72–121; RESP 14–26
[2016-09-20] MEDS: HYDROmorphONE 1 MG/ML SYG IV PRN ×5 (03:11→23:05)
[2016-09-20] MEDS: METOCLOPRAMIDE 10 MG INJ IV SCH ×3 (05:50→18:00)
[2016-09-20] MEDS: FERROUS SULFATE 60 MG/ML 5ML CUP NGT SCH (09:13)
[2016-09-20] MEDS: LACTOBACILLUS RHAMNOSUS CAP GTB SCH ×2 (09:13→20:02)
[2016-09-20] MEDS: FAMOTIDINE 20 MG INJ IV SCH ×2 (09:13→20:02)
[2016-09-20] MEDS: MULTIVITAMINS 5 ML CUP GTB SCH (09:13)
--- NOTE | 2016-09-20 10:19 | CONS ---
Date/Time of Note Date/Time of Note DATE: 09/20/16 TIME: 10:17 Assessment/Plan Assessment/Plan Additional Assessment/Plan Ventilator settings; patient on CPAP mode pressure support of 6, 30% FiO2. Assessment and recommendations; next 1. Patient with chronic respiratory failure due to muscular dystrophy. 2. Patient admitted to ICU for left lower lobe atelectasis and pneumonia status post bronchoscopy with clearing of mucous plug with marked clinical and radiological improvement. Continue current treatment. Patient awaiting transfer to rehab facility. Consultation Date/Type/Reason Admit Date/Time Sep 08, 2016 at 15:10 Initial Consult Date 09/08/16 Type of Consultation: Pulmonary/critical care Referring Provider: SY VENTURA 24 HR Interval Summary Free Text/Dictation Patient condition stable. Denies any chest congestion, nausea. Denies any shortness of breath. General examination; young male, on ventilator via tracheostomy currently in no distress. Exam/Review of Systems Vital Signs Vitals Vital Signs Date Time Temp Pulse Resp B/P Pulse Ox O2 Delivery O2 Flow Rate FiO2 09/20/16 08:00 85 09/20/16 06:00 21 137/83 99 Mechanical Ventilator 09/20/16 05:20 30 09/20/16 04:00 98.4 09/19/16 14:16 8.0 Intake and Output 09/19/16 09/19/16 09/20/16 15:00 23:00 07:00 Intake Total 2490 ml 550 ml Output Total 1300 ml 150 ml Balance 1190 ml 400 ml Exam HEENT examination; supple neck, no JVD. No lymphadenopathy. Tracheostomy in place with clean insertion site. Pharynx is clear. Next Chest examination; clear to auscultation bilaterally. S1-S2 audible, no murmurs. Regular rhythm. Abdomen examination; soft, G-tube in place. No organomegaly. Nontender. No nondistended. Extremity examination; no edema. MECHANICAL ENERGY ENGINEER examination; patient has stable finger movements involving both hands. Results Result Diagram: 09/18/16 0437 09/18/167 Medications Medications Current Medications Multivitamins (Thera-Plus) 5 ml DAILY GTB Last administered on 09/20/16t 09:13 ; Admin Dose 5 ML; Start 09/11/16 at 09:00 Lactobacillus Acidophilus/ Rhamnosus (Culturelle) 1 cap BID GTB Last administered on 09/20/16 09:13; Admin Dose 1 CAP; Start 09/10/16 at 21:00 Ondansetron HCl (Zofran Inj) 4 mg Q4 PRN IV NAUSEA AND/OR VOMITING Last administered on 09/18/16 11:37; Admin Dose 4 MG; Start 09/10/16 at 21:00 Metoclopramide HCl (Reglan) 5 mg Q6 IV Last administered on 09/20/16 05:50; Admin Dose 5 MG; Start 09/13/16 at 12:00 Famotidine (Pepcid Iv) 20 mg BID IV Last administered on 09/20/16 09:13; Admin Dose 20 MG; Start 09/13/16 at 21:00 Lorazepam (Ativan) 0.5 mg Q8H PRN IV Anxiety Last administered on 09/19/16 23: 26; Admin Dose 0.5 MG; Start 09/13/16 at 13:30 Hydromorphone HCl (Dilaudid) 1 mg Q4H PRN IV PAIN Last administered on 09:13; Admin Dose 1 MG; Start 09/14/16 at 09:00 Ferrous Sulfate (Feosol Liquid Cup) 300 mg DAILY NGT Last administered on 09:13; Admin Dose 300 MG; Start 09/14/16 at 09:00 SY VENTURA Sep 20, 2016 10:19
--- NOTE | 2016-09-20 13:06 | PN ---
Date/Time of Note Date/Time of Note DATE: 09/20/16 TIME: 13:02 Assessment/Plan VTE Prophylaxis VTE Prophylaxis Intervention: SCD's Lines/Catheters [facility]from [facility] Peripheral IV Urinary Cath still in place: No Assessment/Plan Chief Complaint/Hosp Course Assessment and plan 1. Left lower lobe pneumonia/atelectasis. Off of antibiotics . Patient status post bronchoscopy with removal of mucous plug. Improving 2. Chronic respiratory failure. Continue on O2 support. Continue pulmonology recommendations 3. Duchenne's muscular dystrophy. PT and OT to follow. Continue with supportive measures. 4. Fluids/electrolytes/nutrition. Continue on PEG tube feedings DVT prophylaxis: SCDs GERD prophylaxis: H2 sherlyn Disposition and plan: Appears to be improving at present. Awaiting placement. Follow-up with case management. Discussed plan of care with Dr. Harrington CRITICAL CARE TIME: 30 minutes Problems: Subjective 24 Hr Interval Summary Free Text/Dictation Comfortable at present. No apparent distress Exam/Review of Systems Vital Signs Vitals Vital Signs Date Time Temp Pulse Resp B/P Pulse Ox O2 Delivery O2 Flow Rate FiO2 09/20/16 11:35 99 8.0 35 09/20/16 11:35 105 20 Aerosol Mask T Tube 09/20/16 06:00 137/83 09/20/16 04:00 98.4 Intake and Output 09/19/16 09/19/16 09/20/16 14:59 22:59 06:59 Intake Total 2440 ml 600 ml Output Total 1150 ml 300 ml Balance 1290 ml 300 ml Exam General: No acute signs or symptoms of distress, cachectic and frail Eyes: pupils equal round, Anicteric sclera Neck: Tracheostomy in place Cardiac: S1, S2 auscultated, regular rhythm and rate Pulmonary: No coarse rhonchi or breathing auscultated GI: PEG tube in place. Extremities: No edema bilateral lower extremities. Noted with muscle wasting bilateral upper and lower extremities Skin: Clean dry and intact Neurologic: Alert to person place and time and situation Results Result Diagram: 09/18/16 0437 09/18/16 0437 Medications Medications Current Medications Multivitamins (Thera-Plus) 5 ml DAILY GTB Last administered on 09/20/16t 09:13 ; Admin Dose 5 ML; Start 09/11/16 at 09:00 Lactobacillus Acidophilus/ Rhamnosus (Culturelle) 1 cap BID GTB Last administered on 09/20/16 09:13; Admin Dose 1 CAP; Start 09/10/16 at 21:00 Ondansetron HCl (Zofran Inj) 4 mg Q4 PRN IV NAUSEA AND/OR VOMITING Last administered on 09/18/16 11:37; Admin Dose 4 MG; Start 09/10/16 at 21:00 Metoclopramide HCl (Reglan) 5 mg Q6 IV Last administered on 09/20/16 05:50; Admin Dose 5 MG; Start 09/13/16 at 12:00 Famotidine (Pepcid Iv) 20 mg BID IV Last administered on 09/20/16 09:13; Admin Dose 20 MG; Start 09/13/16 at 21:00 Lorazepam (Ativan) 0.5 mg Q8H PRN IV Anxiety Last administered on 09/19/16 23: 26; Admin Dose 0.5 MG; Start 09/13/16 at 13:30 Hydromorphone HCl (Dilaudid) 1 mg Q4H PRN IV PAIN Last administered on 09:13; Admin Dose 1 MG; Start 09/14/16 at 09:00 Ferrous Sulfate (Feosol Liquid Cup) 300 mg DAILY NGT Last administered on 09:13; Admin Dose 300 MG; Start 09/14/16 at 09:00 KATELYN ELENA Sep 20, 2016 13:06
[2016-09-21] VITALS (33 sets, daily range): BP systolic 112–143; BP diastolic 69–100; PULSE 72–105; RESP 12–22
[2016-09-21] MEDS: METOCLOPRAMIDE 10 MG INJ IV SCH ×5 (00:01→23:57)
[2016-09-21] MEDS: LORAZEPAM 2 MG INJ IV PRN (00:02)
[2016-09-21] MEDS: HYDROmorphONE 1 MG/ML SYG IV PRN ×5 (03:53→22:30)
[2016-09-21 05:43] LABS: ADD SCAN DIFF NO
[2016-09-21 05:47] LABS: BASOPHIL # 0.1 10^3/ul (0.0-0.1); BASOPHILS % 0.8 % (0.0-2.0); EOSINOPHILS # 0.4 10^3/ul (0.0-0.5); EOSINOPHILS % 5.5 % (0.0-7.0); HEMATOCRIT 29.5 % (42.0-52.0); HEMOGLOBIN 9.6 g/dl (14.0-18.0); LYMPHOCYTES # 1.7 10^3/ul (0.8-2.9); LYMPHOCYTES % 26.8 % (15.0-51.0); MEAN CORPUSCULAR HGB CONC 32.5 g/dl (32.0-37.0); MEAN CORPUSCULAR VOLUME 89.1 fl (82.0-101.0); MEAN PLATELET VOLUME 10.2 fl (7.4-10.4); MONOCYTE # 0.4 10^3/ul (0.3-0.9); MONOCYTES % 6.1 % (0.0-11.0); NEUTROPHIL # 3.9 10^3/ul (1.6-7.5); NEUTROPHILS % 60.5 % (39.0-77.0); PLATELET COUNT 288 10^3/UL (140-415); RED BLOOD COUNT 3.31 10^6/ul (4.70-6.10); RED CELL DISTRIBUTION WIDTH 13.2 % (11.5-14.5); WHITE BLOOD COUNT 6.4 10^3/ul (4.8-10.8)
[2016-09-21 05:57] LABS: POTASSIUM 4.5 mmol/L (3.5-5.1)
[2016-09-21 05:59] LABS: CREATININE 0.23 mg/dl (0.61-1.24)
[2016-09-21 06:00] LABS: CALCIUM 9.6 mg/dl (8.4-10.2)
[2016-09-21] MEDS: NACL 0.9% 3 ML SYG IV SCH (08:55)
[2016-09-21] MEDS: FERROUS SULFATE 60 MG/ML 5ML CUP NGT SCH (08:55)
[2016-09-21] MEDS: MULTIVITAMINS 5 ML CUP GTB SCH (08:55)
[2016-09-21] MEDS: FAMOTIDINE 20 MG INJ IV SCH ×2 (08:55→20:44)
[2016-09-21] MEDS: LACTOBACILLUS RHAMNOSUS CAP GTB SCH ×2 (08:55→20:44)
--- NOTE | 2016-09-21 10:37 | CONS ---
Date/Time of Note Date/Time of Note DATE: 09/21/16 TIME: 10:20 Assessment/Plan Assessment/Plan Additional Assessment/Plan Assessment and recommendation; 1. Admitted with left lower lobe pneumonia/atelectasis due to mucus plugging status post bronchoscopy with marked clinical and radiological improvement. 2. Muscular dystrophy. Currently doing very well on CPAP mode. With intermittent cool aerosol trials. Continue current treatment patient awaiting transfer to rehab center. Consultation Date/Type/Reason Admit Date/Time Sep 08, 2016 at 15:10 Initial Consult Date 09/08/16 Type of Consultation: Pulmonary/critical care Referring Provider: SY VENTURA 24 HR Interval Summary Free Text/Dictation Patient condition is stable. Remains awake and alert. Given cool aerosol trial yesterday with the patient handled well for several hours. Next General examination; young male currently in no distress on ventilator via trachea via tracheostomy Exam/Review of Systems Vital Signs Vitals Vital Signs Date Time Temp Pulse Resp B/P Pulse Ox O2 Delivery O2 Flow Rate FiO2 09/21/16 09:30 92 18 100 30 09/21/16 09:00 113/70 CPAP 09/21/16 08:00 97.9 09/20/16 11:35 8.0 Intake and Output 09/20/16 09/20/16 09/21/16 15:00 23:00 07:00 Intake Total 500 ml 500 ml 600 ml Output Total 100 ml 525 ml 200 ml Balance 400 ml -25 ml 400 ml Exam HEENT examination; supple neck, tracheostomy in place with clean insertion site. No other abnormalities found. Chest examination; clear to auscultation bilaterally. S1-S2 audible, no murmurs. Regular rhythm. Abdomen examination; soft, nondistended. No organomegaly. Bowel sounds audible. G-tube in place. Extremity examination; no peripheral edema. Pulses 2+ bilaterally. [employer] examination; patient still able to move fingers in both hands. Results Result Diagram: 09/21/1652109/21/16 05 Results 24 hrs Laboratory Tests Test 09/21/16 05:22 09/21/16 05:29 Basophils # 0.1 Basophils % 0.8 Eosinophils # 0.4 Eosinophils % 5.5 Hematocrit 29.5 L Hemoglobin 9.6 L Lymphocytes # 1.7 Lymphocytes % 26.8 Mean Corpuscular Hemoglobin 29.0 Mean Corpuscular Hemoglobin Concent 32.5 Mean Corpuscular Volume 89.1 Mean Platelet Volume 10.2 Monocytes # 0.4 Monocytes % 6.1 Neutrophils # 3.9 Neutrophils % 60.5 Nucleated Red Blood Cells # 0.0 Nucleated Red Blood Cells % 0.0 Platelet Count 288 Red Blood Count 3.31 L Red Cell Distribution Width 13.2 White Blood Count 6.4 Anion Gap 16 Blood Urea Nitrogen 23 H Calcium Level 9.6 Carbon Dioxide Level 31 Chloride Level 98 Creatinine 0.23 L Glucose Level 109 Potassium Level 4.5 Sodium Level 140 Medications Medications Current Medications Multivitamins (Thera-Plus) 5 ml DAILY GTB Last administered on 09/21/16 08:55 ; Admin Dose 5 ML; Start 09/11/16 at 09:00 Lactobacillus Acidophilus/ Rhamnosus (Culturelle) 1 cap BID GTB Last administered on 09/21/16 08:55; Admin Dose 1 CAP; Start 09/10/16 at 21:00 Ondansetron HCl (Zofran Inj) 4 mg Q4 PRN IV NAUSEA AND/OR VOMITING Last administered on 09/18/16 11:37; Admin Dose 4 MG; Start 09/10/16 at 21:00 Metoclopramide HCl (Reglan) 5 mg Q6 IV Last administered on 09/21/16 06:26; Admin Dose 5 MG; Start 09/13/16 at 12:00 Famotidine (Pepcid Iv) 20 mg BID IV Last administered on 09/21/16 08:55; Admin Dose 20 MG; Start 09/13/16 at 21:00 Lorazepam (Ativan) 0.5 mg Q8H PRN IV Anxiety Last administered on 09/21/16 00: 02; Admin Dose 0.5 MG; Start 09/13/16 at 13:30 Hydromorphone HCl (Dilaudid) 1 mg Q4H PRN IV PAIN Last administered on 08:11; Admin Dose 1 MG; Start 09/14/16 at 09:00 Ferrous Sulfate (Feosol Liquid Cup) 300 mg DAILY NGT Last administered on 08:55; Admin Dose 300 MG; Start 09/14/16 at 09:00 SY VENTURA Sep 21, 2016 10:35
--- NOTE | 2016-09-21 12:13 | PN ---
Date/Time of Note Date/Time of Note DATE: 09/21/16 TIME: 12:10 Assessment/Plan VTE Prophylaxis VTE Prophylaxis Intervention: SCD's Lines/Catheters IV Catheter Type (from [facility]): Saline Lock Urinary Cath still in place: No Assessment/Plan Chief Complaint/Hosp Course Assessment and plan 1. Left lower lobe pneumonia/atelectasis. Off of antibiotics . Patient status post bronchoscopy with removal of mucous plug. Improved. cont pulm hygiene 2. Chronic respiratory failure. Continue on O2 support. Continue pulmonology recommendations 3. Duchenne's muscular dystrophy. PT and OT following. Continue with supportive measures. 4. Fluids/electrolytes/nutrition. Continue on PEG tube feedings DVT prophylaxis: SCDs GERD prophylaxis: H2 sherlyn Disposition and plan: Appears to be improving at present. Awaiting placement. Follow-up with case management. continue supportive care Discussed plan of care with Dr. Harrington Problems: Subjective 24 Hr Interval Summary Free Text/Dictation no s/s of distress. comfortable at present Exam/Review of Systems Vital Signs Vitals Vital Signs Date Time Temp Pulse Resp B/P Pulse Ox O2 Delivery O2 Flow Rate FiO2 09/21/16 11:00 73 14 117/88 100 CPAP 09/21/16 09:30 30 09/21/16 08:00 97.9 09/20/16 11:35 8.0 Intake and Output 09/20/16 09/20/16 09/21/16 15:00 23:00 07:00 Intake Total 500 ml 500 ml 600 ml Output Total 100 ml 525 ml 200 ml Balance 400 ml -25 ml 400 ml Exam General: No acute signs or symptoms of distress, cachectic and frail Eyes: pupils equal round, Anicteric sclera Neck: Tracheostomy in place Cardiac: S1, S2 auscultated, regular rhythm and rate Pulmonary: No coarse rhonchi or breathing auscultated GI: PEG tube in place. Extremities: No edema bilateral lower extremities. Noted with muscle wasting bilateral upper and lower extremities Skin: Clean dry and intact Neurologic: Alert to person place and time and situation Results Result Diagram: 09/21/16 0522 09/21/16 0529 Results 24 hrs Laboratory Tests Test 09/21/16 05:22 09/21/16 05:29 Basophils # 0.1 Basophils % 0.8 Eosinophils # 0.4 Eosinophils % 5.5 Hematocrit 29.5 L Hemoglobin 9.6 L Lymphocytes # 1.7 Lymphocytes % 26.8 Mean Corpuscular Hemoglobin 29.0 Mean Corpuscular Hemoglobin Concent 32.5 Mean Corpuscular Volume 89.1 Mean Platelet Volume 10.2 Monocytes # 0.4 Monocytes % 6.1 Neutrophils # 3.9 Neutrophils % 60.5 Nucleated Red Blood Cells # 0.0 Nucleated Red Blood Cells % 0.0 Platelet Count 288 Red Blood Count 3.31 L Red Cell Distribution Width 13.2 White Blood Count 6.4 Anion Gap 16 Blood Urea Nitrogen 23 H Calcium Level 9.6 Carbon Dioxide Level 31 Chloride Level 98 Creatinine 0.23 L Glucose Level 109 Potassium Level 4.5 Sodium Level 140 Medications Medications Current Medications Multivitamins (Thera-Plus) 5 ml DAILY GTB Last administered on 09/21/16 08:55 ; Admin Dose 5 ML; Start 09/11/16 at 09:00 Lactobacillus Acidophilus/ Rhamnosus (Culturelle) 1 cap BID GTB Last administered on 09/21/16 08:55; Admin Dose 1 CAP; Start 09/10/16 at 21:00 Ondansetron HCl (Zofran Inj) 4 mg Q4 PRN IV NAUSEA AND/OR VOMITING Last administered on 09/18/16 11:37; Admin Dose 4 MG; Start 09/10/16 at 21:00 Metoclopramide HCl (Reglan) 5 mg Q6 IV Last administered on 09/21/16 11:37; Admin Dose 5 MG; Start 09/13/16 at 12:00 Famotidine (Pepcid Iv) 20 mg BID IV Last administered on 09/21/16 08:55; Admin Dose 20 MG; Start 09/13/16 at 21:00 Lorazepam (Ativan) 0.5 mg Q8H PRN IV Anxiety Last administered on 09/21/16 00: 02; Admin Dose 0.5 MG; Start 09/13/16 at 13:30 Hydromorphone HCl (Dilaudid) 1 mg Q4H PRN IV PAIN Last administered on 08:11; Admin Dose 1 MG; Start 09/14/16 at 09:00 Ferrous Sulfate (Feosol Liquid Cup) 300 mg DAILY NGT Last administered on 08:55; Admin Dose 300 MG; Start 09/14/16 at 09:00 KATELYN ELENA Sep 21, 2016 12:13
[2016-09-21] MEDS: IPRATROPIUM (HFA) 12.9 GM INHALER INH PRN ×2 (14:41→19:47)
[2016-09-21] MEDS: ALBUTEROL HFA 8 GM INHALER INH PRN ×2 (14:41→19:47)
[2016-09-21] MEDS: ONDANSETRON 4 MG INJ IV PRN (16:07)
[2016-09-22] VITALS (34 sets, daily range): BP systolic 116–147; BP diastolic 65–97; PULSE 67–98; RESP 8–21
[2016-09-22] MEDS: HYDROmorphONE 1 MG/ML SYG IV PRN ×5 (02:54→21:03)
[2016-09-22] MEDS: METOCLOPRAMIDE 10 MG INJ IV SCH ×4 (05:57→23:33)
[2016-09-22] MEDS: FAMOTIDINE 20 MG INJ IV SCH ×2 (08:25→20:52)
[2016-09-22] MEDS: LACTOBACILLUS RHAMNOSUS CAP GTB SCH ×2 (08:26→20:52)
[2016-09-22] MEDS: MULTIVITAMINS 5 ML CUP GTB SCH (08:26)
[2016-09-22] MEDS: FERROUS SULFATE 60 MG/ML 5ML CUP NGT SCH (08:26)
--- NOTE | 2016-09-22 10:54 | CONS ---
Date/Time of Note Date/Time of Note DATE: 09/22/16 TIME: 10:52 Assessment/Plan Assessment/Plan Additional Assessment/Plan Ventilator settings; patient is on CPAP mode with pressure support of 6. 30% FiO2. Next Assessment and recommendations; 1. Patient admitted with right upper lobe pneumonia/atelectasis due to mucous plug status post bronchoscopy with marked clinical improvement. 2. Muscular dystrophy. Patient remains ventilator dependent although on very low pressure support. He is tachypneic on T piece. Patient however is able to handle T piece for a few hours every day. Patient awaiting discharge to rehab center. Consultation Date/Type/Reason Admit Date/Time Sep 08, 2016 at 15:10 Initial Consult Date 09/08/16 Type of Consultation: Pulmonary/critical care Referring Provider: SY VENTURA 24 HR Interval Summary Free Text/Dictation Patient condition remains stable. Has remained hemodynamically stable. General examination; young male, on ventilator via tracheostomy currently in no distress. Awake and alert. Exam/Review of Systems Vital Signs Vitals Vital Signs Date Time Temp Pulse Resp B/P Pulse Ox O2 Delivery O2 Flow Rate FiO2 09/22/16 10:00 86 12 132/84 98 CPAP 09/22/16 09:42 30 09/22/16 08:00 98.1 09/21/16 17:16 8.0 Intake and Output 09/21/16 09/21/16 09/22/16 15:00 23:00 07:00 Intake Total 550 ml 500 ml 600 ml Output Total 450 ml 575 ml 200 ml Balance 100 ml -75 ml 400 ml Exam HEENT examination; supple neck, no JVD. No lymphadenopathy. Midline trachea. No thyromegaly. Tracheostomy in place with clean insertion site. Pupils are midsize reactive to light. Chest examination; clear to auscultation. S1-S2 audible, no murmurs. Regular rhythm. Abdomen examination; soft, nontender. G-tube in place. No organomegaly. Bowel sounds audible. Extremity examination; no peripheral edema. INTELLIGENCE INTERN examination; patient still able to move fingers in both hands to some extent. Results Result Diagram: 09/21/16 0522 09/21/16 0529 Medications Medications Current Medications Multivitamins (Thera-Plus) 5 ml DAILY GTB Last administered on 09/22/16t 08:26; Admin Dose 5 ML; Start 2/18/17 at 09:00 Lactobacillus Acidophilus/ Rhamnosus (Culturelle) 1 cap BID GTB Last administered on 09/22/16 08:26; Admin Dose 1 CAP; Start 09/10/16 at 21:00 Ondansetron HCl (Zofran Inj) 4 mg Q4 PRN IV NAUSEA AND/OR VOMITING Last administered on 09/21/16 16:07; Admin Dose 4 MG; Start 09/10/16 at 21:00 Metoclopramide HCl (Reglan) 5 mg Q6 IV Last administered on 09/22/16 05:57; Admin Dose 5 MG; Start 09/13/16 at 12:00 Famotidine (Pepcid Iv) 20 mg BID IV Last administered on 09/22/16 08:25; Admin Dose 20 MG; Start 09/13/16 at 21:00 Lorazepam (Ativan) 0.5 mg Q8H PRN IV Anxiety Last administered on 09/21/16 00: 02; Admin Dose 0.5 MG; Start 09/13/16 at 13:30 Hydromorphone HCl (Dilaudid) 1 mg Q4H PRN IV PAIN Last administered on 08:25; Admin Dose 1 MG; Start 09/14/16 at 09:00 Ferrous Sulfate (Feosol Liquid Cup) 300 mg DAILY NGT Last administered on 08:26; Admin Dose 300 MG; Start 09/14/16 at 09:00 SY VENTURA Sep 22, 2016 10:54
[2016-09-22] MEDS: NACL 0.9% 3 ML SYG IV SCH (13:54)
--- NOTE | 2016-09-22 14:50 | PN ---
Date/Time of Note Date/Time of Note DATE: 09/22/16 TIME: 14:48 Assessment/Plan VTE Prophylaxis VTE Prophylaxis Intervention: SCD's Lines/Catheters IV [facility]ter Type (from [facility]): Saline Lock Urinary Cath still in place: No Assessment/Plan Chief Complaint/Hosp Course Assessment and plan 1. Left lower lobe pneumonia/atelectasis. Off of antibiotics . Patient status post bronchoscopy with removal of mucous plug. No respiratory distress at this time 2. Chronic respiratory failure. Continue on O2 support. Continue pulmonology recommendations. Continue on T-Piece o2 as tolerated 3. Duchenne's muscular dystrophy. Continue with supportive measures. Physical therapy following the patient 4. Fluids/electrolytes/nutrition. Continue on PEG tube feedings DVT prophylaxis: SCDs GERD prophylaxis: H2 sherlyn Disposition and plan: Appears to be improving at present. Awaiting placement. Follow-up with case management. Transfer to telemetry once bed available Discussed plan of care with Dr. Harrington CRITICAL CARE TIME: 30 minutes Problems: Subjective 24 Hr Interval Summary Free Text/Dictation Comfortable at present. No apparent distress. Exam/Review of Systems Vital Signs Vitals Vital Signs Date Time Temp Pulse Resp B/P Pulse Ox O2 Delivery O2 Flow Rate FiO2 09/22/16 14:00 86 17 133/88 90 CPAP 09/22/16 13:17 8.0 35 09/22/16 12:00 98.4 Intake and Output 09/21/16 09/21/16 09/22/16 15:00 23:00 07:00 Intake Total 550 ml 500 ml 600 ml Output Total 450 ml 575 ml 200 ml Balance 100 ml -75 ml 400 ml Exam General: No acute signs or symptoms of distress, cachectic and frail. Comfortable at present Eyes: pupils equal round, Anicteric sclera Neck: Tracheostomy in place Cardiac: S1, S2 auscultated, regular rhythm and rate Pulmonary: No coarse rhonchi or breathing auscultated. On ventilator at this time GI: PEG tube in place. Extremities: No edema bilateral lower extremities. Is still seen with muscle wasting Skin: Clean dry and intact Neurologic: Alert to person place and time and situation Results Result Diagram: 09/21/16 0522 09/21/16 0529 Medications Medications Current Medications Multivitamins (Thera-Plus) 5 ml DAILY GTB Last administered on 09/22/16t 08:26; Admin Dose 5 ML; Start 09/11/16 at 09:00 Lactobacillus Acidophilus/ Rhamnosus (Culturelle) 1 cap BID GTB Last administered on 09/22/16 08:26; Admin Dose 1 CAP; Start 09/10/16 at 21:00 Ondansetron HCl (Zofran Inj) 4 mg Q4 PRN IV NAUSEA AND/OR VOMITING Last administered on 09/21/16 16:07; Admin Dose 4 MG; Start 09/10/16 at 21:00 Metoclopramide HCl (Reglan) 5 mg Q6 IV Last administered on 09/22/16 12:38; Admin Dose 5 MG; Start 09/13/16 at 12:00 Famotidine (Pepcid Iv) 20 mg BID IV Last administered on 09/22/16 08:25; Admin Dose 20 MG; Start 09/13/16 at 21:00 Lorazepam (Ativan) 0.5 mg Q8H PRN IV Anxiety Last administered on 09/21/16 00: 02; Admin Dose 0.5 MG; Start 09/13/16 at 13:30 Hydromorphone HCl (Dilaudid) 1 mg Q4H PRN IV PAIN Last administered on 12:38; Admin Dose 1 MG; Start 09/14/16 at 09:00 Ferrous Sulfate (Feosol Liquid Cup) 300 mg DAILY NGT Last administered on 08:26; Admin Dose 300 MG; Start 09/14/16 at 09:00 KATELYN ELENA Sep 22, 2016 14:50
[2016-09-22] MEDS: LORAZEPAM 2 MG INJ IV PRN (23:33)
[2016-09-23] VITALS (34 sets, daily range): BP systolic 111–155; BP diastolic 69–120; PULSE 76–103; RESP 14–24
[2016-09-23] MEDS: HYDROmorphONE 1 MG/ML SYG IV PRN ×5 (03:08→20:41)
[2016-09-23] MEDS: METOCLOPRAMIDE 10 MG INJ IV SCH ×3 (05:26→18:55)
[2016-09-23] MEDS: FERROUS SULFATE 60 MG/ML 5ML CUP NGT SCH (09:13)
[2016-09-23] MEDS: LACTOBACILLUS RHAMNOSUS CAP GTB SCH ×2 (09:13→20:41)
[2016-09-23] MEDS: MULTIVITAMINS 5 ML CUP GTB SCH (09:14)
[2016-09-23] MEDS: FAMOTIDINE 20 MG INJ IV SCH ×2 (09:14→20:41)
--- NOTE | 2016-09-23 09:55 | PN ---
DATE: 09/23/2016 SUBJECTIVE: The patient had remained stable on mechanical ventilation, no evidence of respiratory d istress this morning. PHYSICAL EXAMINATION: VITAL SIGNS: Temperature 98, pulse is 77, blood pressure 144/69, O2 saturation 96% on CPAP. NECK: Trach site is clean and intact. CARDIAC: S1, S2, no added sounds or murmurs. CHEST: Diminished air entry bilaterally but no rales or wheezes. ABDOMEN: Soft, nontender. No guarding or rebound. EXTREMITIES: No cyanosis or clubbing. NEUROLOGIC: Generalized weakness. LABORATORY DATA: BUN 23, creatinine 0.23. Chest x-ray has not been performed recently. IMPRESSION AND PLAN: 1. Muscular dystrophy, currently stable. 2. Chronic respiratory failure, now on CPAP. 3. Status post right upper lobe pneumonia with mucus plugging, status post bronchoscopy. PLAN: 1. Continue pulmonary toilet. 2. Continue CPAP trial. 3. Continue tube feeding. 4. Deep venous thrombosis and gastrointestinal prophylaxis. 5. [facility] Dictated By: ADEN OTTO/KAITLIN Conf#: [id number] DID#: [id number]
--- NOTE | 2016-09-23 14:45 | PN ---
Date/Time of Note Date/Time of Note DATE: 09/23/16 TIME: 14:42 Assessment/Plan VTE Prophylaxis VTE Prophylaxis Intervention: SCD's Lines/Catheters IV Catheter Type (from [facility]): Saline Lock Urinary Cath still in place: No Assessment/Plan Chief Complaint/Hosp Course Assessment and plan 1. Left lower lobe pneumonia/atelectasis. Off of antibiotics . Patient status post bronchoscopy with removal of mucous plug. No respiratory distress at this time. Continue pulmonary hygiene 2. Chronic respiratory failure. Continue on O2 support. On T piece as tolerated. Ventilator as needed. 3. Duchenne's muscular dystrophy. Continue with supportive measures. Physical therapy following the patient 4. Fluids/electrolytes/nutrition. Continue on PEG tube feedings DVT prophylaxis: SCDs GERD prophylaxis: H2 sherlyn Disposition and plan: Patient tentatively Plan to be transferred to long-term facility. Awaiting accepting facility. Follow-up with case management Discussed plan of care with Dr. Harrington Problems: Subjective 24 Hr Interval Summary Free Text/Dictation Seen on trach mask and tolerating well. Family at bedside. No apparent distress. Denies any shortness of breath Exam/Review of Systems Vital Signs Vitals Vital Signs Date Time Temp Pulse Resp B/P Pulse Ox O2 Delivery O2 Flow Rate FiO2 09/23/16 13:23 89 17 98 30 09/23/16 12:00 122/74 CPAP 09/23/16 04:00 98.5 09/22/16 15:15 8.0 Intake and Output 09/22/16 09/22/16 09/23/16 15:00 23:00 07:00 Intake Total 550 ml 500 ml 600 ml Output Total 200 ml 450 ml 200 ml Balance 350 ml 50 ml 400 ml Exam General: Remains comfortable. Still cachectic and frail in appearance Eyes: pupils equal round, Anicteric sclera Neck: Tracheostomy in place Cardiac: S1, S2 auscultated, regular rhythm and rate Pulmonary: Off ventilator on trach mask. No obvious wheezing or rhonchi GI: PEG tube in place. Extremities: No edema bilateral lower extremities. Is still seen with muscle wasting today Skin: Clean dry and intact Neurologic: Alert to person place and time and situation Results Result Diagram: 09/21/16 0522 09/21/16 0529 Medications Medications Current Medications Multivitamins (Thera-Plus) 5 ml DAILY GTB Last administered on 09/23/16 09:14; Admin Dose 5 ML; Start 09/11/16 at 09:00 Lactobacillus Acidophilus/ Rhamnosus (Culturelle) 1 cap BID GTB Last administered on 09/23/16 09:13; Admin Dose 1 CAP; Start 09/10/16 at 21:00 Ondansetron HCl (Zofran Inj) 4 mg Q4 PRN IV NAUSEA AND/OR VOMITING Last administered on 09/21/16 16:07; Admin Dose 4 MG; Start 09/10/16 at 21:00 Metoclopramide HCl (Reglan) 5 mg Q6 IV Last administered on 09/23/16 11:51; Admin Dose 5 MG; Start 09/13/16 at 12:00 Famotidine (Pepcid Iv) 20 mg BID IV Last administered on 09/23/16 09:14; Admin Dose 20 MG; Start 09/13/16 at 21:00 Lorazepam (Ativan) 0.5 mg Q8H PRN IV Anxiety Last administered on 09/22/16 23: 33; Admin Dose 0.5 MG; Start 09/13/16 at 13:30 Hydromorphone HCl (Dilaudid) 1 mg Q4H PRN IV PAIN Last administered on 11:52; Admin Dose 1 MG; Start 09/14/16 at 09:00 Ferrous Sulfate (Feosol Liquid Cup) 300 mg DAILY NGT Last administered on 09:13; Admin Dose 300 MG; Start 09/14/16 at 09:00 KATELYN ELENA Sep 23, 2016 14:45
[2016-09-23] MEDS: ONDANSETRON 4 MG INJ IV PRN (21:19)
[2016-09-23] MEDS: LORAZEPAM 2 MG INJ IV PRN (22:46)
[2016-09-24] VITALS (32 sets, daily range): BP systolic 107–140; BP diastolic 70–109; PULSE 74–104; RESP 12–22
[2016-09-24] MEDS: HYDROmorphONE 1 MG/ML SYG IV PRN ×3 (00:48→10:51)
[2016-09-24] MEDS: FAMOTIDINE 20 MG INJ IV SCH ×2 (00:48→08:57)
[2016-09-24] MEDS: METOCLOPRAMIDE 10 MG INJ IV SCH ×2 (00:53→05:14)
[2016-09-24] MEDS: LACTOBACILLUS RHAMNOSUS CAP GTB SCH ×2 (08:57→20:07)
[2016-09-24] MEDS: FERROUS SULFATE 60 MG/ML 5ML CUP NGT SCH (08:57)
[2016-09-24] MEDS: MULTIVITAMINS 5 ML CUP GTB SCH (08:57)
--- NOTE | 2016-09-24 10:28 | PN ---
DATE: 09/24/2016 SUBJECTIVE: Patient has remained stable in our intensive care unit. No new events on CPAP. PHYSICAL EXAMINATION: VITAL SIGNS: Temperature 98, pulse is 100, blood pressure 145/97, O2 saturation 96% on 35% FIO2. NECK: Trach site clean and intact. CARDIAC: S1, S2, no added sounds or murmurs. CHEST: Diminished air entry bilaterally. No rales or wheezes. ABDOMEN: Soft, nontender. No guarding or rebound. EXTREMITIES: No cyanosis, clubbing, 1+ edema. NEUROLOGIC: Generalized weakness. LABORATORY DATA: Pending at time of this dictation. IMPRESSION AND PLAN: 1. Chronic respiratory failure, on CPAP, currently stable. 2. History of Duchenne muscular dystrophy, no significant changes. 3. Status post pneumonia with bronchoscopy for mucous plugging. 4. Deep vein thrombosis and gastrointestinal prophylaxis in place. 5. Tube feeding as tolerated. The patient is still pending transfer back to [facility]. Dictated By: ADEN OTTO/KAITLIN Conf#: [id number] DID#: [id number]
--- NOTE | 2016-09-24 15:02 | PN ---
Date/Time of Note Date/Time of Note DATE: 09/24/16 TIME: 14:59 Assessment/Plan VTE Prophylaxis VTE Prophylaxis Intervention: SCD's Lines/Catheters IV C[facility]ter Type (from [facility]): Peripheral IV Urinary Cath still in place: No Assessment/Plan Chief Complaint/Hosp Course Assessment and plan 1. Left lower lobe pneumonia/atelectasis. Off of antibiotics . Patient status post bronchoscopy with removal of mucous plug. No respiratory distress at this time. Continue pulmonary hygiene. Appears improved 2. Chronic respiratory failure. Continue on O2 support. On T piece as tolerated. Ventilator as needed. Continue current management 3. Duchenne's muscular dystrophy. Continue with supportive measures. Continue decubitus ulcer prevention measures 4. Fluids/electrolytes/nutrition. Continue on PEG tube feedings. Monitor for residuals DVT prophylaxis: SCDs GERD prophylaxis: H2 sherlyn Disposition and plan: Patient tentatively Plan to be transferred to senior care facility. Per tentative senior care facility requests, medications transition to PEG tube. We'll follow-up. Discussed plan of care with Dr. Harrington Problems: Subjective 24 Hr Interval Summary Free Text/Dictation Comfortable at present. No reports of pain Exam/Review of Systems Vital Signs Vitals Vital Signs Date Time Temp Pulse Resp B/P Pulse Ox O2 Delivery O2 Flow Rate FiO2 09/24/16 12:00 83 09/24/16 11:50 16 98 30 09/24/16 06:00 114/80 Mechanical Ventilator 09/24/16 04:00 97.9 09/23/16 17:57 8.0 Intake and Output 09/23/16 09/23/16 09/24/16 15:00 23:00 07:00 Intake Total 500 ml 500 ml 550 ml Output Total 350 ml 375 ml 200 ml Balance 150 ml 125 ml 350 ml Exam General: Remains comfortable. Still cachectic and frail in appearance Eyes: pupils equal round, Anicteric sclera Neck: Tracheostomy in place Cardiac: S1, S2 auscultated, regular rhythm and rate noted today Pulmonary: Some remains on trach mask. No adventitious lung sounds noted GI: PEG tube in place. Extremities: No edema bilateral lower extremities. Is still seen with muscle wasting Skin: Clean dry and intact Neurologic: Alert to person place and time and situation Results Result Diagram: 09/21/16 0522 09/21/16 0529 Medications Medications Current Medications Multivitamins (Thera-Plus) 5 ml DAILY GTB Last administered on 09/24/16 08:57; Admin Dose 5 ML; Start 09/11/16 at 09:00 Lactobacillus Acidophilus/ Rhamnosus (Culturelle) 1 cap BID GTB Last administered on 09/24/16 08:57; Admin Dose 1 CAP; Start 09/10/16 at 21:00 Ondansetron HCl (Zofran Inj) 4 mg Q4 PRN IV NAUSEA AND/OR VOMITING Last administered on 09/23/16 21:19; Admin Dose 4 MG; Start 09/10/16 at 21:00 Famotidine (Pepcid Iv) 20 mg BID IV Last administered on 09/24/16 08:57; Admin Dose 20 MG; Start 09/13/16 at 21:00 Ferrous Sulfate (Feosol Liquid Cup) 300 mg DAILY NGT Last administered on 08:57; Admin Dose 300 MG; Start 09/14/16 at 09:00 Acetaminophen/ Hydrocodone Bitart ([place] (10/325)) 2 tab Q4H PRN GTB severe pain; Start 09/24/16 at 12:30 Acetaminophen/ Hydrocodone Bitart ([place] (10/325)) 1 tab Q4H PRN GTB pain; Start 09/24/16 at 12:30 Lorazepam (Ativan) 1 mg Q6H PRN PO ANXIETY; Start 09/24/16 at 12:30 Metoclopramide HCl (Reglan) 5 mg QID PO ; Start 09/24/16 at 13:00 KATELYN ELENA Sep 24, 2016 15:02
[2016-09-24] MEDS: HYDROCODONE/APAP (10/325) TAB GTB PRN ×2 (15:57→19:58)
[2016-09-24] MEDS: METOCLOPRAMIDE 5 MG TAB PO SCH ×3 (15:57→20:07)
[2016-09-24] MEDS: FAMOTIDINE 20 MG TAB GTB SCH (20:07)
[2016-09-24] MEDS: LORAZEPAM 1 MG TAB PO PRN (22:19)
[2016-09-25] VITALS (23 sets, daily range): BP systolic 121–154; BP diastolic 66–89; PULSE 70–92; RESP 13–22
[2016-09-25] MEDS: HYDROCODONE/APAP (10/325) TAB GTB PRN ×4 (00:42→19:38)
[2016-09-25] MEDS: LACTOBACILLUS RHAMNOSUS CAP GTB SCH ×2 (09:00→21:45)
[2016-09-25] MEDS: FERROUS SULFATE 60 MG/ML 5ML CUP NGT SCH (09:00)
[2016-09-25] MEDS: MULTIVITAMINS 5 ML CUP GTB SCH (09:00)
[2016-09-25] MEDS: METOCLOPRAMIDE 5 MG TAB PO SCH ×4 (09:00→21:45)
[2016-09-25] MEDS: FAMOTIDINE 20 MG TAB GTB SCH ×2 (09:00→21:45)
--- NOTE | 2016-09-25 15:17 | CONS ---
Date/Time of Note Date/Time of Note DATE: 09/25/16 TIME: 15:16 Consult Date/Type/Reason Admit Date/Time Sep 08, 2016 at 15:10 Initial Consult Date 09/08/16 Type of Consultation: Pulmonary/critical care Ordering Provider: SY VENTURA Subjective No events. Tolerating TC Objective Vital Signs Date Time Temp Pulse Resp B/P Pulse Ox O2 Delivery O2 Flow Rate FiO2 09/25/16 12:21 78 09/25/16 12:01 97.9 18 135/89 99 09/25/16 11:30 8.0 35 09/25/16 05:15 CPAP Intake and Output 09/24/16 09/24/16 09/25/16 15:00 23:00 07:00 Intake Total 500 ml 250 ml 800 ml Output Total 450 ml 250 ml 150 ml Balance 50 ml 0 ml 650 ml HEENT: Neck supple; no JVD; no LAD CVS: RRR, S1 and S2 CHEST: Clear ABD: Soft, NT, + BS EXT: No c/c/e Results/Medications Result Diagram: 09/21/1652109/21/16528 Medications Current Medications Multivitamins (Thera-Plus) 5 ml DAILY GTB Last administered on 09/25/16 09:00; Admin Dose 5 ML; Start 09/11/16 at 09:00 Lactobacillus Acidophilus/ Rhamnosus (Culturelle) 1 cap BID GTB Last administered on 09/25/16 09:00; Admin Dose 1 CAP; Start 09/10/16 at 21:00 Ferrous Sulfate (Feosol Liquid Cup) 300 mg DAILY NGT Last administered on 09:00; Admin Dose 300 MG; Start 09/14/16 at 09:00 Acetaminophen/ Hydrocodone Bitart ([place] (10/325)) 2 tab Q4H PRN GTB severe pain Last administered on 09/25/16 05:26; Admin Dose 2 TAB; Start 09/24/16 at 12: 30 Acetaminophen/ Hydrocodone Bitart ([place] (10/325)) 1 tab Q4H PRN GTB pain Last administered on 09/25/16 12:56; Admin Dose 1 TAB; Start 09/24/16 at 12:30 Lorazepam (Ativan) 1 mg Q6H PRN PO ANXIETY Last administered on 09/24/16 22:19 ; Admin Dose 1 MG; Start 09/24/16 at 12:30 Metoclopramide HCl (Reglan) 5 mg QID PO Last administered on 09/25/16 12:55; Admin Dose 5 MG; Start 09/24/16 at 13:00 Famotidine (Pepcid) 20 mg BID GTB Last administered on 09/25/16 09:00; Admin Dose 20 MG; Start 09/24/16 at 21:00 Assessment/Plan Additional Assessment/Plan IMP: 1. s/p mucus plugging event 2. chronic partial LLL atelectasis 3. chronic resp failure -- s/p trach 4. muscular dystrophy RECS: 1. TC and CPAP prn 2. PMV per RT/KAVIN LIN MD Sep 25, 2016 15:17
--- NOTE | 2016-09-25 17:51 | PN ---
Date/Time of Note Date/Time of Note DATE: 09/25/16 TIME: 17:49 Assessment/Plan VTE Prophylaxis VTE Prophylaxis Intervention: SCD's Lines/Catheters IV [facility] Type (from [facility] [place] Urinary Cath still in place: No Assessment/Plan Chief Complaint/Hosp Course Assessment and plan 1. Left lower lobe pneumonia/atelectasis. Off of antibiotics . Patient status post bronchoscopy with removal of mucous plug. No respiratory distress at this time. Continue pulmonary hygiene. Appears improved. cont current regimen 2. Chronic respiratory failure. Continue on O2 support. On T piece as tolerated. Ventilator as needed. Continue current management 3. Duchenne's muscular dystrophy. Continue with supportive measures. Continue decubitus ulcer prevention measures 4. Fluids/electrolytes/nutrition. Continue on PEG tube feedings. Monitor for residuals DVT prophylaxis: SCDs GERD prophylaxis: H2 sherlyn Disposition and plan: Patient tentatively Plan to be transferred to [facility] facility. Awaiting accepting facility. cont supportive care Discussed plan of care with Dr. Harrington Problems: Subjective 24 Hr Interval Summary Free Text/Dictation no s/s of distress Exam/Review of Systems Vital Signs Vitals Vital Signs Date Time Temp Pulse Resp B/P Pulse Ox O2 Delivery O2 Flow Rate FiO2 09/25/16 16:17 90 09/25/16 15:20 97.9 18 145/89 98 09/25/16 11:30 8.0 35 09/25/16 05:15 CPAP Intake and Output 09/24/16 09/24/16 09/25/16 14:59 22:59 06:59 Intake Total 500 ml 300 ml 800 ml Output Total 400 ml 300 ml 150 ml Balance 100 ml 0 ml 650 ml Exam General: no ss/ of distress Eyes: pupils equal round, Anicteric sclera Neck: Tracheostomy in place Cardiac: remains regular rate Pulmonary: no obvious rhonchi/rales GI: PEG tube in place. Extremities: No edema bilateral lower extremities. Is still seen with muscle wasting today Skin: Clean dry and intact Neurologic: Alert to person place and time and situation Results Result Diagram: 09/21/16 0522 09/21/16 0529 Medications Medications Current Medications Multivitamins (Thera-Plus) 5 ml DAILY GTB Last administered on 09/25/16t 09:00; Admin Dose 5 ML; Start 09/11/16 at 09:00 Lactobacillus Acidophilus/ Rhamnosus (Culturelle) 1 cap BID GTB Last administered on 09/25/16 09:00; Admin Dose 1 CAP; Start 09/10/16 at 21:00 Ferrous Sulfate (Feosol Liquid Cup) 300 mg DAILY NGT Last administered on 09:00; Admin Dose 300 MG; Start 09/14/16 at 09:00 Acetaminophen/ Hydrocodone Bitart ([place] (10/325)) 2 tab Q4H PRN GTB severe pain Last administered on 09/25/16 05:26; Admin Dose 2 TAB; Start 09/24/16 at 12: 30 Acetaminophen/ Hydrocodone Bitart ([place] (10/325)) 1 tab Q4H PRN GTB pain Last administered on 09/25/16 12:56; Admin Dose 1 TAB; Start 09/24/16 at 12:30 Lorazepam (Ativan) 1 mg Q6H PRN PO ANXIETY Last administered on 09/24/16 22:19 ; Admin Dose 1 MG; Start 09/24/16 at 12:30 Metoclopramide HCl (Reglan) 5 mg QID PO Last administered on 09/25/16 16:47; Admin Dose 5 MG; Start 09/24/16 at 13:00 Famotidine (Pepcid) 20 mg BID GTB Last administered on 09/25/16 09:00; Admin Dose 20 MG; Start 09/24/16 at 21:00 KATELYN ELENA Sep 25, 2016 17:51
[2016-09-26] VITALS (21 sets, daily range): BP systolic 114–142; BP diastolic 58–99; PULSE 65–93; RESP 13–20
[2016-09-26] MEDS: LORAZEPAM 1 MG TAB PO PRN ×2 (00:03→22:57)
[2016-09-26] MEDS: HYDROCODONE/APAP (10/325) TAB GTB PRN ×5 (03:31→21:21)
[2016-09-26] MEDS: MULTIVITAMINS 5 ML CUP GTB SCH (08:35)
[2016-09-26] MEDS: FAMOTIDINE 20 MG TAB GTB SCH ×2 (08:35→21:20)
[2016-09-26] MEDS: LACTOBACILLUS RHAMNOSUS CAP GTB SCH ×2 (08:35→21:20)
[2016-09-26] MEDS: METOCLOPRAMIDE 5 MG TAB PO SCH ×4 (08:35→21:21)
[2016-09-26] MEDS: FERROUS SULFATE 60 MG/ML 5ML CUP NGT SCH (08:35)
--- NOTE | 2016-09-26 09:17 | PN ---
Date/Time of Note Date/Time of Note DATE: 09/26/16 TIME: 09:15 Assessment/Plan VTE Prophylaxis VTE Prophylaxis Intervention: SCD's Lines/Catheters IV [facility] Type (from [facility]): Sal[place] Lock Urinary Cath still in place: No Assessment/Plan Chief Complaint/Hosp Course Assessment and plan 1. Left lower lobe pneumonia/atelectasis. Off of antibiotics . Patient status post bronchoscopy with removal of mucous plug. No respiratory distress at this time. Continue pulmonary hygiene. Appears improved. cont current regimen. Aspiration precautions 2. Chronic respiratory failure. Continue on O2 support. On T piece as tolerated. Ventilator as needed. Continue current management. Follow-up with pulmonology 3. Duchenne's muscular dystrophy. Continue with supportive measures. Continue decubitus ulcer prevention measures for patient's hospitalization 4. Fluids/electrolytes/nutrition. Continue on PEG tube feedings. Monitor for residuals. None noted today DVT prophylaxis: SCDs GERD prophylaxis: H2 sherlyn Disposition and plan: Patient tentatively Plan to be transferred to senior living facility. Awaiting accepting facility. cont supportive care. Possible discharge to facility on September 27, 2016. Will follow up with immigration case worker for excepting for some Discussed plan of care with Dr. Harrington Problems: Subjective 24 Hr Interval Summary Free Text/Dictation No apparent distress noted at this time. Remains comfortable Exam/Review of Systems Vital Signs Vitals Vital Signs Date Time Temp Pulse Resp B/P Pulse Ox O2 Delivery O2 Flow Rate FiO2 09/26/16 08:27 65 09/26/16 07:47 98.0 14 121/59 98 09/26/16 04:16 30 09/25/16 14:35 8.0 09/25/16 05:15 CPAP Intake and Output 09/25/16 09/25/16 09/26/16 15:00 23:00 07:00 Intake Total 600 ml 900 ml Output Total 475 ml 350 ml Balance 125 ml 550 ml Exam General: Comfortable at present Eyes: pupils equal round, Anicteric sclera today Neck: Tracheostomy in place. No JVD seen Cardiac: remains regular rate. Regular rhythm Pulmonary: no obvious rhonchi/rales auscultated today GI: PEG tube in place. Remains on tube feedings Extremities: No edema bilateral lower extremities. Is still seen with muscle wasting. Not much changed Neurologic: Alert to person place and time and situation Medications Medications Current Medications Multivitamins (Thera-Plus) 5 ml DAILY GTB Last administered on 09/26/16 08:35; Admin Dose 5 ML; Start 09/11/16 at 09:00 Lactobacillus Acidophilus/ Rhamnosus (Culturelle) 1 cap BID GTB Last administered on 09/26/16 08:35; Admin Dose 1 CAP; Start 09/10/16 at 21:00 Ferrous Sulfate (Feosol Liquid Cup) 300 mg DAILY NGT Last administered on 08:35; Admin Dose 300 MG; Start 09/14/16 at 09:00 Acetaminophen/ Hydrocodone Bitart ([place] (10/325)) 2 tab Q4H PRN GTB severe pain Last administered on 09/26/16 03:31; Admin Dose 2 TAB; Start 09/24/16 at 12: 30 Acetaminophen/ Hydrocodone Bitart ([place] (10/325)) 1 tab Q4H PRN GTB pain Last administered on 09/25/16 12:56; Admin Dose 1 TAB; Start 09/24/16 at 12:30 Lorazepam (Ativan) 1 mg Q6H PRN PO ANXIETY Last administered on 09/26/16 00:03 ; Admin Dose 1 MG; Start 09/24/16 at 12:30 Metoclopramide HCl (Reglan) 5 mg QID PO Last administered on 09/26/16 08:35; Admin Dose 5 MG; Start 09/24/16 at 13:00 Famotidine (Pepcid) 20 mg BID GTB Last administered on 09/26/16 08:35; Admin Dose 20 MG; Start 09/24/16 at 21:00 KATELYN ELENA Sep 26, 2016 09:17
--- NOTE | 2016-09-26 16:00 | CONS ---
Date/Time of Note Date/Time of Note DATE: 09/26/16 TIME: 15:57 Consult Date/Type/Reason Admit Date/Time Sep 08, 2016 at 15:10 Initial Consult Date 09/08/16 Type of Consultation: Pulmonary/critical care Ordering Provider: SY VENTURA Subjective No events. Tolerating TC well. Objective Vital Signs Date Time Temp Pulse Resp B/P Pulse Ox O2 Delivery O2 Flow Rate FiO2 09/26/16 15:47 97.7 76 18 142/99 98 09/26/16 13:50 8.0 35 09/25/16 05:15 CPAP Intake and Output 09/25/16 09/25/16 09/26/16 15:00 23:00 07:00 Intake Total 600 ml 900 ml Output Total 475 ml 350 ml Balance 125 ml 550 ml HEENT: Neck supple; no JVD; no LAD CVS: RRR, S1 and S2 CHEST: Clear ABD: Soft, NT, + BS EXT: No c/c/e Results/Medications Medications Current Medications Multivitamins (Thera-Plus) 5 ml DAILY GTB Last administered on 09/26/16 08:35; Admin Dose 5 ML; Start 09/11/16 at 09:00 Lactobacillus Acidophilus/ Rhamnosus (Culturelle) 1 cap BID GTB Last administered on 09/26/16 08:35; Admin Dose 1 CAP; Start 09/10/16 at 21:00 Ferrous Sulfate (Feosol Liquid Cup) 300 mg DAILY NGT Last administered on 08:35; Admin Dose 300 MG; Start 09/14/16 at 09:00 Acetaminophen/ Hydrocodone Bitart ([place] (10/325)) 2 tab Q4H PRN GTB severe pain Last administered on 09/26/16 09:23; Admin Dose 2 TAB; Start 09/24/16 at 12: 30 Acetaminophen/ Hydrocodone Bitart ([place] (10/325)) 1 tab Q4H PRN GTB pain Last administered on 09/26/16 13:18; Admin Dose 1 TAB; Start 09/24/16 at 12:30 Lorazepam (Ativan) 1 mg Q6H PRN PO ANXIETY Last administered on 09/26/16 00:03 ; Admin Dose 1 MG; Start 09/24/16 at 12:30 Metoclopramide HCl (Reglan) 5 mg QID PO Last administered on 09/26/16 13:17; Admin Dose 5 MG; Start 09/24/16 at 13:00 Famotidine (Pepcid) 20 mg BID GTB Last administered on 09/26/16 08:35; Admin Dose 20 MG; Start 09/24/16 at 21:00 Assessment/Plan Additional Assessment/Plan IMP: 1. s/p mucus plugging event 2. chronic partial LLL atelectasis 3. chronic resp failure -- s/p trach 4. muscular dystrophy RECS: 1. TC and CPAP prn 2. PMV per RT/ST 3. d/c planning KAVIN DOMINGUEZ MD Sep 26, 2016 16:00
[2016-09-27] VITALS (26 sets, daily range): BP systolic 116–141; BP diastolic 65–98; PULSE 70–88; RESP 11–90
[2016-09-27] MEDS: HYDROCODONE/APAP (10/325) TAB GTB PRN ×4 (03:25→20:09)
[2016-09-27 06:01] LABS: ADD SCAN DIFF NO
[2016-09-27 06:12] LABS: BASOPHIL # 0.1 10^3/ul (0.0-0.1); BASOPHILS % 1.4 % (0.0-2.0); EOSINOPHILS # 0.4 10^3/ul (0.0-0.5); EOSINOPHILS % 7.4 % (0.0-7.0); HEMATOCRIT 29.8 % (42.0-52.0); HEMOGLOBIN 9.5 g/dl (14.0-18.0); LYMPHOCYTES # 1.6 10^3/ul (0.8-2.9); LYMPHOCYTES % 28.2 % (15.0-51.0); MEAN CORPUSCULAR HEMOGLOBIN 28.4 pg (29.0-33.0); MEAN CORPUSCULAR HGB CONC 31.9 g/dl (32.0-37.0); MEAN CORPUSCULAR VOLUME 89.2 fl (82.0-101.0); MEAN PLATELET VOLUME 11.5 fl (7.4-10.4); MONOCYTE # 0.3 10^3/ul (0.3-0.9); NEUTROPHIL # 3.1 10^3/ul (1.6-7.5); NEUTROPHILS % 56.6 % (39.0-77.0); PLATELET COUNT 225 10^3/UL (140-415); RED BLOOD COUNT 3.34 10^6/ul (4.70-6.10); RED CELL DISTRIBUTION WIDTH 13.2 % (11.5-14.5); WHITE BLOOD COUNT 5.5 10^3/ul (4.8-10.8)
[2016-09-27 06:22] LABS: POTASSIUM 4.1 mmol/L (3.5-5.1)
[2016-09-27 06:25] LABS: CREATININE 0.2 mg/dl (0.61-1.24)
[2016-09-27 06:26] LABS: CALCIUM 9.5 mg/dl (8.4-10.2)
[2016-09-27] MEDS: MULTIVITAMINS 5 ML CUP GTB SCH (08:52)
[2016-09-27] MEDS: FAMOTIDINE 20 MG TAB GTB SCH ×2 (08:52→21:38)
[2016-09-27] MEDS: FERROUS SULFATE 60 MG/ML 5ML CUP NGT SCH (08:52)
[2016-09-27] MEDS: LACTOBACILLUS RHAMNOSUS CAP GTB SCH ×2 (08:52→21:38)
[2016-09-27] MEDS: METOCLOPRAMIDE 5 MG TAB PO SCH ×4 (08:53→21:38)
--- NOTE | 2016-09-27 11:00 | CONS ---
Date/Time of Note Date/Time of Note DATE: 09/27/16 TIME: 10:58 Assessment/Plan Assessment/Plan Additional Assessment/Plan Ventilator settings; CPAP mode pressure support of 6, 30% FiO2. Assessment recommendations; next 1. Patient admitted for left lower lobe pneumonia/atelectasis, status post bronchoscopy with clearing of mucous plug with marked interval improvement. 2. Muscular dystrophy. He remains ventilator dependent although on just pressure support of 6. Next Continue current treatment. Patient awaiting discharge to rehab facility. Consultation Date/Type/Reason Admit Date/Time Sep 08, 2016 at 15:10 Initial Consult Date 09/08/16 Type of Consultation: Pulmonary/critical care Referring Provider: SY VENTURA 24 HR Interval Summary Free Text/Dictation Patient condition remains stable. Remains awake and alert. Denies any shortness of breath, chest congestion. Next General exam; young male, on ventilator via tracheostomy currently in no distress, awake and alert. Exam/Review of Systems Vital Signs Vitals Vital Signs Date Time Temp Pulse Resp B/P Pulse Ox O2 Delivery O2 Flow Rate FiO2 09/27/16 09:13 77 22 96 30 09/27/16 07:41 98.3 140/83 09/26/16 17:26 8.0 09/25/16 05:15 CPAP Intake and Output 09/26/16 09/26/16 09/27/16 15:00 23:00 07:00 Intake Total 1000 ml 900 ml Output Total 200 ml Balance 1000 ml 700 ml Exam H EENT examination; supple neck, no JVD. No lymphadenopathy. Midline trachea. No thyromegaly. Chest examination; clear to auscultation bilaterally. S1-S2 audible, no murmurs. Regular rhythm. Abdomen examination; soft, G-tube in place. Bowel sounds audible. No organomegaly. Extremity examination; no peripheral edema. [employer] examination; patient able to move fingers in both hands to some extent. Results Result Diagram: 09/27/16 0540 09/27/16 0540 Results 24 hrs Laboratory Tests Test 09/27/16 05:40 Anion Gap 14 Basophils # 0.1 Basophils % 1.4 Blood Urea Nitrogen 21 H Calcium Level 9.5 Carbon Dioxide Level 31 Chloride Level 98 Creatinine 0.20 L Eosinophils # 0.4 Eosinophils % 7.4 H Glucose Level 116 Hematocrit 29.8 L Hemoglobin 9.5 L Lymphocytes # 1.6 Lymphocytes % 28.2 Mean Corpuscular Hemoglobin 28.4 L Mean Corpuscular Hemoglobin Concent 31.9 L Mean Corpuscular Volume 89.2 Mean Platelet Volume 11.5 H Monocytes # 0.3 Monocytes % 6.0 Neutrophils # 3.1 Neutrophils % 56.6 Nucleated Red Blood Cells # 0.0 Nucleated Red Blood Cells % 0.0 Platelet Count 225 # Potassium Level 4.1 Red Blood Count 3.34 L Red Cell Distribution Width 13.2 Sodium Level 139 White Blood Count 5.5 Medications Medications Current Medications Multivitamins (Thera-Plus) 5 ml DAILY GTB Last administered on 09/27/16 08:52; Admin Dose 5 ML; Start 09/11/16 at 09:00 Lactobacillus Acidophilus/ Rhamnosus (Culturelle) 1 cap BID GTB Last administered on 09/27/16 08:52; Admin Dose 1 CAP; Start 09/10/16 at 21:00 Ferrous Sulfate (Feosol Liquid Cup) 300 mg DAILY NGT Last administered on 08:52; Admin Dose 300 MG; Start 09/14/16 at 09:00 Acetaminophen/ Hydrocodone Bitart ([place] (10/325)) 2 tab Q4H PRN GTB severe pain Last administered on 09/27/16 03:25; Admin Dose 2 TAB; Start 09/24/16 at 12: 30 Acetaminophen/ Hydrocodone Bitart ([place] (10/325)) 1 tab Q4H PRN GTB pain Last administered on 09/27/16 08:53; Admin Dose 1 TAB; Start 09/24/16 at 12:30 Lorazepam (Ativan) 1 mg Q6H PRN PO ANXIETY Last administered on 09/26/16 22:57 ; Admin Dose 1 MG; Start 09/24/16 at 12:30 Metoclopramide HCl (Reglan) 5 mg QID PO Last administered on 09/27/16 08:53; Admin Dose 5 MG; Start 09/24/16 at 13:00 Famotidine (Pepcid) 20 mg BID GTB Last administered on 09/27/16 08:52; Admin Dose 20 MG; Start 09/24/16 at 21:00 SY VENTURA Sep 27, 2016 11:00
--- NOTE | 2016-09-27 11:56 | PN ---
Date/Time of Note Date/Time of Note DATE: 09/27/16 TIME: 11:54 Assessment/Plan VTE Prophylaxis VTE Prophylaxis Intervention: SCD's Lines/Catheters [facility] Saline Lock Urinary Cath still in place: No Assessment/Plan Chief Complaint/Hosp Course 1. Left lower lobe pneumonia/atelectasis. Status post bronchoscopy and removal of mucous plug. Continue inhaled bronchodilators. 2. Chronic respiratory failure. Status post tracheostomy. Continue inhaled bronchodilators. Currently on CPAP. 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 Continue mechanical ventilator management as per pulmonary recommendations. 4. Normocytic, normochromic anemia. Will monitor the H and H closely. Iron panel showing iron deficiency. 5. Fluid, electrolytes and nutrition. Continue G-tube feedings as tolerated. 6. Deep venous thrombosis prophylaxis. Bilateral sequential compression devices. 7. Gastrointestinal prophylaxis. Histamine 2-receptor blockers. 8. PLAN: Continue routine prokinetics. The patient remains on CPAP. Awaiting placement. Case discussed with Dr. Rivera. Critical care time 35 minutes. Problems: Subjective 24 Hr Interval Summary Free Text/Dictation Complains of some nausea. Exam/Review of Systems Vital Signs Vitals Vital Signs Date Time Temp Pulse Resp B/P Pulse Ox O2 Delivery O2 Flow Rate FiO2 09/27/16 09:13 77 22 96 30 09/27/16 07:41 98.3 140/83 09/26/16 17:26 8.0 09/25/16 05:15 CPAP Intake and Output 09/26/16 09/26/16 09/27/16 15:00 23:00 07:00 Intake Total 1000 ml 900 ml Output Total 200 ml Balance 1000 ml 700 ml Exam GENERAL: This is thin, frail-looking male lying in bed in no apparent distress. HEENT: Head normocephalic and atraumatic. Eyes: Anicteric sclerae. Conjunctivae clear. ENT: Nasal septum is midline. Oral mucosa is dry. NECK: Tracheostomy in midline. RESPIRATORY: Bilaterally diminished breath sounds. On CPAP. CARDIAC: Regular rate and rhythm. No obvious murmurs heard. ABDOMEN: Scaphoid. Left upper quadrant G-tube in place. GENITOURINARY: Deferred. EXTREMITIES: Flaccid and with minimal movement in bilateral upper extremities. Severe muscle wasting of bilateral upper and lower extremities. No edema. Peripheral pulses palpable. NEUROLOGIC: The patient is awake and alert. Results Result Diagram: 09/27/16 0540 09/27/16 0540 Results 24 hrs Laboratory Tests Test 09/27/16 05:40 Anion Gap 14 Basophils # 0.1 Basophils % 1.4 Blood Urea Nitrogen 21 H Calcium Level 9.5 Carbon Dioxide Level 31 Chloride Level 98 Creatinine 0.20 L Eosinophils # 0.4 Eosinophils % 7.4 H Glucose Level 116 Hematocrit 29.8 L Hemoglobin 9.5 L Lymphocytes # 1.6 Lymphocytes % 28.2 Mean Corpuscular Hemoglobin 28.4 L Mean Corpuscular Hemoglobin Concent 31.9 L Mean Corpuscular Volume 89.2 Mean Platelet Volume 11.5 H Monocytes # 0.3 Monocytes % 6.0 Neutrophils # 3.1 Neutrophils % 56.6 Nucleated Red Blood Cells # 0.0 Nucleated Red Blood Cells % 0.0 Platelet Count 225 # Potassium Level 4.1 Red Blood Count 3.34 L Red Cell Distribution Width 13.2 Sodium Level 139 White Blood Count 5.5 Medications Medications Current Medications Multivitamins (Thera-Plus) 5 ml DAILY GTB Last administered on 09/27/16 08:52; Admin Dose 5 ML; Start 09/11/16 at 09:00 Lactobacillus Acidophilus/ Rhamnosus (Culturelle) 1 cap BID GTB Last administered on 09/27/16 08:52; Admin Dose 1 CAP; Start 09/10/16 at 21:00 Ferrous Sulfate (Feosol Liquid Cup) 300 mg DAILY NGT Last administered on 08:52; Admin Dose 300 MG; Start 09/14/16 at 09:00 Acetaminophen/ Hydrocodone Bitart ([place] (10/325)) 2 tab Q4H PRN GTB severe pain Last administered on 09/27/16 03:25; Admin Dose 2 TAB; Start 09/24/16 at 12: 30 Acetaminophen/ Hydrocodone Bitart ([place] (10/325)) 1 tab Q4H PRN GTB pain Last administered on 09/27/16 08:53; Admin Dose 1 TAB; Start 09/24/16 at 12:30 Lorazepam (Ativan) 1 mg Q6H PRN PO ANXIETY Last administered on 09/26/16 22:57 ; Admin Dose 1 MG; Start 3/3/17 at 12:30 Metoclopramide HCl (Reglan) 5 mg QID PO Last administered on 09/27/16 08:53; Admin Dose 5 MG; Start 09/24/16 at 13:00 Famotidine (Pepcid) 20 mg BID GTB Last administered on 09/27/16 08:52; Admin Dose 20 MG; Start 09/24/16 at 21:00 DAYLIN SHAVER NP Sep 27, 2016 11:56
[2016-09-27] MEDS: LORAZEPAM 1 MG TAB PO PRN (22:59)
[2016-09-28] VITALS (20 sets, daily range): BP systolic 131–143; BP diastolic 79–94; PULSE 69–111; RESP 15–26
[2016-09-28] MEDS: HYDROCODONE/APAP (10/325) TAB GTB PRN ×5 (02:41→21:33)
[2016-09-28] MEDS: FERROUS SULFATE 60 MG/ML 5ML CUP NGT SCH (08:42)
[2016-09-28] MEDS: METOCLOPRAMIDE 5 MG TAB PO SCH ×4 (08:42→21:33)
[2016-09-28] MEDS: LACTOBACILLUS RHAMNOSUS CAP GTB SCH ×2 (08:42→21:33)
[2016-09-28] MEDS: MULTIVITAMINS 5 ML CUP GTB SCH (08:42)
[2016-09-28] MEDS: FAMOTIDINE 20 MG TAB GTB SCH ×2 (08:42→21:33)
--- NOTE | 2016-09-28 10:39 | CONS ---
Date/Time of Note Date/Time of Note DATE: 09/28/16 TIME: 10:37 Assessment/Plan Assessment/Plan Additional Assessment/Plan Assessment and recommendation; next 1. Patient admitted for left lower lobe atelectasis/pneumonia due to mucous plugging status post bronchoscopy with marked clinical and radiological improvement. 2. Muscular dystrophy. Continue current treatment. Patient awaiting transfer to rehab center. Consultation Date/Type/Reason Admit Date/Time Sep 08, 2016 at 15:10 Initial Consult Date 09/08/16 Type of Consultation: Pulmonary/critical care Referring Provider: SY VENTURA 24 HR Interval Summary Free Text/Dictation Patient condition stable. Awake alert. Currently on cool aerosol via tracheostomy. Denies any nausea. Any chest congestion. Next General exam; young male, on tracheal t Piece, currently in no distress, awake and alert. Exam/Review of Systems Vital Signs Vitals Vital Signs Date Time Temp Pulse Resp B/P Pulse Ox O2 Delivery O2 Flow Rate FiO2 09/28/16 09:10 86 15 98 30 09/28/16 07:37 98.7 134/85 09/26/16 17:26 8.0 09/25/16 05:15 CPAP Intake and Output 09/27/16 09/27/16 09/28/16 15:00 23:00 07:00 Intake Total 55 ml 60 ml Output Total 100 ml Balance 55 ml -40 ml Exam H EENT examination; supple neck, tracheostomy in place with clean insertion site. No neck masses. Chest examination; clear to auscultation bilaterally. S1-S2 audible, no murmurs. Regular rhythm. Abdomen examination; soft, G-tube in place. Nontender. Bowel sounds audible. Extremity examination; no peripheral edema. MINERAL ENGINEER examination; patient has stable finger movements in both hands Results Result Diagram: 09/27/16 0540 09/27/16 0540 Medications Medications Current Medications Multivitamins (Thera-Plus) 5 ml DAILY GTB Last administered on 09/28/16 08:42; Admin Dose 5 ML; Start 09/11/16 at 09:00 Lactobacillus Acidophilus/ Rhamnosus (Culturelle) 1 cap BID GTB Last administered on 09/28/16 08:42; Admin Dose 1 CAP; Start 09/10/16 at 21:00 Ferrous Sulfate (Feosol Liquid Cup) 300 mg DAILY NGT Last administered on 08:42; Admin Dose 300 MG; Start 09/14/16 at 09:00 Acetaminophen/ Hydrocodone Bitart ([place] (10/325)) 2 tab Q4H PRN GTB severe pain Last administered on 09/28/16 02:41; Admin Dose 2 TAB; Start 09/24/16 at 12: 30 Acetaminophen/ Hydrocodone Bitart ([place] (10/325)) 1 tab Q4H PRN GTB pain Last administered on 09/28/16 08:43; Admin Dose 1 TAB; Start 09/24/16 at 12:30 Lorazepam (Ativan) 1 mg Q6H PRN PO ANXIETY Last administered on 09/27/16 22:59 ; Admin Dose 1 MG; Start 09/24/16 at 12:30 Metoclopramide HCl (Reglan) 5 mg QID PO Last administered on 09/28/16 08:42; Admin Dose 5 MG; Start 09/24/16 at 13:00 Famotidine (Pepcid) 20 mg BID GTB Last administered on 09/28/16 08:42; Admin Dose 20 MG; Start 09/24/16 at 21:00 SY VENTURA Sep 28, 2016 10:39
--- NOTE | 2016-09-28 16:47 | PN ---
Date/Time of Note Date/Time of Note DATE: 09/28/16 TIME: 16:46 Assessment/Plan VTE Prophylaxis VTE Prophylaxis Intervention: SCD's Lines/Catheters [facility] Urinary Cath still in place: No Assessment/Plan Chief Complaint/Hosp Course 1. Left lower lobe pneumonia/atelectasis. Status post bronchoscopy and removal of mucous plug. Continue inhaled bronchodilators. 2. Chronic respiratory failure. Status post tracheostomy. Continue inhaled bronchodilators. Currently on CPAP. 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 Continue mechanical ventilator management as per pulmonary recommendations. 4. Normocytic, normochromic anemia. Will monitor the H and H closely. Iron panel showing iron deficiency. 5. Fluid, electrolytes and nutrition. Continue G-tube feedings as tolerated. 6. Deep venous thrombosis prophylaxis. Bilateral sequential compression devices. 7. Gastrointestinal prophylaxis. Histamine 2-receptor blockers. 8. PLAN: Continue routine prokinetics. The patient remains on CPAP. Awaiting placement. Case discussed with Dr. Rivera. Problems: Subjective 24 Hr Interval Summary Free Text/Dictation No changes in status. Exam/Review of Systems Vital Signs Vitals Vital Signs Date Time Temp Pulse Resp B/P Pulse Ox O2 Delivery O2 Flow Rate FiO2 09/28/16 16:24 90 09/28/16 15:40 98.6 20 138/87 98 09/28/16 15:15 30 09/26/16 17:26 8.0 09/25/16 05:15 CPAP Intake and Output 09/27/16 09/27/16 09/28/16 15:00 23:00 07:00 Intake Total 55 ml 60 ml Output Total 100 ml Balance 55 ml -40 ml Exam GENERAL: This is thin, frail-looking male lying in bed in no apparent distress. HEENT: Head normocephalic and atraumatic. Eyes: Anicteric sclerae. Conjunctivae clear. ENT: Nasal septum is midline. Oral mucosa is dry. NECK: Tracheostomy in midline. RESPIRATORY: Bilaterally diminished breath sounds. On CPAP. CARDIAC: Regular rate and rhythm. No obvious murmurs heard. ABDOMEN: Scaphoid. Left upper quadrant G-tube in place. GENITOURINARY: Deferred. EXTREMITIES: Flaccid and with minimal movement in bilateral upper extremities. Severe muscle wasting of bilateral upper and lower extremities. No edema. Peripheral pulses palpable. NEUROLOGIC: The patient is awake and alert. Results Result Diagram: 09/27/16 0540 09/27/16 0540 Medications Medications Current Medications Multivitamins (Thera-Plus) 5 ml DAILY GTB Last administered on 09/28/16 08:42; Admin Dose 5 ML; Start 09/11/16 at 09:00 Lactobacillus Acidophilus/ Rhamnosus (Culturelle) 1 cap BID GTB Last administered on 09/28/16 08:42; Admin Dose 1 CAP; Start 09/10/16 at 21:00 Ferrous Sulfate (Feosol Liquid Cup) 300 mg DAILY NGT Last administered on 08:42; Admin Dose 300 MG; Start 09/14/16 at 09:00 Acetaminophen/ Hydrocodone Bitart ([place] (10/325)) 2 tab Q4H PRN GTB severe pain Last administered on 09/28/16 02:41; Admin Dose 2 TAB; Start 09/24/16 at 12: 30 Acetaminophen/ Hydrocodone Bitart ([place] (10/325)) 1 tab Q4H PRN GTB pain Last administered on 09/28/16 13:24; Admin Dose 1 TAB; Start 09/24/16 at 12:30 Lorazepam (Ativan) 1 mg Q6H PRN PO ANXIETY Last administered on 09/27/16 22:59 ; Admin Dose 1 MG; Start 09/24/16 at 12:30 Metoclopramide HCl (Reglan) 5 mg QID PO Last administered on 09/28/16 13:24; Admin Dose 5 MG; Start 09/24/16 at 13:00 Famotidine (Pepcid) 20 mg BID GTB Last administered on 09/28/16 08:42; Admin Dose 20 MG; Start 09/24/16 at 21:00 DAYLIN SHAVER NP Sep 28, 2016 16:46
[2016-09-28] MEDS: LORAZEPAM 1 MG TAB PO PRN (23:56)
[2016-09-29] VITALS (25 sets, daily range): BP systolic 135–157; BP diastolic 84–96; PULSE 63–112; RESP 14–23
[2016-09-29] MEDS: HYDROCODONE/APAP (10/325) TAB GTB PRN ×4 (05:14→20:27)
[2016-09-29] MEDS: LACTOBACILLUS RHAMNOSUS CAP GTB SCH ×2 (08:31→21:38)
[2016-09-29] MEDS: MULTIVITAMINS 5 ML CUP GTB SCH (08:31)
[2016-09-29] MEDS: FAMOTIDINE 20 MG TAB GTB SCH ×2 (08:31→21:38)
[2016-09-29] MEDS: METOCLOPRAMIDE 5 MG TAB PO SCH ×4 (08:31→21:38)
[2016-09-29] MEDS: FERROUS SULFATE 60 MG/ML 5ML CUP NGT SCH (08:31)
[2016-09-29] MEDS: IPRATROPIUM (HFA) 12.9 GM INHALER INH PRN (10:15)
[2016-09-29] MEDS: ALBUTEROL HFA 8 GM INHALER INH PRN (10:15)
--- NOTE | 2016-09-29 10:48 | PN ---
Date/Time of Note Date/Time of Note DATE: 09/29/16 TIME: 10:47 Assessment/Plan VTE Prophylaxis VTE Prophylaxis Intervention: SCD's Lines/Catheters [facility]from [facility] Urinary Cath still in place: No Assessment/Plan Chief Complaint/Hosp Course 1. Left lower lobe pneumonia/atelectasis. Status post bronchoscopy and removal of mucous plug. Continue inhaled bronchodilators. 2. Chronic respiratory failure. Status post tracheostomy. Continue inhaled bronchodilators. Currently on CPAP. 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 Continue mechanical ventilator management as per pulmonary recommendations. 4. Normocytic, normochromic anemia. Will monitor the H and H closely. Iron panel showing iron deficiency. 5. Fluid, electrolytes and nutrition. Continue G-tube feedings as tolerated. 6. Deep venous thrombosis prophylaxis. Bilateral sequential compression devices. 7. Gastrointestinal prophylaxis. Histamine 2-receptor blockers. 8. PLAN: Continue routine prokinetics. The patient remains on CPAP. Awaiting placement. Case discussed with Dr. Rivera. Problems: Subjective 24 Hr Interval Summary Free Text/Dictation Vitals stable. Exam/Review of Systems Vital Signs Vitals Vital Signs Date Time Temp Pulse Resp B/P Pulse Ox O2 Delivery O2 Flow Rate FiO2 09/29/16 08:50 79 09/29/16 08:00 30 09/29/16 07:49 98.0 23 157/94 97 09/28/16 18:46 8.0 Intake and Output 09/28/16 09/28/16 09/29/16 15:00 23:00 07:00 Intake Total 730 ml 710 ml Output Total 200 ml 200 ml Balance 530 ml 510 ml Exam GENERAL: This is thin, frail-looking male lying in bed in no apparent distress. HEENT: Head normocephalic and atraumatic. Eyes: Anicteric sclerae. Conjunctivae clear. ENT: Nasal septum is midline. Oral mucosa is dry. NECK: Tracheostomy in midline. RESPIRATORY: Bilaterally diminished breath sounds. On CPAP. CARDIAC: Regular rate and rhythm. No obvious murmurs heard. ABDOMEN: Scaphoid. Left upper quadrant G-tube in place. GENITOURINARY: Deferred. EXTREMITIES: Flaccid and with minimal movement in bilateral upper extremities. Severe muscle wasting of bilateral upper and lower extremities. No edema. Peripheral pulses palpable. NEUROLOGIC: The patient is awake and alert. Results Result Diagram: 09/27/1640 09/27/1640 Medications Medications Current Medications Multivitamins (Thera-Plus) 5 ml DAILY GTB Last administered on 09/29/16 08:31; Admin Dose 5 ML; Start 09/11/16 at 09:00 Lactobacillus Acidophilus/ Rhamnosus (Culturelle) 1 cap BID GTB Last administered on 09/29/16 08:31; Admin Dose 1 CAP; Start 09/10/16 at 21:00 Ferrous Sulfate (Feosol Liquid Cup) 300 mg DAILY NGT Last administered on 08:31; Admin Dose 300 MG; Start 09/14/16 at 09:00 Acetaminophen/ Hydrocodone Bitart ([place] (10/325)) 2 tab Q4H PRN GTB severe pain Last administered on 09/29/16 09:56; Admin Dose 2 TAB; Start 09/24/16 at 12: 30 Acetaminophen/ Hydrocodone Bitart ([place] (10/325)) 1 tab Q4H PRN GTB pain Last administered on 09/29/16 05:14; Admin Dose 1 TAB; Start 09/24/16 at 12:30 Lorazepam (Ativan) 1 mg Q6H PRN PO ANXIETY Last administered on 09/28/16 23:56 ; Admin Dose 1 MG; Start 09/24/16 at 12:30 Metoclopramide HCl (Reglan) 5 mg QID PO Last administered on 09/29/16 08:31; Admin Dose 5 MG; Start 09/24/16 at 13:00 Famotidine (Pepcid) 20 mg BID GTB Last administered on 09/29/16 08:31; Admin Dose 20 MG; Start 09/24/16 at 21:00 DAYLIN SHAVER NP Sep 29, 2016 10:48
--- NOTE | 2016-09-29 13:34 | CONS ---
Date/Time of Note Date/Time of Note DATE: 09/29/16 TIME: 13:32 Assessment/Plan Assessment/Plan Additional Assessment/Plan Ventilator setting; patient is on CPAP mode with pressure support of 6, 30% FiO2. Assessment recommendations; next 1. Patient admitted for left lower lobe pneumonia/atelectasis due to mucous plug status post bronchoscopy with marked clinical improvement. 2. Muscular dystrophy. Patient awaiting discharge to rehab center. Consultation Date/Type/Reason Admit Date/Time Sep 08, 2016 at 15:10 Initial Consult Date 09/08/16 Type of Consultation: Pulmonary/critical care Referring Provider: SY VENTURA 24 HR Interval Summary Free Text/Dictation Patient condition remains stable. Denies any shortness of breath, chest congestion. Denies any nausea. General exam young male, on ventilator via trach ostomy currently in no distress awake and alert. Exam/Review of Systems Vital Signs Vitals Vital Signs Date Time Temp Pulse Resp B/P Pulse Ox O2 Delivery O2 Flow Rate FiO2 09/29/16 12:35 66 09/29/16 11:37 97.5 20 141/91 94 09/29/16 10:55 30 09/28/16 18:46 8.0 Intake and Output 09/28/16 09/28/16 09/29/16 15:00 23:00 07:00 Intake Total 730 ml 710 ml Output Total 200 ml 200 ml Balance 530 ml 510 ml Exam HEENT examination; supple neck, no JVD. No lymphadenopathy. Midline trachea. No thyromegaly. Pharynx is clear. Patient has good dentition. Tracheostomy in place. Chest examination; clear to auscultation bilaterally. S1-S2 audible, no murmurs. Regular rhythm. Abdomen examination; soft, G-tube in place, nontender. No organomegaly. Bowel sounds audible. Extremity examination; no peripheral edema. MEDICAL OFFICE RECEPTIONIST examination; patient able to move fingers in both hands. Results Result Diagram: 09/27/16 0540 09/27/16 0540 Medications Medications Current Medications Multivitamins (Thera-Plus) 5 ml DAILY GTB Last administered on 09/29/16 08:31; Admin Dose 5 ML; Start 09/11/16 at 09:00 Lactobacillus Acidophilus/ Rhamnosus (Culturelle) 1 cap BID GTB Last administered on 09/29/16 08:31; Admin Dose 1 CAP; Start 09/10/16 at 21:00 Ferrous Sulfate (Feosol Liquid Cup) 300 mg DAILY NGT Last administered on 08:31; Admin Dose 300 MG; Start 09/14/16 at 09:00 Acetaminophen/ Hydrocodone Bitart ([place] (10/325)) 2 tab Q4H PRN GTB severe pain Last administered on 09/29/16 09:56; Admin Dose 2 TAB; Start 09/24/16 at 12: 30 Acetaminophen/ Hydrocodone Bitart ([place] (10/325)) 1 tab Q4H PRN GTB pain Last administered on 09/29/16 05:14; Admin Dose 1 TAB; Start 09/24/16 at 12:30 Lorazepam (Ativan) 1 mg Q6H PRN PO ANXIETY Last administered on 09/28/16 23:56 ; Admin Dose 1 MG; Start 09/24/16 at 12:30 Metoclopramide HCl (Reglan) 5 mg QID PO Last administered on 09/29/16 12:35; Admin Dose 5 MG; Start 09/24/16 at 13:00 Famotidine (Pepcid) 20 mg BID GTB Last administered on 09/29/16 08:31; Admin Dose 20 MG; Start 09/24/16 at 21:00 SY VENTURA 8, 2017 13:34
[2016-09-29] MEDS: LORAZEPAM 1 MG TAB PO PRN (23:27)
[2016-09-30] VITALS (9 sets, daily range): BP systolic 131–147; BP diastolic 87–92; PULSE 66–98; RESP 14–19
[2016-09-30] MEDS: HYDROCODONE/APAP (10/325) TAB GTB PRN ×2 (03:13→08:13)
[2016-09-30] MEDS: ALBUTEROL HFA 8 GM INHALER INH PRN (07:45)
[2016-09-30] MEDS: IPRATROPIUM (HFA) 12.9 GM INHALER INH PRN (07:45)
--- NOTE | 2016-09-30 12:25 | DS ---
DATE OF ADMISSION: 09/08/2016 DATE OF DISCHARGE: 09/30/2016 FINAL DIAGNOSES: 1. Left lower lobe pneumonia/atelectasis. 2. Chronic respiratory failure. 3. Duchenne's muscular dystrophy. 4. Normocytic normochromic anemia. 5. Iron deficiency. 6. Chronic bedridden status. CONSULTANTS: 1. Dr. Rome Villa, pulmonology. 2. Dr. John Guevara, infectious disease. 3. Dr. Ruth Petersen, infectious disease. 4. Dr. Fabrizio Ye, pulmonary. HOSPITAL COURSE: This is a 26-year-old male with a past medical history of Duchenne's muscular dystrophy and respiratory failure, status post tracheostomy , who was in [facility] undergoing respiratory rehabilitation. He was transferred from [facility] to the intensive care unit because of hypoxia. There was also concern for a mucous plug, so the patient was transferred to the intensive care unit at [facility]. The patient was maintained on antibiotics as per infectious disease. The patient was seen and evaluated by pulmonology. The patient underwent a bronchoscopy on 09/09/2016 that showed partial obstruction of the left lower lobe, lateral segment, with mucus, which was suctioned out. The patient was maintained on the ventilator as per pulmonology. The patient's sputum culture showed Stenotrophomonas maltophilia. The patient was maintained on antimicrobials as per infectious disease. The rest of the patient's cultures remained negative. The patient continued to have left lower lobe atelectasis on radiographic imaging. Hence, the patient was started on chest percussion therapy. The patient has underlying Duchenne's muscular dystrophy and the patient is chronically bedridden. The patient was also noticed to have normocytic normochromic anemia. The patient was noticed to have underlying iron deficiency. Consequently, the patient was started on iron supplements. The patient also had difficulty with tolerating tube feedings. Hence, a dietary consult was obtained. The patient's tube feeding formula was changed as per dietary recommendations. The patient was also maintained on prokinetics with improvement in the patient's tolerance to tube feedings. The patient was progressing well. The patient's family initially wanted to take to the patient back to the patient's home. However, the patient needed a mechanical ventilator that is something new. The family worked with the patient' s insurance. However, there was difficulty in getting approval for a mechanical ventilator at home. The patient's family also tried transferring the patient to a hospital closer to the patient's residence, which is in [facility]. However, the patient's family was unsuccessful. Hence, the plan was to take the patient back to [facility] for further pulmonary rehabilitation. But the family refused it. Case management was working on the patient's placement until the patient was accepted to [facility] for further care and rehabilitation. DISCHARGE DISPOSITION/PLAN: The patient will be discharged to [facility]. The patient will continue the current tube feedings at the current rate. Ventilator management is as per pulmonary. Medications will be as per medication list, which are listed below. CONDITION AT DISCHARGE: Stable. DISCHARGE MEDICATIONS: 1. Hydromorphone 1 mg IV q.4h. p.r.n. pain. 2. Ferrous sulfate 300 mg via G-tube daily. 3. Pepcid 20 mg IV b.i.d. 4. Ativan 0.5 mg IV q.8h. p.r.n. anxiety. 5. Reglan 5 mg IV q.6h. around the clock. 6. Multivitamin 5 mL via G-tube daily. 7. Lactobacillus acidophilus, 1 capsule via G-tube b.i.d. 8. Albuterol HFA 4 puffs inhalation p.r.n. shortness of breath. 9. Atrovent HFA 4 puffs q.4h. p.r.n. shortness of breath. PERTINENT LABORATORIES, DIAGNOSTIC DATA AND PROCEDURES: 1. Bronchoscopy on 09/09/2016 that showed left lower lobe partial obstruction with mucus, which was suctioned out. 2. Sputum culture positive for Stenotrophomonas maltophilia. 3. Urine culture. Negative. 4. Blood cultures. Negative. 5. Influenza A and B. Negative. 6. Latest CBC: WBC 6.5, hemoglobin 9.4, hematocrit 28.7, platelet count 289. 7. Latest BMP: Sodium 136, potassium 4.7, chloride 95, carbon dioxide 30, anion gap 16, BUN 20, creatinine 0.24, glucose 113, calcium 9.4, phosphorus 4.2 , magnesium 1.8. 8. Iron panel: Iron 42, TIBC 220, iron saturation 19, ferritin 272. At this time I would like to thank all the consultants for seeing the patient, doing the necessary procedures, and providing clinical recommendations. The patient had discharge orders since 09/16/2016. However, the patient stayed in the hospital because of lack of placement. Today (09/30/2016), the patient has approval from insurance to be transferred to [facility] for further care and rehabilitation. The patient's condition remained stable and unchanged. The patient is stable to be discharged to the aforementioned facility. The case and management of this patient was fully discussed with Dr. Joseph. Approximately 40 minutes was spent on coordinating the discharge on this patient. DAYLIN JOSEPH MD AM/NTS Conf#: [id number] DID#: [id number] CC: JAD GONZALEZ MD;*EndCC* MTDD
== END 2016-09-30 09:10 | DRG 163 ==
LOC: ICU 15:10 → TEL 09-24 20:29
PROVIDERS: ADMIT Internal Medicine; ATTEND Internal Medicine
PROC: 5A1955Z Respiratory Ventilation, Greater than 96 Consecutive Hours (ICD-10-PCS; 2016-09-08)
PROC: 0BCJ8ZZ Extirpation of Matter from Left Lower Lung Lobe, Via Natural or Artificial Opening Endoscopic (ICD-10-PCS; principal; 2016-09-09)
DX: T17.890A Other foreign object in other parts of respiratory tract causing asphyxiation, initial encounter (principal); J18.9 Pneumonia, unspecified organism; Z99.11 Dependence on respirator [ventilator] status; G71.0 Muscular dystrophy; J96.11 Chronic respiratory failure with hypoxia; R65.10 Systemic inflammatory response syndrome (SIRS) of non-infectious origin without acute organ dysfunction; J98.11 Atelectasis; Z68.1 Body mass index [BMI] 19.9 or less, adult; Z93.0 Tracheostomy status; D64.9 Anemia, unspecified; Z74.01 Bed confinement status; B96.89 Other specified bacterial agents as the cause of diseases classified elsewhere; M62.58 Muscle wasting and atrophy, not elsewhere classified, other site
CPT/HCPCS: 71010; 80048; 80202; 81003; 82040; 82728; 83540; 83605; 83735; 84100; 84134; 84145; 85025; 87040; 87070; 87081; 87086; 87400; 89220; 92507; 94002; 94003; 94640; 94664; 94667; 94668; 94799; 97110; 97163; 97530; J1170; J2060; J2250; J2405; J2543; J2765; J3010; J3370; J7070